=== PATIENT | female | born 1975 | race Caucasian/White ===

== ENCOUNTER 2016-11-07 17:06 | Inpatient (IN) | payer MEDICARE, OTHER ==
[~2016-11-07] VITALS: Ht 172.7 cm; Wt 78.0 kg
[~2016-11-07 17:06] MED LIST: ACET325T21 PO; ASPI-482 PO; CARV12.52 PO; CRESTOR10 MG PO; ECON15CR TP; FLUT16SP2 NS; GLIM4TAB2 PO; HYDR-2678 PO; HYOS0.12 PO; INSU100I17 SQ; INSU100V8 SQ; LOSA1TAB16 PO; MULT-246 PO; OMEG500C3 PO; PANT40TA3 PO; SILV400C TP; SUCR1TAB29 PO
[2016-11-07] MEDS ORDERED: IV NORMAL SALINE 1000ML BAG 1,000 ML IV SCH (17:51)
[2016-11-07] MEDS ORDERED: ONDANSETRON PF 4 MG/2 ML VIAL. IV ONE (18:00)
[2016-11-07 18:08] LABS: BILIRUBIN,URINE NEGATIVE (NEG); GLUCOSE,URINE NEGATIVE (NEG); NITRITE,URINE NEGATIVE (NEG); PH,URINE 6.5; PROTEIN,URINE NEGATIVE (NEG-TRACE); UROBILINOGEN,URINE 0.2 mg/dL (0.2 mg/dL)
[2016-11-07 18:14] LABS: BARBITURATES NEG (NEG); BENZODIAZEPINES NEG (NEG); CANNABINOIDS POS (NEG); COCAINE NEG (NEG); ETHANOL, URINE NEG (NEG); METHADONE NEG (NEG); OPIATES NEG (NEG); PHENCYCLIDINE NEG (NEG)
[2016-11-07 18:17] LABS: BASO # 0.1 x10^3/uL (0.0-0.2); BASO % 1 % (0-3); EOS % 4 % (0-3); HEMATOCRIT 26.4 % (36.0-47.0); HEMOGLOBIN 8.1 g/dL (12.0-15.5); LYMPH % 18 % (24-48); MEAN CORPUSCULAR HEMOGLOBIN 25 pg (25-35); MEAN CORPUSCULAR HGB CONC 31 g/dL (31-37); MEAN CORPUSCULAR VOLUME 80 fL (79-100); MONO % 9 % (0-9); NEUT % 68 % (31-73); PLATELET COUNT 253 x10^3/uL (140-400); RED BLOOD COUNT 3.28 x10^6/uL (3.50-5.40); RED CELL DISTRIBUTION WIDTH 16.8 % (11.5-14.5); WHITE BLOOD COUNT 5.6 x10^3/uL (4.0-11.0)
[2016-11-07] MEDS: FENTANYL PF 100 MCG/2 ML VIAL. IV PRN ×5 (18:17→23:23)
[2016-11-07 18:18] LABS: BACTERIA,URINE FEW /HPF (0-FEW); RBC,URINE 0 /HPF (0-2); SQUAMOUS EPITHELIAL CELL,UR FEW /LPF
[2016-11-07 18:25] LABS: PROTHROMBIN TIME PATIENT 12.3 SEC (11.7-14.0)
[2016-11-07] MEDS ORDERED: IOHEXOL 300 MG/ML 75 ML VIAL IV ONE (18:30)
[2016-11-07 18:35] LABS: CALCIUM 8.4 mg/dL (8.5-10.1); CREATININE 0.7 mg/dL (0.6-1.0); GFR 92.2; POTASSIUM 4.1 mmol/L (3.5-5.1)
[2016-11-07 18:41] LABS: ALBUMIN 3.6 g/dL (3.4-5.0); ALBUMIN/GLOBULIN RATIO 1.2 (1.0-1.7); TOTAL BILIRUBIN 0.1 mg/dL (0.2-1.0); TOTAL PROTEIN 6.5 g/dL (6.4-8.2)
--- NOTE | 2016-11-07 19:23 | RAD ---
PROCEDURE CT abdomen pelvis with contrast. HISTORY Left lower quadrant abdominal pain, vomiting, diarrhea, bloody stool. Appendectomy. Gastric bypass. TECHNIQUE Helical CT imaging of the abdomen and pelvis is performed after 75 cc Omnipaque 300 IV contrast. Oral contrast not given. PQRS: One or more the following individualized dose reduction techniques were utilized for the study: 1. Automated exposure control. 2. Adjustment of the mA and/or kV according to patient size. 3. Use of iterative reconstruction technique. COMPARISON CT abdomen pelvis with contrast, August 17, 2014. FINDINGS Mild bilateral dependent atelectasis. Cardiac size normal. Postsurgical change gastroesophageal junction. Cholecystectomy. Calcified granulomas in the spleen. Liver, pancreas, adrenal glands, kidneys, and abdominal aortic caliber normal. Small bowel anastomosis re-demonstrated. No dilated small bowel is seen. Moderate stool throughout the colon. Appendix surgically absent. No colon wall thickening. No abdominal adenopathy or free fluid. Urinary bladder is normal. Uterus unremarkable. Mild pelvic free fluid. There is trace left adnexal free fluid. No acute bone abnormality. IMPRESSION 1. Mild pelvic and left adnexal free fluid. Finding may be physiologic. 2. No acute abdominal or pelvic abnormality. Electronically signed by: Sammy Bravo MD (Nov 07, 2016 19:21:23)
--- NOTE | 2016-11-07 19:32 | ED.ADGEN ---
Past Medical History Past Medical History: Depression, GERD, Other Additional Past Medical Histor: ulcer, diverticulosis, chronic abd pain Past Surgical History: Appendectomy, Cholecystectomy, Gastric Bypass Additional Past Surgical Histo: hiatal hernia, ovari cyst, low body lift, 3 abd laps, 2 peg tubes, reversal Alcohol Use: None Drug Use: Marijuana Adult General Chief Complaint Chief Complaint: MULTIPLE COMPLAINTS HPI HPI Patient is a 41 year old woman, history of gastric bypass surgery status post several revisions, history of chronic abdominal pain, GERD, diverticulosis, who presents to the emergency department with complaint of left lower quadrant cramping abdominal pain for the past 3 days, associated with nausea, some vomiting, and diarrhea, which now has become bloody. Patient denies any fevers or chills, any urinary complaints, any injuries. She states that she has been taking [id number] medications at home without relief. Does not currently have a GI physician. No recent surgeries or procedures. No recent travel. No chest pain, no shortness breath, no lightheadedness or dizziness. Review of Systems Review of Systems Constitutional: Denies fever or chills. [] Eyes: Denies change in visual acuity. [] HENT: Denies nasal congestion or sore throat. [] Respiratory: Denies cough or shortness of breath. [] Cardiovascular: Denies chest pain or edema. [] GI: Cramping left lower quadrant abdominal pain associated nausea, vomiting, bloody stools and diarrhea. No no tarry stools, patient with dark red blood from rectum. : Denies dysuria. [] Musculoskeletal: Denies back pain or joint pain. [] Integument: Denies rash. [] Neurologic: Denies headache, focal weakness or sensory changes. [] Endocrine: Denies polyuria or polydipsia. [] Lymphatic: Denies swollen glands. [] Psychiatric: Denies depression or anxiety. [] Current Medications Current Medications Current Medications Medications (Trade) Dose Ordered Sig/Carol Start Time Stop Time Status Last Admin Dose Admin Fentanyl Citrate 50 mcg 50 mcg PRN Q15MIN PRN 11/07/16 18:00 11/08/16 17:59 11/07/16 20:27 50 MCG Iohexol (Omnipaque 300 Mg/ml) 75 ml 1X ONCE 11/07/16 18:30 11/07/16 18:31 DC 11/07/16 18:59 75 ML Ondansetron HCl (Zofran) 4 mg 1X ONCE 11/07/16 18:00 11/07/16 18:01 DC 11/07/16 18:15 4 MG Sodium Chloride (Iv Sodium Chloride 0.9% 1000ml Bag) 1,000 ml @ 1,000 mls/hr Q1H 11/07/16 17:51 11/07/16 18:50 DC 11/07/16 18:14 1,000 MLS/HR Allergies Allergies Allergies Coded Allergies Type Severity Reaction Last Updated Verified diphenhydramine Allergy Severe hallucinations/ams 06/07/14 Yes promethazine Allergy Severe confusion/ams 06/07/14 Yes sumatriptan Allergy Severe ANAPHYLAXIS 06/07/14 Yes morphine Allergy Intermediate HIVES 06/07/14 Yes haloperidol Allergy Unknown 08/26/14 No NSAIDS (Non-Steroidal Anti-Inflamma Adverse Reaction Severe bleeding. 06/04/14 Yes metoclopramide Adverse Reaction Mild Unknown 07/29/14 Yes prochlorperazine Adverse Reaction Mild Unknown 07/29/14 Yes Physical Exam Physical Exam Constitutional: Well developed, well nourished, no acute distress, non-toxic appearance. [] HENT: Normocephalic, atraumatic, bilateral external ears normal, oropharynx moist, no oral exudates, nose normal. [] Eyes: PERRLA, EOMI, conjunctiva normal, no discharge. [] Neck: Normal range of motion, no tenderness, supple, no stridor. [] Cardiovascular:Heart rate regular rhythm, no murmur, S1, S2, rubs or gallops. [] Lungs & Thorax: Bilateral breath sounds clear to auscultation, no wheezing, rhonchi, rales. No chest wall crepitus or tenderness. [] Abdomen: Patient with tenderness to palpation of the left lower quadrant, positive voluntary guarding, no rebound, rigidity. Skin: Warm, dry, no erythema, no rash. [] Back: No tenderness, no CVA tenderness. [] Extremities: No tenderness, no cyanosis, no clubbing, ROM intact, no edema. [] Neurologic: Alert and oriented X 3, normal motor function, normal sensory function, no focal deficits noted. [] Psychologic: Affect normal, judgement normal, mood normal. [] Current Patient Data Vital Signs Vital Signs Date Time Temp Pulse Resp B/P Pulse Ox O2 Delivery O2 Flow Rate FiO2 11/07/16 19:55 64 11 104/62 97 Room Air 11/07/16 17:08 98.8 98.8 Lab Values Laboratory Tests Test 11/07/16 17:15 11/07/16 17:45 11/07/16 18:46 Urine Collection Type Unknown Urine Color Yellow Urine Clarity Clear Urine pH 6.5 Urine Specific [place] 1.010 Urine Protein Negativemg/dL (NEG-TRACE) Urine Glucose (UA) Negativemg/dL (NEG) Urine Ketones (Stick) Negativemg/dL (NEG) Urine Blood Negative (NEG) Urine Nitrite Negative (NEG) Urine Bilirubin Negative (NEG) Urine Urobilinogen Dipstick 0.2mg/dL (0.2 mg/dL) Urine Leukocyte Esterase Negative (NEG) Urine RBC 0/HPF (0-2) Urine WBC 1-4/HPF (0-4) Urine Squamous Epithelial Cells Few/LPF Urine Bacteria Few/HPF (0-FEW) Urine Opiates Screen Neg (NEG) Urine Methadone Screen Neg (NEG) Urine Barbiturates Neg (NEG) Urine Phencyclidine Screen Neg (NEG) Urine Amphetamine/Methamphetamine Neg (NEG) Urine Benzodiazepines Screen Neg (NEG) Urine Cocaine Screen Neg (NEG) Urine Cannabinoids Screen Pos (NEG) Urine Ethyl Alcohol Neg (NEG) White Blood Count 5.6x10^3/uL (4.0-11.0) Red Blood Count 3.28x10^6/uL (3.50-5.40) L Hemoglobin 8.1g/dL (12.0-15.5) L Hematocrit 26.4% (36.0-47.0) L Mean Corpuscular Volume 80fL (79-100) Mean Corpuscular Hemoglobin 25pg (25-35) Mean Corpuscular Hemoglobin Concent 31g/dL (31-37) Red Cell Distribution Width 16.8% (11.5-14.5) H Platelet Count 253x10^3/uL (140-400) Neutrophils (%) (Auto) 68% (31-73) Lymphocytes (%) (Auto) 18% (24-48) L Monocytes (%) (Auto) 9% (0-9) Eosinophils (%) (Auto) 4% (0-3) H Basophils (%) (Auto) 1% (0-3) Neutrophils # (Auto) 3.8x10^3uL (1.8-7.7) Lymphocytes # (Auto) 1.0x10^3/uL (1.0-4.8) Monocytes # (Auto) 0.5x10^3/uL (0.0-1.1) Eosinophils # (Auto) 0.2x10^3/uL (0.0-0.7) Basophils # (Auto) 0.1x10^3/uL (0.0-0.2) Prothrombin Time 12.3SEC (11.7-14.0) Prothrombin Time INR 1.0 (0.8-1.1) PTT 29SEC (24-38) Sodium Level 143mmol/L (136-145) Potassium Level 4.1mmol/L (3.5-5.1) Chloride Level 108mmol/L (98-107) H Carbon Dioxide Level 25mmol/L (21-32) Anion Gap 10 (6-14) Blood Urea Nitrogen 15mg/dL (7-20) Creatinine 0.7mg/dL (0.6-1.0) Estimated GFR (Cockcroft-Gault) 92.2 BUN/Creatinine Ratio 21 (6-20) H Glucose Level 100mg/dL (70-99) H Calcium Level 8.4mg/dL (8.5-10.1) L Total Bilirubin 0.1mg/dL (0.2-1.0) L Aspartate Amino Transferase (AST) 17U/L (15-37) Alanine Aminotransferase (ALT) 30U/L (14-59) Alkaline Phosphatase 103U/L (46-116) Total Protein 6.5g/dL (6.4-8.2) Albumin 3.6g/dL (3.4-5.0) Albumin/Globulin Ratio 1.2 (1.0-1.7) Lipase 57U/L (73-393) L Stool Occult Blood Positive (NEG) Laboratory Tests 11/07/16 17:45 Laboratory Tests 11/07/16 17:45 EKG EKG EC: Sinus rhythm, heart rate 76 beats minute, upright axis, QTC of 411, QRS of 60, [place] 148, no ST elevations or depressions, no evidence of acute ST abnormalities. As interpreted by me. [] Radiology/Procedures Radiology/Procedures [] [facility] [address] [place], [place] [id number] IMAGING REPORT Signed PATIENT: SEFERINO TAPIA ACCOUNT: [id number] : 1975 LOCATION: ER AGE: 41 SEX: F EXAM STATUS: REG ER ORD. PHYSICIAN: EILEEN VELASQUEZ DO REASON: abd pain/vomiting/diarrhea/bloody stool PROCEDURE: CT ABD PELV W/ IV CONTRST ONLY PROCEDURE CT abdomen pelvis with contrast. HISTORY Left lower quadrant abdominal pain, vomiting, diarrhea, bloody stool. Appendectomy. Gastric bypass. TECHNIQUE Helical CT imaging of the abdomen and pelvis is performed after 75 cc Omnipaque 300 IV contrast. Oral contrast not given. PQRS: One or more the following individualized dose reduction techniques were utilized for the study: 1. Automated exposure control. 2. Adjustment of the mA and/or kV according to patient size. 3. Use of iterative reconstruction technique. COMPARISON CT abdomen pelvis with contrast, August 17, 2014. FINDINGS Mild bilateral dependent atelectasis. Cardiac size normal. Postsurgical change gastroesophageal junction. Cholecystectomy. Calcified granulomas in the spleen. Liver, pancreas, adrenal glands, kidneys, and abdominal aortic caliber normal. Small bowel anastomosis re-demonstrated. No dilated small bowel is seen. Moderate stool throughout the colon. Appendix surgically absent. No colon wall thickening. No abdominal adenopathy or free fluid. Urinary bladder is normal. Uterus unremarkable. Mild pelvic free fluid. There is trace left adnexal free fluid. No acute bone abnormality. IMPRESSION 1. Mild pelvic and left adnexal free fluid. Finding may be physiologic. 2. No acute abdominal or pelvic abnormality. Electronically signed by: Sammy Bravo MD (Nov 07, 2016 19:21:23) DICTATED and SIGNED BY: SAMMY BRAVO MD DATE: 11/07/161920 Course & Med Decision Making Course & Med Decision Making Pertinent Labs and Imaging studies reviewed. (See chart for details) H and symptoms improved after receiving fentanyl, IV fluids and antiemetics in the ED. Is have some pain, but nausea is resolved. Noted to have gross blood on rectal examination. CT of abdomen and pelvis did not reveal any evidence of obstruction or inflammation, however small amount of abdominal fluid noted, which is consistent with physiologic based on radiology interpretation. Patient states she has a history of ovarian cysts, Patient with a hemoglobin of 8.1. Patient has history of anemia, but has not previously had a hemoglobin this low she denies any lightheadedness, any dizziness, and remained totally stable in the emergency department. After discussion of findings at bedside, patient is agreeable for admission to the hospital for evaluation by GI and continued monitoring. Along with symptomatic management. Findings as above discussed with of internal medicine, patient accepted to his service as a full admission to the medical telemetry floor, for monitoring, consultation with GI. Bridge orders entered per discussion. Dragon Disclaimer Dragon Disclaimer This electronic medical record was generated, in whole or in part, using a voice recognition dictation system. Departure Impression: Primary Impression: Abdominal pain Additional Impression: GI (gastrointestinal bleed) Disposition: ADMITTED INPATIENT Admitting Physician: Candelario Suárez Condition: IMPROVED Problem Qualifiers EILEEN VELASQUEZ DO Nov 07, 2016 19:32
[2016-11-07 20:01] LABS: NEG OBC FOB NEG; POS OBC FOB POS
[2016-11-07] MEDS ORDERED: FENTANYL PF 100 MCG/2 ML VIAL. IV PRN (20:45)
[2016-11-07] MEDS ORDERED: ACETAMINOPHEN 325 MG TABLET. PO PRN (20:45)
[2016-11-07 22:00] VITALS: BP 118/46
[2016-11-07 23:15] VITALS: BP 117/54
[2016-11-07] MEDS: IV NORMAL SALINE 1000ML BAG 1,000 ML IV SCH (23:17)
[2016-11-07] MEDS ORDERED: OLAN10TA3 PO (23:45)
[2016-11-07] MEDS ORDERED: OMEP40CA5 PO (23:45)
[2016-11-07] MEDS ORDERED: DIVA500T2 PO (23:45)
[2016-11-07] MEDS ORDERED: ZOLP10TA PO (23:45)
[2016-11-07] MEDS ORDERED: ONDA4TAB7 PO (23:45)
[2016-11-07] MEDS ORDERED: SERT50TA PO (23:45)
[2016-11-08] MEDS: FENTANYL PF 100 MCG/2 ML VIAL. IV PRN ×11 (00:43→23:39)
[2016-11-08] MEDS: ONDANSETRON PF 4 MG/2 ML VIAL. IV PRN ×2 (00:44→12:28)
[2016-11-08 03:15] VITALS: BP 94/56
[2016-11-08 04:11] LABS: BASO # 0.1 x10^3/uL (0.0-0.2); BASO % 1 % (0-3); EOS % 4 % (0-3); HEMOGLOBIN 7.3 g/dL (12.0-15.5); LYMPH # 1.4 x10^3/uL (1.0-4.8); LYMPH % 27 % (24-48); MEAN CORPUSCULAR HEMOGLOBIN 25 pg (25-35); MEAN CORPUSCULAR HGB CONC 30 g/dL (31-37); MEAN CORPUSCULAR VOLUME 81 fL (79-100); MONO % 7 % (0-9); NEUT % 60 % (31-73); PLATELET COUNT 204 x10^3/uL (140-400); RED BLOOD COUNT 2.97 x10^6/uL (3.50-5.40); RED CELL DISTRIBUTION WIDTH 17.1 % (11.5-14.5)
[2016-11-08 04:27] LABS: CALCIUM 8.1 mg/dL (8.5-10.1); CREATININE 0.6 mg/dL (0.6-1.0); GFR 110.2; POTASSIUM 3.5 mmol/L (3.5-5.1)
--- NOTE | 2016-11-08 06:50 | EKG ---
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
[2016-11-08 07:00] VITALS: BP 104/68
[2016-11-08] MEDS: IV NORMAL SALINE 1000ML BAG 1,000 ML IV SCH ×2 (07:56→13:35)
[2016-11-08] MEDS ORDERED: IV RINGERS,LACTATED 1000ML 1,000 ML IV SCH (10:45)
[2016-11-08] MEDS ORDERED: PROPOFOL 20 ML IV ONE ×2 (11:22→11:37)
[2016-11-08] MEDS ORDERED: FENTANYL PF 100 MCG/2 ML VIAL. ONE (11:22)
[2016-11-08] MEDS ORDERED: LIDOCAINE 2% PF Vial for OR 5 ML VIAL. ONE (11:22)
--- NOTE | 2016-11-08 11:35 | PDOC2 ---
CONSULT Date of Consult Date of Consult DATE: 11/08/16 TIME: 11:33 Reason for Consult Reason for Consult: Acute blood loss anemia/S/p gastric bypass/LLQ abd pain Current Problem List Problem List Problems Medical Problems: (1) Abdominal pain Status: Acute (2) GI (gastrointestinal bleed) Status: Acute (3) Lower GI bleeding Status: Acute Current Medications Current Medications Current Medications Fentanyl Citrate 50 mcg 50 mcg PRN Q15MIN PRN IV PAIN GREATER THAN 3/10 Last administered on 11/07/16 21:11; Start 11/07/16 at 18:00; Stop 11/07/16 at 22:51 ; Status DC Sodium Chloride (Iv Sodium Chloride 0.9% 1000ml Bag) 1,000 ml @ 1,000 mls/hr Q1H IV Last administered on 11/07/16 18:14; Start 11/07/16 at 17:51; Stop at 18:50; Status DC Ondansetron HCl (Zofran) 4 mg 1X ONCE IV Last administered on 11/07/16 18:15 ; Start 11/07/16 at 18:00; Stop 11/07/16 at 18:01; Status DC Iohexol (Omnipaque 300 Mg/ml) 75 ml 1X ONCE IV Last administered on 11/07/16 18:59; Start 11/07/16 at 18:30; Stop 11/07/16 at 18:31; Status DC Ondansetron HCl (Zofran) 4 mg PRN Q8HRS PRN IV NAUSEA/VOMITING Last administered on 11/08/16 00:44; Start 11/07/16 at 20:45; Stop 11/08/16 at 20:44 Fentanyl Citrate 50 mcg 50 mcg PRN Q1HR PRN IV PAIN; Start 11/07/16 at 20:45; Stop 11/07/16 at 22:51; Status DC Sodium Chloride (Iv Sodium Chloride 0.9% 1000ml Bag) 1,000 ml @ 125 mls/hr Q8H IV Last administered on 11/08/16 07:56; Start 11/07/16 at 20:34; Stop at 20:33 Acetaminophen (Tylenol) 650 mg PRN Q4HRS PRN PO FEVER; Start 11/07/16 at 20:45 ; Stop 11/08/16 at 20:44 Fentanyl Citrate 75 mcg 75 mcg PRN Q1HR PRN IV SEVERE PAIN Last administered on 11/08/16 09:06; Start 11/07/16 at 23:00 Lactated Ringer's (Iv Lactated Ringers) 1,000 ml @ 0 mls/hr Q0M IV Last administered on 11/08/16 10:40; Start 11/08/16 at 10:45 Fentanyl Citrate 100 mcg 100 mcg STK-MED ONCE .ROUTE ; Start 11/08/16 at 11:22; Stop 11/08/16 at 11:23; Status DC Propofol (Diprivan) 20 ml @ As Directed STK-MED ONCE IV ; Start 11/08/16 at 11: 22; Stop 11/08/16 at 11:23; Status DC Lidocaine HCl (Lidocaine Pf 2% Vial) 5 ml STK-MED ONCE .ROUTE ; Start 11/08/16 at 11:22; Stop 11/08/16 at 11:23; Status DC Active Scripts Active Lortab 5-325 mg Tablet (Hydrocodone/Acetaminophen) 1 Each Tablet 1 Tab PO PRN Q6HRS PRN Anaspaz (Hyoscyamine Sulfate) 0.125 Mg Tab.rapdis 0.125 Mg PO PRN Q4HRS PRN Protonix (Pantoprazole Sodium) 40 Mg Tablet 40 Mg PO BIDAC Carafate (Sucralfate) 1 Gm Tablet 1 Gm PO QID Reported Ambien (Zolpidem Tartrate) 10 Mg Tablet 1 Tab PO QHS Depakote (Divalproex Sodium) 500 Mg Tablet. 1 Tab PO BID Zyprexa (Olanzapine) 10 Mg Tablet 1 Tab PO QHS Zoloft (Sertraline Hcl) 50 Mg Tablet 1 Tab PO HS Zofran (Ondansetron Hcl) 4 Mg Tablet 1 Tab PO PRN Q6HRS PRN Omeprazole 40 Mg Capsule.dr 1 Cap PO BID Allergies Allergies: Coded Allergies: diphenhydramine (Verified Allergy, Severe, hallucinations/ams, 06/07/14) promethazine (Verified Allergy, Severe, confusion/ams, 06/07/14) sumatriptan (Verified Allergy, Severe, ANAPHYLAXIS, 06/07/14) haloperidol (Unverified Allergy, Intermediate, 11/07/16) morphine (Verified Allergy, Intermediate, HIVES, 06/07/14) NSAIDS (Non-Steroidal Anti-Inflamma (Verified Adverse Reaction, Severe, bleeding., 06/04/14) pt has ulcer hx, hx bleeding problems metoclopramide (Verified Adverse Reaction, Mild, 11/07/16) prochlorperazine (Verified Adverse Reaction, Mild, 11/07/16) Vitals VITALS Vital Signs Date Time Temp Pulse Resp B/P Pulse Ox O2 Delivery O2 Flow Rate FiO2 11/08/16 10:32 97.1 62 18 97 97.1 11/08/16 10:32 Room Air 11/08/16 07:00 104/68 Labs Labs Laboratory Tests Test 11/07/16 17:15 11/07/16 17:45 11/07/16 18:46 11/08/16 03:30 Urine Collection Type Unknown Urine Color Yellow Urine Clarity Clear Urine pH 6.5 Urine Specific [place] 1.010 Urine Protein Negativemg/dL (NEG-TRACE) Urine Glucose (UA) Negativemg/dL (NEG) Urine Ketones (Stick) Negativemg/dL (NEG) Urine Blood Negative (NEG) Urine Nitrite Negative (NEG) Urine Bilirubin Negative (NEG) Urine Urobilinogen Dipstick 0.2mg/dL (0.2 mg/dL) Urine Leukocyte Esterase Negative (NEG) Urine RBC 0/HPF (0-2) Urine WBC 1-4/HPF (0-4) Urine Squamous Epithelial Cells Few/LPF Urine Bacteria Few/HPF (0-FEW) Urine Opiates Screen Neg (NEG) Urine Methadone Screen Neg (NEG) Urine Barbiturates Neg (NEG) Urine Phencyclidine Screen Neg (NEG) Urine Amphetamine/Methamphetamine Neg (NEG) Urine Benzodiazepines Screen Neg (NEG) Urine Cocaine Screen Neg (NEG) Urine Cannabinoids Screen Pos (NEG) Urine Ethyl Alcohol Neg (NEG) White Blood Count 5.6x10^3/uL (4.0-11.0) 5.0x10^3/uL (4.0-11.0) Red Blood Count 3.28x10^6/uL (3.50-5.40) 2.97x10^6/uL (3.50-5.40) Hemoglobin 8.1g/dL (12.0-15.5) 7.3g/dL (12.0-15.5) Hematocrit 26.4% (36.0-47.0) 24.0% (36.0-47.0) Mean Corpuscular Volume 80fL (79-100) 81fL (79-100) Mean Corpuscular Hemoglobin 25pg (25-35) 25pg (25-35) Mean Corpuscular Hemoglobin Concent 31g/dL (31-37) 30g/dL (31-37) Red Cell Distribution Width 16.8% (11.5-14.5) 17.1% (11.5-14.5) Platelet Count 253x10^3/uL (140-400) 204x10^3/uL (140-400) Neutrophils (%) (Auto) 68% (31-73) 60% (31-73) Lymphocytes (%) (Auto) 18% (24-48) 27% (24-48) Monocytes (%) (Auto) 9% (0-9) 7% (0-9) Eosinophils (%) (Auto) 4% (0-3) 4% (0-3) Basophils (%) (Auto) 1% (0-3) 1% (0-3) Neutrophils # (Auto) 3.8x10^3uL (1.8-7.7) 3.0x10^3uL (1.8-7.7) Lymphocytes # (Auto) 1.0x10^3/uL (1.0-4.8) 1.4x10^3/uL (1.0-4.8) Monocytes # (Auto) 0.5x10^3/uL (0.0-1.1) 0.4x10^3/uL (0.0-1.1) Eosinophils # (Auto) 0.2x10^3/uL (0.0-0.7) 0.2x10^3/uL (0.0-0.7) Basophils # (Auto) 0.1x10^3/uL (0.0-0.2) 0.1x10^3/uL (0.0-0.2) Prothrombin Time 12.3SEC (11.7-14.0) Prothromb Time International Ratio 1.0 (0.8-1.1) Activated Partial Thromboplast Time 29SEC (24-38) Sodium Level 143mmol/L (136-145) 145mmol/L (136-145) Potassium Level 4.1mmol/L (3.5-5.1) 3.5mmol/L (3.5-5.1) Chloride Level 108mmol/L (98-107) 110mmol/L (98-107) Carbon Dioxide Level 25mmol/L (21-32) 29mmol/L (21-32) Anion Gap 10 (6-14) 6 (6-14) Blood Urea Nitrogen 15mg/dL (7-20) 13mg/dL (7-20) Creatinine 0.7mg/dL (0.6-1.0) 0.6mg/dL (0.6-1.0) Estimated GFR (Cockcroft-Gault) 92.2 110.2 BUN/Creatinine Ratio 21 (6-20) Glucose Level 100mg/dL (70-99) 91mg/dL (70-99) Calcium Level 8.4mg/dL (8.5-10.1) 8.1mg/dL (8.5-10.1) Total Bilirubin 0.1mg/dL (0.2-1.0) Aspartate Amino Transf (AST/SGOT) 17U/L (15-37) Alanine Aminotransferase (ALT/SGPT) 30U/L (14-59) Alkaline Phosphatase 103U/L (46-116) Total Protein 6.5g/dL (6.4-8.2) Albumin 3.6g/dL (3.4-5.0) Albumin/Globulin Ratio 1.2 (1.0-1.7) Lipase 57U/L (73-393) Stool Occult Blood Positive (NEG) Laboratory Tests Test 11/07/16 17:15 11/07/16 17:45 11/07/16 18:46 11/08/16 03:30 Urine Collection Type Unknown Urine Color Yellow Urine Clarity Clear Urine pH 6.5 Urine Specific [place] 1.010 Urine Protein Negativemg/dL (NEG-TRACE) Urine Glucose (UA) Negativemg/dL (NEG) Urine Ketones (Stick) Negativemg/dL (NEG) Urine Blood Negative (NEG) Urine Nitrite Negative (NEG) Urine Bilirubin Negative (NEG) Urine Urobilinogen Dipstick 0.2mg/dL (0.2 mg/dL) Urine Leukocyte Esterase Negative (NEG) Urine RBC 0/HPF (0-2) Urine WBC 1-4/HPF (0-4) Urine Squamous Epithelial Cells Few/LPF Urine Bacteria Few/HPF (0-FEW) Urine Opiates Screen Neg (NEG) Urine Methadone Screen Neg (NEG) Urine Barbiturates Neg (NEG) Urine Phencyclidine Screen Neg (NEG) Urine Amphetamine/Methamphetamine Neg (NEG) Urine Benzodiazepines Screen Neg (NEG) Urine Cocaine Screen Neg (NEG) Urine Cannabinoids Screen Pos (NEG) Urine Ethyl Alcohol Neg (NEG) White Blood Count 5.6x10^3/uL (4.0-11.0) 5.0x10^3/uL (4.0-11.0) Red Blood Count 3.28x10^6/uL (3.50-5.40) 2.97x10^6/uL (3.50-5.40) Hemoglobin 8.1g/dL (12.0-15.5) 7.3g/dL (12.0-15.5) Hematocrit 26.4% (36.0-47.0) 24.0% (36.0-47.0) Mean Corpuscular Volume 80fL (79-100) 81fL (79-100) Mean Corpuscular Hemoglobin 25pg (25-35) 25pg (25-35) Mean Corpuscular Hemoglobin Concent 31g/dL (31-37) 30g/dL (31-37) Red Cell Distribution Width 16.8% (11.5-14.5) 17.1% (11.5-14.5) Platelet Count 253x10^3/uL (140-400) 204x10^3/uL (140-400) Neutrophils (%) (Auto) 68% (31-73) 60% (31-73) Lymphocytes (%) (Auto) 18% (24-48) 27% (24-48) Monocytes (%) (Auto) 9% (0-9) 7% (0-9) Eosinophils (%) (Auto) 4% (0-3) 4% (0-3) Basophils (%) (Auto) 1% (0-3) 1% (0-3) Neutrophils # (Auto) 3.8x10^3uL (1.8-7.7) 3.0x10^3uL (1.8-7.7) Lymphocytes # (Auto) 1.0x10^3/uL (1.0-4.8) 1.4x10^3/uL (1.0-4.8) Monocytes # (Auto) 0.5x10^3/uL (0.0-1.1) 0.4x10^3/uL (0.0-1.1) Eosinophils # (Auto) 0.2x10^3/uL (0.0-0.7) 0.2x10^3/uL (0.0-0.7) Basophils # (Auto) 0.1x10^3/uL (0.0-0.2) 0.1x10^3/uL (0.0-0.2) Prothrombin Time 12.3SEC (11.7-14.0) Prothromb Time International Ratio 1.0 (0.8-1.1) Activated Partial Thromboplast Time 29SEC (24-38) Sodium Level 143mmol/L (136-145) 145mmol/L (136-145) Potassium Level 4.1mmol/L (3.5-5.1) 3.5mmol/L (3.5-5.1) Chloride Level 108mmol/L (98-107) 110mmol/L (98-107) Carbon Dioxide Level 25mmol/L (21-32) 29mmol/L (21-32) Anion Gap 10 (6-14) 6 (6-14) Blood Urea Nitrogen 15mg/dL (7-20) 13mg/dL (7-20) Creatinine 0.7mg/dL (0.6-1.0) 0.6mg/dL (0.6-1.0) Estimated GFR (Cockcroft-Gault) 92.2 110.2 BUN/Creatinine Ratio 21 (6-20) Glucose Level 100mg/dL (70-99) 91mg/dL (70-99) Calcium Level 8.4mg/dL (8.5-10.1) 8.1mg/dL (8.5-10.1) Total Bilirubin 0.1mg/dL (0.2-1.0) Aspartate Amino Transf (AST/SGOT) 17U/L (15-37) Alanine Aminotransferase (ALT/SGPT) 30U/L (14-59) Alkaline Phosphatase 103U/L (46-116) Total Protein 6.5g/dL (6.4-8.2) Albumin 3.6g/dL (3.4-5.0) Albumin/Globulin Ratio 1.2 (1.0-1.7) Lipase 57U/L (73-393) Stool Occult Blood Positive (NEG) Assessment/Plan Assessment/Plan Acute blood loss anemia- S/p gastric bypass, with history of anastomotic ulcers , differential also includes malignancy, AVMS, IBD, colon/gastric polyps, ischemia, and/or Claros's. Plan serial cbcs transfusional support egd to further assess if unrevealing, then bleeding scan/heme parameters and/or colonoscopy may be needed pending clinical course Full note dictated WILL KELLER MD Nov 08, 2016 11:35
--- NOTE | 2016-11-08 11:47 | PDOC4 ---
Operative Note Operative Note EGD Meds propofol per anesthesia Pre-op dx acute blood loss anemia/melena Post-op dx s/p gastric bypass reversal non-erosive gastritis Plan bleedings scan transfuse 1 unit PRBC WILL KELLER MD Nov 08, 2016 11:46
--- NOTE | 2016-11-08 14:23 | PDOC1 ---
History and Physical Current Problem List Problem List Problems Medical Problems: (1) Abdominal pain Status: Acute (2) GI (gastrointestinal bleed) Status: Acute (3) Lower GI bleeding Status: Acute Current Medications Current Medications Current Medications Medications (Trade) Dose Ordered Sig/Carol Start Time Stop Time Status Last Admin Dose Admin Acetaminophen (Tylenol) 650 mg PRN Q4HRS PRN 11/07/16 20:45 11/08/16 20:44 Fentanyl Citrate (Fentanyl 2ml Vial) 100 mcg STK-MED ONCE 11/08/16 11:22 11/08/16 11:23 DC Fentanyl Citrate 50 mcg 50 mcg PRN Q1HR PRN 11/07/16 20:45 11/07/16 22:51 DC Fentanyl Citrate 75 mcg 75 mcg PRN Q1HR PRN 11/07/16 23:00 11/08/16 13:36 75 MCG Iohexol (Omnipaque 300 Mg/ml) 75 ml 1X ONCE 11/07/16 18:30 11/07/16 18:31 DC 11/07/16 18:59 75 ML Lactated Ringer's (Iv Lactated Ringers) 1,000 ml @ 0 mls/hr Q0M 11/08/16 10:45 11/08/16 10:40 100 MLS/HR Lidocaine HCl 5 ml 5 ml STK-MED ONCE 11/08/16 11:22 11/08/16 11:23 DC Ondansetron HCl (Zofran) 4 mg PRN Q8HRS PRN 11/07/16 20:45 11/08/16 20:44 11/08/16 12:28 4 MG Propofol (Diprivan) 20 ml @ As Directed STK-MED ONCE 11/08/16 11:37 11/08/16 11:38 DC Sodium Chloride (Iv Sodium Chloride 0.9% 1000ml Bag) 1,000 ml @ 125 mls/hr Q8H 11/07/16 20:34 11/08/16 20:33 11/08/16 13:35 125 MLS/HR Allergies Allergies Allergies Coded Allergies Type Severity Reaction Last Updated Verified diphenhydramine Allergy Severe hallucinations/ams 11/08/16 Yes promethazine Allergy Severe confusion/ams 11/08/16 Yes sumatriptan Allergy Severe ANAPHYLAXIS 11/08/16 Yes haloperidol Allergy Intermediate 11/08/16 No morphine Allergy Intermediate HIVES 06/07/14 Yes NSAIDS (Non-Steroidal Anti-Inflamma Adverse Reaction Severe bleeding. 06/04/14 Yes metoclopramide Adverse Reaction Mild 11/07/16 Yes prochlorperazine Adverse Reaction Mild 11/07/16 Yes ROS Review of System CONSTITUTIONAL: No fever or chills EYES: No recent changes SKIN: No rash or itching CARDIOVASCULAR: No chest pain, syncope, palpitations, or edema RESPIRATORY: No SOB or cough GASTROINTESTINAL: abdominal pain, Black color stool NEUROLOGICAL: No headaches or weakness ENDOCRINE: No cold or heat intolerance GENITOURINARY: No urgency or frequency of urination MUSCULOSKELETAL: No back pain or joint pain LYMPHATICS: No enlarged lymph nodes PSYCHIATRIC: No anxiety or depression Physical Exam Physical Exam GEN.: No apparent distress. Alert and oriented. HEENT: Head is normocephalic, atraumatic NECK: Supple.no JVD LUNGS: Clear to auscultation. normal airflow HEART: RRR, S1, S2 present. Peripheral pulses intact ABDOMEN: Soft, RLQ tender. Positive bowel sounds. EXTREMITIES: Without any cyanosis. NEUROLOGIC: Normal speech, normal tone PSYCHIATRIC: Normal affect, normal mood. SKIN: No ulcerations Vitals Vitals Vital Signs Date Time Temp Pulse Resp B/P Pulse Ox O2 Delivery O2 Flow Rate FiO2 11/08/16 13:36 Room Air 11/08/16 12:04 98.0 68 20 116/73 96 98.0 Labs Labs Laboratory Tests Test 11/07/16 17:15 11/07/16 17:45 11/07/16 18:46 11/08/16 03:30 Urine Collection Type Unknown Urine Color Yellow Urine Clarity Clear Urine pH 6.5 Urine Specific [place] 1.010 Urine Protein Negativemg/dL (NEG-TRACE) Urine Glucose (UA) Negativemg/dL (NEG) Urine Ketones (Stick) Negativemg/dL (NEG) Urine Blood Negative (NEG) Urine Nitrite Negative (NEG) Urine Bilirubin Negative (NEG) Urine Urobilinogen Dipstick 0.2mg/dL (0.2 mg/dL) Urine Leukocyte Esterase Negative (NEG) Urine RBC 0/HPF (0-2) Urine WBC 1-4/HPF (0-4) Urine Squamous Epithelial Cells Few/LPF Urine Bacteria Few/HPF (0-FEW) Urine Opiates Screen Neg (NEG) Urine Methadone Screen Neg (NEG) Urine Barbiturates Neg (NEG) Urine Phencyclidine Screen Neg (NEG) Urine Amphetamine/Methamphetamine Neg (NEG) Urine Benzodiazepines Screen Neg (NEG) Urine Cocaine Screen Neg (NEG) Urine Cannabinoids Screen Pos (NEG) Urine Ethyl Alcohol Neg (NEG) White Blood Count 5.6x10^3/uL (4.0-11.0) 5.0x10^3/uL (4.0-11.0) Red Blood Count 3.28x10^6/uL (3.50-5.40) 2.97x10^6/uL (3.50-5.40) Hemoglobin 8.1g/dL (12.0-15.5) 7.3g/dL (12.0-15.5) Hematocrit 26.4% (36.0-47.0) 24.0% (36.0-47.0) Mean Corpuscular Volume 80fL (79-100) 81fL (79-100) Mean Corpuscular Hemoglobin 25pg (25-35) 25pg (25-35) Mean Corpuscular Hemoglobin Concent 31g/dL (31-37) 30g/dL (31-37) Red Cell Distribution Width 16.8% (11.5-14.5) 17.1% (11.5-14.5) Platelet Count 253x10^3/uL (140-400) 204x10^3/uL (140-400) Neutrophils (%) (Auto) 68% (31-73) 60% (31-73) Lymphocytes (%) (Auto) 18% (24-48) 27% (24-48) Monocytes (%) (Auto) 9% (0-9) 7% (0-9) Eosinophils (%) (Auto) 4% (0-3) 4% (0-3) Basophils (%) (Auto) 1% (0-3) 1% (0-3) Neutrophils # (Auto) 3.8x10^3uL (1.8-7.7) 3.0x10^3uL (1.8-7.7) Lymphocytes # (Auto) 1.0x10^3/uL (1.0-4.8) 1.4x10^3/uL (1.0-4.8) Monocytes # (Auto) 0.5x10^3/uL (0.0-1.1) 0.4x10^3/uL (0.0-1.1) Eosinophils # (Auto) 0.2x10^3/uL (0.0-0.7) 0.2x10^3/uL (0.0-0.7) Basophils # (Auto) 0.1x10^3/uL (0.0-0.2) 0.1x10^3/uL (0.0-0.2) Prothrombin Time 12.3SEC (11.7-14.0) Prothromb Time International Ratio 1.0 (0.8-1.1) Activated Partial Thromboplast Time 29SEC (24-38) Sodium Level 143mmol/L (136-145) 145mmol/L (136-145) Potassium Level 4.1mmol/L (3.5-5.1) 3.5mmol/L (3.5-5.1) Chloride Level 108mmol/L (98-107) 110mmol/L (98-107) Carbon Dioxide Level 25mmol/L (21-32) 29mmol/L (21-32) Anion Gap 10 (6-14) 6 (6-14) Blood Urea Nitrogen 15mg/dL (7-20) 13mg/dL (7-20) Creatinine 0.7mg/dL (0.6-1.0) 0.6mg/dL (0.6-1.0) Estimated GFR (Cockcroft-Gault) 92.2 110.2 BUN/Creatinine Ratio 21 (6-20) Glucose Level 100mg/dL (70-99) 91mg/dL (70-99) Calcium Level 8.4mg/dL (8.5-10.1) 8.1mg/dL (8.5-10.1) Total Bilirubin 0.1mg/dL (0.2-1.0) Aspartate Amino Transf (AST/SGOT) 17U/L (15-37) Alanine Aminotransferase (ALT/SGPT) 30U/L (14-59) Alkaline Phosphatase 103U/L (46-116) Total Protein 6.5g/dL (6.4-8.2) Albumin 3.6g/dL (3.4-5.0) Albumin/Globulin Ratio 1.2 (1.0-1.7) Lipase 57U/L (73-393) Stool Occult Blood Positive (NEG) Laboratory Tests Test 11/07/16 17:15 11/07/16 17:45 11/07/16 18:46 11/08/16 03:30 Urine Collection Type Unknown Urine Color Yellow Urine Clarity Clear Urine pH 6.5 Urine Specific [place] 1.010 Urine Protein Negativemg/dL (NEG-TRACE) Urine Glucose (UA) Negativemg/dL (NEG) Urine Ketones (Stick) Negativemg/dL (NEG) Urine Blood Negative (NEG) Urine Nitrite Negative (NEG) Urine Bilirubin Negative (NEG) Urine Urobilinogen Dipstick 0.2mg/dL (0.2 mg/dL) Urine Leukocyte Esterase Negative (NEG) Urine RBC 0/HPF (0-2) Urine WBC 1-4/HPF (0-4) Urine Squamous Epithelial Cells Few/LPF Urine Bacteria Few/HPF (0-FEW) Urine Opiates Screen Neg (NEG) Urine Methadone Screen Neg (NEG) Urine Barbiturates Neg (NEG) Urine Phencyclidine Screen Neg (NEG) Urine Amphetamine/Methamphetamine Neg (NEG) Urine Benzodiazepines Screen Neg (NEG) Urine Cocaine Screen Neg (NEG) Urine Cannabinoids Screen Pos (NEG) Urine Ethyl Alcohol Neg (NEG) White Blood Count 5.6x10^3/uL (4.0-11.0) 5.0x10^3/uL (4.0-11.0) Red Blood Count 3.28x10^6/uL (3.50-5.40) 2.97x10^6/uL (3.50-5.40) Hemoglobin 8.1g/dL (12.0-15.5) 7.3g/dL (12.0-15.5) Hematocrit 26.4% (36.0-47.0) 24.0% (36.0-47.0) Mean Corpuscular Volume 80fL (79-100) 81fL (79-100) Mean Corpuscular Hemoglobin 25pg (25-35) 25pg (25-35) Mean Corpuscular Hemoglobin Concent 31g/dL (31-37) 30g/dL (31-37) Red Cell Distribution Width 16.8% (11.5-14.5) 17.1% (11.5-14.5) Platelet Count 253x10^3/uL (140-400) 204x10^3/uL (140-400) Neutrophils (%) (Auto) 68% (31-73) 60% (31-73) Lymphocytes (%) (Auto) 18% (24-48) 27% (24-48) Monocytes (%) (Auto) 9% (0-9) 7% (0-9) Eosinophils (%) (Auto) 4% (0-3) 4% (0-3) Basophils (%) (Auto) 1% (0-3) 1% (0-3) Neutrophils # (Auto) 3.8x10^3uL (1.8-7.7) 3.0x10^3uL (1.8-7.7) Lymphocytes # (Auto) 1.0x10^3/uL (1.0-4.8) 1.4x10^3/uL (1.0-4.8) Monocytes # (Auto) 0.5x10^3/uL (0.0-1.1) 0.4x10^3/uL (0.0-1.1) Eosinophils # (Auto) 0.2x10^3/uL (0.0-0.7) 0.2x10^3/uL (0.0-0.7) Basophils # (Auto) 0.1x10^3/uL (0.0-0.2) 0.1x10^3/uL (0.0-0.2) Prothrombin Time 12.3SEC (11.7-14.0) Prothromb Time International Ratio 1.0 (0.8-1.1) Activated Partial Thromboplast Time 29SEC (24-38) Sodium Level 143mmol/L (136-145) 145mmol/L (136-145) Potassium Level 4.1mmol/L (3.5-5.1) 3.5mmol/L (3.5-5.1) Chloride Level 108mmol/L (98-107) 110mmol/L (98-107) Carbon Dioxide Level 25mmol/L (21-32) 29mmol/L (21-32) Anion Gap 10 (6-14) 6 (6-14) Blood Urea Nitrogen 15mg/dL (7-20) 13mg/dL (7-20) Creatinine 0.7mg/dL (0.6-1.0) 0.6mg/dL (0.6-1.0) Estimated GFR (Cockcroft-Gault) 92.2 110.2 BUN/Creatinine Ratio 21 (6-20) Glucose Level 100mg/dL (70-99) 91mg/dL (70-99) Calcium Level 8.4mg/dL (8.5-10.1) 8.1mg/dL (8.5-10.1) Total Bilirubin 0.1mg/dL (0.2-1.0) Aspartate Amino Transf (AST/SGOT) 17U/L (15-37) Alanine Aminotransferase (ALT/SGPT) 30U/L (14-59) Alkaline Phosphatase 103U/L (46-116) Total Protein 6.5g/dL (6.4-8.2) Albumin 3.6g/dL (3.4-5.0) Albumin/Globulin Ratio 1.2 (1.0-1.7) Lipase 57U/L (73-393) Stool Occult Blood Positive (NEG) VTE Prophylaxis Ordered VTE Prophylaxis Devices: Contraindicated VTE Pharmacological Prophylaxi: Contraindicated CURT COOL MD Nov 08, 2016 14:23
[2016-11-08] MEDS ORDERED: ONDANSETRON PF 4 MG/2 ML VIAL. IV PRN (14:30)
[2016-11-08] MEDS ORDERED: hydrALAZINE 20 MG/ML VIAL. IVP PRN (14:30)
[2016-11-08] MEDS ORDERED: ACETAMINOPHEN 325 MG TABLET. PO PRN (14:30)
[2016-11-08] MEDS ORDERED: ALBUTEROL SULFATE 2.5 MG/3 ML NEBU. NEB PRN (14:30)
[2016-11-08] MEDS ORDERED: FENTANYL PF 100 MCG/2 ML VIAL. IV PRN (14:45)
[2016-11-08] MEDS: DIVALPROEX DELAYED RELEASE 500 MG TABLET.DR. PO SCH ×2 (15:00→21:49)
[2016-11-08] MEDS: HYDROCODONE/APAP 5/325MG TABLET. PO PRN (15:13)
[2016-11-08] MEDS: SUCRALFATE 1 GM TABLET. PO SCH ×2 (16:30→21:50)
[2016-11-08] MEDS ORDERED: PANTOPRAZOLE 40 MG TABLET.DR. PO SCH (16:30)
--- NOTE | 2016-11-08 16:52 | RAD ---
Radionuclide GI bleeding scan, 11/08/2016: History: Recent GI bleed The study was performed utilizing 33 mCi of technetium 99m and a labeled red blood cell technique. Imaging obtained out to one hour shows no abnormal accumulation of activity in the GI tract to suggest active GI tract bleeding. IMPRESSION: Negative radionuclide GI bleeding scan.
[2016-11-08 17:29] LABS: HEMATOCRIT 25.3 % (36.0-47.0); RED BLOOD COUNT 3.2 x10^6/uL (3.50-5.40); RED CELL DISTRIBUTION WIDTH 16.9 % (11.5-14.5); WHITE BLOOD COUNT 4.7 x10^3/uL (4.0-11.0)
--- NOTE | 2016-11-08 18:37 | HP ---
ADMIT DATE: 11/08/2016 CHIEF COMPLAINT: Abdominal pain and tarry black stool. HISTORY OF PRESENT ILLNESS: A 41-year-old female patient with several comorbid conditions, mostly gastrointestinal related such as GERD, previous gastric bypass surgeries with ulcers, diverticulosis and chronic abdominal pain presented to the ER with complaints of left lower quadrant abdominal pain for a few days associated nausea, vomiting and some bloody stools. Given her prior history of GI complaints, initial workup in the ER showed the patient's hemoglobin is 8.1 with MCV is 80 and fecal occult blood test was positive. The patient was admitted to the hospital for Gastroenterology consultation and further workup for suspected upper GI bleeding. At the time of examination, the patient already had EGD, which appears to be reportedly normal and no acute new diagnosis found. The patient still complains of left lower quadrant abdominal pain with some headaches. PAST MEDICAL HISTORY: Depression, GERD, gastric ulcer, cholecystectomy, appendectomy, gastric bypass surgery, hiatal hernia surgery, ovarian cyst, 3 laparoscopic surgeries and 2 PEG tubes. PERSONAL HISTORY: No smoking, no alcohol, occasionally takes marijuana. FAMILY HISTORY: Unknown to the patient. REVIEW OF SYSTEMS: Please see my electronic H and P. PHYSICAL EXAMINATION: Please see my electronic H and P. LABORATORY FINDINGS: Fecal occult test positive. CBC: Hemoglobin is 8.1, MCV is 80 and MCHC is 31, platelets 253. Chemistry: Sodium 143, potassium is 4.1, chloride is 108, anion gap 10, BUN is 15, creatinine 0.7, glucose 100, calcium is 8.4. Lipase is 81. Toxicology positive for cannabinoids. ____ negative. Coagulation panel: PT/INR within normal limits. IMAGING STUDIES: CT abdomen and pelvis with contrast showed mild pelvic and left adnexal free fluid. ASSESSMENT AND PLAN: 1. Abdominal pain and suspected upper gastrointestinal bleeding. 2. Prior history of gastric bypass surgeries with anastomotic ulcers. 3. Anemia, based on hemoglobin ____ suspected acute blood loss anemia. PLAN: 1. She has been admitted to the hospital for further workup. She has EGD this morning. I will continue Protonix IV for now and consult Gastroenterology. 2. IV hydration at 125 mL per hour, n.p.o. 3. Pain control with fentanyl 25 mcg q. 2 hours. 4. Home medications reviewed and reconciled. 5. Monitor hemoglobin q. 6 hours. 6. Two units of PRBC has been ordered. If hemoglobin drops less than 7, we will transfuse blood. 7. Gastroenterology is considering nuclear medicine scan to rule out any bleeding. 8. No DVT prophylaxis. 9. Prognosis is guarded. 10. Plan explained to the patient. CURT COOL MD DR: COLLETTE/rina JOB#: [id number] / [id number]
[2016-11-08 19:15] VITALS: BP 136/62
[2016-11-08] MEDS: ZOLPIDEM 5 MG TABLET. PO PRN ×2 (21:49→22:28)
[2016-11-08] MEDS: SERTRALINE 50 MG TABLET. PO SCH (21:50)
[2016-11-08] MEDS: OLANZAPINE 5 MG TABLET. PO SCH (21:50)
[2016-11-08] MEDS: PANTOPRAZOLE IV PUSH 40 MG VIAL. IVP SCH (21:50)
[2016-11-08 23:15] VITALS: BP 107/58
[2016-11-09] VITALS (7 sets, daily range): BP systolic 87–122; BP diastolic 48–80
[2016-11-09] MEDS: FENTANYL PF 100 MCG/2 ML VIAL. IV PRN ×5 (04:05→22:13)
[2016-11-09] MEDS: ONDANSETRON ODT 4 MG TAB.RAPDIS. PO PRN ×2 (04:05→13:10)
[2016-11-09 05:28] LABS: BASO # 0.1 x10^3/uL (0.0-0.2); BASO % 2 % (0-3); EOS % 5 % (0-3); HEMATOCRIT 26.7 % (36.0-47.0); HEMOGLOBIN 8.2 g/dL (12.0-15.5); LYMPH # 1.3 x10^3/uL (1.0-4.8); LYMPH % 32 % (24-48); MEAN CORPUSCULAR HEMOGLOBIN 25 pg (25-35); MEAN CORPUSCULAR HGB CONC 31 g/dL (31-37); MEAN CORPUSCULAR VOLUME 82 fL (79-100); MONO % 9 % (0-9); NEUT % 53 % (31-73); PLATELET COUNT 202 x10^3/uL (140-400); RED BLOOD COUNT 3.27 x10^6/uL (3.50-5.40); RED CELL DISTRIBUTION WIDTH 17.3 % (11.5-14.5); WHITE BLOOD COUNT 3.9 x10^3/uL (4.0-11.0)
[2016-11-09 05:45] LABS: CALCIUM 8.5 mg/dL (8.5-10.1); CREATININE 0.6 mg/dL (0.6-1.0); GFR 110.2; POTASSIUM 4.2 mmol/L (3.5-5.1)
[2016-11-09] MEDS: SUCRALFATE 1 GM TABLET. PO SCH ×4 (07:30→21:00)
[2016-11-09] MEDS: PANTOPRAZOLE IV PUSH 40 MG VIAL. IVP SCH ×2 (08:24→22:15)
[2016-11-09] MEDS: DIVALPROEX DELAYED RELEASE 500 MG TABLET.DR. PO SCH ×2 (08:25→22:13)
--- NOTE | 2016-11-09 10:25 | ACF ---
Admit Criteria Forms Admit Criteria Forms Admit Criteria Forms ABDOMINAL PAIN Clinical Indications for Admission to Inpatient Care (Place 'X' for any and all applicable criteria): Admission is indicated for ANY ONE of the following(1)(2)(3)(4)(5): [ ]I. Inpatient admission required rather than observation care (Also use Abdominal Pain: Observation Care, as appropriate) because of ANY ONE of the following: [ ]a) Severe pain requiring acute inpatient management [ ]b) Identification of etiology/finding that requires inpatient care (eg, aortic dissection, free air) [ ]c) Absent bowel sounds with complete ileus(6) [ ]d) Suspected toxic megacolon [ ]e) Severe electrolyte abnormalities requiring inpatient care [ ]f) High fever or infection requiring inpatient admission as indicated by ANY ONE of following(7)(8): [ ] i) Appropriate outpatient or observational care antimicrobial treatment unavailable, not effective, or not feasible [ ] ii) Documented bacteremia [ ] iii) Temperature > 104.9 degrees F (oral) [ ] iv) T >103.1 F (oral) or < 96.8 F(rectal) that does not respond to all emergency treatment measures [ ]g) Signs of intestinal obstruction [B] [ ]h) Hemodynamic instability [ ]i) IV fluid to replace significant ongoing losses (greater than 3 L/m2 per day) (12)(13) [ ]j) Percutaneous or open drainage (eg, abscess, biliary tract ) procedures [ ]k) Parenteral nutrition regimen that must be implemented on inpatient basis [ ]l) Other condition,treatment or monitoring requiring inpatient admission. [ ]II. Peritoneal signs present [X]III. Surgery needed that cannot be performed on an ambulatory basis. [ ]IV. Evaluation requires patient to not eat or drink for extended period ( eg, more than 24 hours). [ ]V. Contraindications and/or Inappropriate clinical situations for Observational Care in patients with abdominal pain, when ANY ONE of the following is required: [ ]a) Thorough evaluation is required to prevent catastrophic events due to delays in diagnosing (e.g.Mesenteric ischemia) 1,3 [ ]b) Patient with severe pathology or with chronic symptoms unlikely to improve in the ED stay (3) [ ]. General contraindications and/or Inappropriate clinical situations for Observational Care in patients with abdominal pain, when ANY ONE of the following is required: [ ]a) Prediction of prolongation of LOS based on ANY ONE of the following may be considered as a contraindication for observational care 2, 3, 4, 5, 6, 7, 8, 9, 10, 11 [ ]i) Age > 65 yrs. [ ]ii) Patient arriving by ambulance [ ]iii) Patient with high acuity [ ]iv) Patient requiring vital sign monitoring [ ]v) Patient on IV medication [ ]b) Systolic blood pressures 180mmHg 3,12 [ ]c) Patient with altered mental status including delirium and other alteration of consciousness, (3) [ ]d) Patient whose discharge disposition will be to a [facility] home or rehabilitation home should not be managed in Emergency Department Observation Unit. CMS rule requires 3 days hospital stay before such placement.3,13 [ ]e) Patient with failure to thrive due to broad array of etiologies 3,16,17 [ ]f) Inability to ambulate 3,14 Extended stay beyond goal length of stay may be needed for(2)(3): [ ]a) Persistent abdominal pain with suspected intra-abdominal process [ ]b) Diagnosed condition requiring continued stay (e.g., pancreatitis, complicated diverticulitis) [ ]c) Surgery (e.g., colectomy) The original [employer] content created by [employer] has been revised. The portions of the content which have been revised are identified through the use of italic text or in bold, and [facility] has neither reviewed nor approved the modified material.All other unmodified content is copyright [employer]. Please see references footnoted in the original [employer] [facility] edition 2016 GEOFF NICHOLS Nov 09, 2016 10:24
--- NOTE | 2016-11-09 11:48 | PDOC2 ---
CONSULT Date of Consult Date of Consult DATE: 11/08/16 TIME: 11:47 Current Problem List Problem List Problems Medical Problems: (1) Abdominal pain Status: Acute (2) GI (gastrointestinal bleed) Status: Acute (3) Lower GI bleeding Status: Acute Current Medications Current Medications Current Medications Fentanyl Citrate 50 mcg 50 mcg PRN Q15MIN PRN IV PAIN GREATER THAN 3/10 Last administered on 11/07/16 21:11; Start 11/07/16 at 18:00; Stop 11/07/16 at 22:51 ; Status DC Sodium Chloride (Iv Sodium Chloride 0.9% 1000ml Bag) 1,000 ml @ 1,000 mls/hr Q1H IV Last administered on 11/07/16 18:14; Start 11/07/16 at 17:51; Stop at 18:50; Status DC Ondansetron HCl (Zofran) 4 mg 1X ONCE IV Last administered on 11/07/16 18:15 ; Start 11/07/16 at 18:00; Stop 11/07/16 at 18:01; Status DC Iohexol (Omnipaque 300 Mg/ml) 75 ml 1X ONCE IV Last administered on 11/07/16 18:59; Start 11/07/16 at 18:30; Stop 11/07/16 at 18:31; Status DC Ondansetron HCl (Zofran) 4 mg PRN Q8HRS PRN IV NAUSEA/VOMITING Last administered on 11/08/16 12:28; Start 11/07/16 at 20:45; Stop 11/08/16 at 20:44 ; Status DC Fentanyl Citrate 50 mcg 50 mcg PRN Q1HR PRN IV PAIN; Start 11/07/16 at 20:45; Stop 11/07/16 at 22:51; Status DC Sodium Chloride (Iv Sodium Chloride 0.9% 1000ml Bag) 1,000 ml @ 125 mls/hr Q8H IV Last administered on 11/08/16 13:35; Start 11/07/16 at 20:34; Stop at 20:33; Status DC Acetaminophen (Tylenol) 650 mg PRN Q4HRS PRN PO FEVER; Start 11/07/16 at 20:45 ; Stop 11/08/16 at 20:44; Status DC Fentanyl Citrate 75 mcg 75 mcg PRN Q1HR PRN IV SEVERE PAIN Last administered on 11/08/16 13:36; Start 11/07/16 at 23:00; Stop 11/08/16 at 14:44; Status DC Lactated Ringer's (Iv Lactated Ringers) 1,000 ml @ 0 mls/hr Q0M IV Last administered on 11/08/16 10:40; Start 11/08/16 at 10:45 Fentanyl Citrate 100 mcg 100 mcg STK-MED ONCE .ROUTE ; Start 11/08/16 at 11:22; Stop 11/08/16 at 11:23; Status DC Propofol (Diprivan) 20 ml @ As Directed STK-MED ONCE IV ; Start 11/08/16 at 11: 22; Stop 11/08/16 at 11:23; Status DC Lidocaine HCl 5 ml 5 ml STK-MED ONCE .ROUTE ; Start 11/08/16 at 11:22; Stop at 11:23; Status DC Propofol (Diprivan) 20 ml @ As Directed STK-MED ONCE IV ; Start 11/08/16 at 11: 37; Stop 11/08/16 at 11:38; Status DC Acetaminophen (Tylenol) 325 mg PRN Q6HRS PRN PO MILD PAIN / TEMP; Start at 14:30 Hydralazine HCl (Apresoline) 10 mg PRN Q4HRS PRN IVP ELEVATED BP, SEE COMMENTS ; Start 11/08/16 at 14:30 Ondansetron HCl (Zofran) 4 mg PRN Q8HRS PRN IV NAUSEA/VOMITING; Start 11/08/16 at 14:30; Stop 11/08/16 at 15:32; Status DC Albuterol Sulfate (Ventolin Neb Soln) 2.5 mg PRN Q4HRS PRN NEB SHORTNESS OF BREATH; Start 11/08/16 at 14:30 Divalproex Sodium (Depakote) 500 mg BID PO Last administered on 11/09/16 08:25 ; Start 11/08/16 at 15:00 Acetaminophen/ Hydrocodone Bitart (Lortab 5/325) 1 tab PRN Q6HRS PRN PO PAIN Last administered on 11/08/16 15:13; Start 11/08/16 at 14:30 Pantoprazole Sodium (Protonix) 40 mg BIDAC PO ; Start 11/08/16 at 16:30; Status UNV Sertraline HCl (Zoloft) 50 mg HS PO Last administered on 11/08/16 21:50; Start 11/08/16 at 21:00 Sucralfate (Carafate) 1 gm QIDACHS PO Last administered on 11/08/16 21:50; Start 11/08/16 at 16:30 Olanzapine (Zyprexa) 10 mg QHS PO Last administered on 11/08/16 21:50; Start 11/08/16 at 21:00 Ondansetron HCl (Zofran Odt) 4 mg PRN Q6HRS PRN PO NAUSEA Last administered on 11/09/16 04:05; Start 11/08/16 at 14:45 Zolpidem Tartrate (Ambien) 5 mg PRN QHS PRN PO INSOMNIA Last administered on 22:28; Start 11/08/16 at 15:00 Pantoprazole Sodium (Protonix Vial) 40 mg BID IVP Last administered on 08:24; Start 11/08/16 at 21:00 Fentanyl Citrate (Fentanyl 2ml Vial) 25 mcg PRN Q4HRS PRN IV PAIN; Start at 14:45; Stop 11/08/16 at 15:03; Status DC Fentanyl Citrate (Fentanyl 2ml Vial) 25 mcg PRN Q4HRS PRN IV PAIN Last administered on 11/09/16 08:28; Start 11/08/16 at 15:03 Active Scripts Active Lortab 5-325 mg Tablet (Hydrocodone/Acetaminophen) 1 Each Tablet 1 Tab PO PRN Q6HRS PRN Anaspaz (Hyoscyamine Sulfate) 0.125 Mg Tab.rapdis 0.125 Mg PO PRN Q4HRS PRN Protonix (Pantoprazole Sodium) 40 Mg Tablet 40 Mg PO BIDAC Carafate (Sucralfate) 1 Gm Tablet 1 Gm PO QID Reported Ambien (Zolpidem Tartrate) 10 Mg Tablet 1 Tab PO QHS Depakote (Divalproex Sodium) 500 Mg Tablet.dr 1 Tab PO BID Zyprexa (Olanzapine) 10 Mg Tablet 1 Tab PO QHS Zoloft (Sertraline Hcl) 50 Mg Tablet 1 Tab PO HS Zofran (Ondansetron Hcl) 4 Mg Tablet 1 Tab PO PRN Q6HRS PRN Omeprazole 40 Mg Capsule. 1 Cap PO BID Allergies Allergies: Coded Allergies: diphenhydramine (Verified Allergy, Severe, hallucinations/ams, 11/08/16) promethazine (Verified Allergy, Severe, confusion/ams, 11/08/16) sumatriptan (Verified Allergy, Severe, ANAPHYLAXIS, 11/08/16) haloperidol (Unverified Allergy, Intermediate, 11/08/16) morphine (Verified Allergy, Intermediate, HIVES, 06/07/14) NSAIDS (Non-Steroidal Anti-Inflamma (Verified Adverse Reaction, Severe, bleeding., 06/04/14) pt has ulcer hx, hx bleeding problems metoclopramide (Verified Adverse Reaction, Mild, 11/07/16) prochlorperazine (Verified Adverse Reaction, Mild, 11/07/16) Vitals VITALS Vital Signs Date Time Temp Pulse Resp B/P Pulse Ox O2 Delivery O2 Flow Rate FiO2 11/09/16 10:54 97.6 60 16 91/48 97 Room Air 97.6 Labs Labs Laboratory Tests Test 11/07/16 17:15 11/07/16 17:45 11/07/16 18:46 11/08/16 03:30 Urine Collection Type Unknown Urine Color Yellow Urine Clarity Clear Urine pH 6.5 Urine Specific [place] 1.010 Urine Protein Negativemg/dL (NEG-TRACE) Urine Glucose (UA) Negativemg/dL (NEG) Urine Ketones (Stick) Negativemg/dL (NEG) Urine Blood Negative (NEG) Urine Nitrite Negative (NEG) Urine Bilirubin Negative (NEG) Urine Urobilinogen Dipstick 0.2mg/dL (0.2 mg/dL) Urine Leukocyte Esterase Negative (NEG) Urine RBC 0/HPF (0-2) Urine WBC 1-4/HPF (0-4) Urine Squamous Epithelial Cells Few/LPF Urine Bacteria Few/HPF (0-FEW) Urine Opiates Screen Neg (NEG) Urine Methadone Screen Neg (NEG) Urine Barbiturates Neg (NEG) Urine Phencyclidine Screen Neg (NEG) Urine Amphetamine/Methamphetamine Neg (NEG) Urine Benzodiazepines Screen Neg (NEG) Urine Cocaine Screen Neg (NEG) Urine Cannabinoids Screen Pos (NEG) Urine Ethyl Alcohol Neg (NEG) White Blood Count 5.6x10^3/uL (4.0-11.0) 5.0x10^3/uL (4.0-11.0) Red Blood Count 3.28x10^6/uL (3.50-5.40) 2.97x10^6/uL (3.50-5.40) Hemoglobin 8.1g/dL (12.0-15.5) 7.3g/dL (12.0-15.5) Hematocrit 26.4% (36.0-47.0) 24.0% (36.0-47.0) Mean Corpuscular Volume 80fL (79-100) 81fL (79-100) Mean Corpuscular Hemoglobin 25pg (25-35) 25pg (25-35) Mean Corpuscular Hemoglobin Concent 31g/dL (31-37) 30g/dL (31-37) Red Cell Distribution Width 16.8% (11.5-14.5) 17.1% (11.5-14.5) Platelet Count 253x10^3/uL (140-400) 204x10^3/uL (140-400) Neutrophils (%) (Auto) 68% (31-73) 60% (31-73) Lymphocytes (%) (Auto) 18% (24-48) 27% (24-48) Monocytes (%) (Auto) 9% (0-9) 7% (0-9) Eosinophils (%) (Auto) 4% (0-3) 4% (0-3) Basophils (%) (Auto) 1% (0-3) 1% (0-3) Neutrophils # (Auto) 3.8x10^3uL (1.8-7.7) 3.0x10^3uL (1.8-7.7) Lymphocytes # (Auto) 1.0x10^3/uL (1.0-4.8) 1.4x10^3/uL (1.0-4.8) Monocytes # (Auto) 0.5x10^3/uL (0.0-1.1) 0.4x10^3/uL (0.0-1.1) Eosinophils # (Auto) 0.2x10^3/uL (0.0-0.7) 0.2x10^3/uL (0.0-0.7) Basophils # (Auto) 0.1x10^3/uL (0.0-0.2) 0.1x10^3/uL (0.0-0.2) Prothrombin Time 12.3SEC (11.7-14.0) Prothromb Time International Ratio 1.0 (0.8-1.1) Activated Partial Thromboplast Time 29SEC (24-38) Sodium Level 143mmol/L (136-145) 145mmol/L (136-145) Potassium Level 4.1mmol/L (3.5-5.1) 3.5mmol/L (3.5-5.1) Chloride Level 108mmol/L (98-107) 110mmol/L (98-107) Carbon Dioxide Level 25mmol/L (21-32) 29mmol/L (21-32) Anion Gap 10 (6-14) 6 (6-14) Blood Urea Nitrogen 15mg/dL (7-20) 13mg/dL (7-20) Creatinine 0.7mg/dL (0.6-1.0) 0.6mg/dL (0.6-1.0) Estimated GFR (Cockcroft-Gault) 92.2 110.2 BUN/Creatinine Ratio 21 (6-20) Glucose Level 100mg/dL (70-99) 91mg/dL (70-99) Calcium Level 8.4mg/dL (8.5-10.1) 8.1mg/dL (8.5-10.1) Total Bilirubin 0.1mg/dL (0.2-1.0) Aspartate Amino Transf (AST/SGOT) 17U/L (15-37) Alanine Aminotransferase (ALT/SGPT) 30U/L (14-59) Alkaline Phosphatase 103U/L (46-116) Total Protein 6.5g/dL (6.4-8.2) Albumin 3.6g/dL (3.4-5.0) Albumin/Globulin Ratio 1.2 (1.0-1.7) Lipase 57U/L (73-393) Stool Occult Blood Positive (NEG) Test 11/08/16 17:10 11/09/16 03:55 White Blood Count 4.7x10^3/uL (4.0-11.0) 3.9x10^3/uL (4.0-11.0) Red Blood Count 3.20x10^6/uL (3.50-5.40) 3.27x10^6/uL (3.50-5.40) Hemoglobin 8.0g/dL (12.0-15.5) 8.2g/dL (12.0-15.5) Hematocrit 25.3% (36.0-47.0) 26.7% (36.0-47.0) Mean Corpuscular Volume 79fL (79-100) 82fL (79-100) Mean Corpuscular Hemoglobin 25pg (25-35) 25pg (25-35) Mean Corpuscular Hemoglobin Concent 32g/dL (31-37) 31g/dL (31-37) Red Cell Distribution Width 16.9% (11.5-14.5) 17.3% (11.5-14.5) Platelet Count 218x10^3/uL (140-400) 202x10^3/uL (140-400) Neutrophils (%) (Auto) 53% (31-73) Lymphocytes (%) (Auto) 32% (24-48) Monocytes (%) (Auto) 9% (0-9) Eosinophils (%) (Auto) 5% (0-3) Basophils (%) (Auto) 2% (0-3) Neutrophils # (Auto) 2.1x10^3uL (1.8-7.7) Lymphocytes # (Auto) 1.3x10^3/uL (1.0-4.8) Monocytes # (Auto) 0.4x10^3/uL (0.0-1.1) Eosinophils # (Auto) 0.2x10^3/uL (0.0-0.7) Basophils # (Auto) 0.1x10^3/uL (0.0-0.2) Sodium Level 145mmol/L (136-145) Potassium Level 4.2mmol/L (3.5-5.1) Chloride Level 109mmol/L (98-107) Carbon Dioxide Level 28mmol/L (21-32) Anion Gap 8 (6-14) Blood Urea Nitrogen 8mg/dL (7-20) Creatinine 0.6mg/dL (0.6-1.0) Estimated GFR (Cockcroft-Gault) 110.2 Glucose Level 80mg/dL (70-99) Calcium Level 8.5mg/dL (8.5-10.1) Laboratory Tests Test 11/08/16 17:10 11/09/16 03:55 White Blood Count 4.7x10^3/uL (4.0-11.0) 3.9x10^3/uL (4.0-11.0) Red Blood Count 3.20x10^6/uL (3.50-5.40) 3.27x10^6/uL (3.50-5.40) Hemoglobin 8.0g/dL (12.0-15.5) 8.2g/dL (12.0-15.5) Hematocrit 25.3% (36.0-47.0) 26.7% (36.0-47.0) Mean Corpuscular Volume 79fL (79-100) 82fL (79-100) Mean Corpuscular Hemoglobin 25pg (25-35) 25pg (25-35) Mean Corpuscular Hemoglobin Concent 32g/dL (31-37) 31g/dL (31-37) Red Cell Distribution Width 16.9% (11.5-14.5) 17.3% (11.5-14.5) Platelet Count 218x10^3/uL (140-400) 202x10^3/uL (140-400) Neutrophils (%) (Auto) 53% (31-73) Lymphocytes (%) (Auto) 32% (24-48) Monocytes (%) (Auto) 9% (0-9) Eosinophils (%) (Auto) 5% (0-3) Basophils (%) (Auto) 2% (0-3) Neutrophils # (Auto) 2.1x10^3uL (1.8-7.7) Lymphocytes # (Auto) 1.3x10^3/uL (1.0-4.8) Monocytes # (Auto) 0.4x10^3/uL (0.0-1.1) Eosinophils # (Auto) 0.2x10^3/uL (0.0-0.7) Basophils # (Auto) 0.1x10^3/uL (0.0-0.2) Sodium Level 145mmol/L (136-145) Potassium Level 4.2mmol/L (3.5-5.1) Chloride Level 109mmol/L (98-107) Carbon Dioxide Level 28mmol/L (21-32) Anion Gap 8 (6-14) Blood Urea Nitrogen 8mg/dL (7-20) Creatinine 0.6mg/dL (0.6-1.0) Estimated GFR (Cockcroft-Gault) 110.2 Glucose Level 80mg/dL (70-99) Calcium Level 8.5mg/dL (8.5-10.1) Assessment/Plan Assessment/Plan FND Wk # [id number] no acute surgical recs Thanks for consult WILLIE MEDINA MD Nov 09, 2016 11:48
[2016-11-09] MEDS: HYDROCODONE/APAP 5/325MG TABLET. PO PRN ×2 (11:54→19:15)
--- NOTE | 2016-11-09 12:21 | PDOC ---
PROGRESS NOTES Chief Complaint Chief Complaint cc: gi bleeding A/P 1. Abdominal pain and suspected upper gastrointestinal bleeding, S/P EGD, non- erosive gastritis: Monitor hemoglobin, negative nuclear medicine scan for bleeding. clear liquid diet, follow GI recommendations. 2. Prior history of gastric bypass surgeries with anastomotic ulcers. 3. Anxiety /Depression, Stable 4. Intractable nausea: on Zofran prn Vitals Vitals Vital Signs Date Time Temp Pulse Resp B/P Pulse Ox O2 Delivery O2 Flow Rate FiO2 11/09/16 11:54 16 99 Room Air 11/09/16 11:49 98.5 68 100/62 98.5 Physical Exam General: Alert, Oriented X3 Heart: Normal S1, Normal S2 Lungs: Clear Abdomen: Normal bowel sounds Labs LABS Laboratory Tests Test 11/08/16 17:10 11/09/16 03:55 White Blood Count 4.7x10^3/uL (4.0-11.0) 3.9x10^3/uL (4.0-11.0) Red Blood Count 3.20x10^6/uL (3.50-5.40) 3.27x10^6/uL (3.50-5.40) Hemoglobin 8.0g/dL (12.0-15.5) 8.2g/dL (12.0-15.5) Hematocrit 25.3% (36.0-47.0) 26.7% (36.0-47.0) Mean Corpuscular Volume 79fL (79-100) 82fL (79-100) Mean Corpuscular Hemoglobin 25pg (25-35) 25pg (25-35) Mean Corpuscular Hemoglobin Concent 32g/dL (31-37) 31g/dL (31-37) Red Cell Distribution Width 16.9% (11.5-14.5) 17.3% (11.5-14.5) Platelet Count 218x10^3/uL (140-400) 202x10^3/uL (140-400) Neutrophils (%) (Auto) 53% (31-73) Lymphocytes (%) (Auto) 32% (24-48) Monocytes (%) (Auto) 9% (0-9) Eosinophils (%) (Auto) 5% (0-3) Basophils (%) (Auto) 2% (0-3) Neutrophils # (Auto) 2.1x10^3uL (1.8-7.7) Lymphocytes # (Auto) 1.3x10^3/uL (1.0-4.8) Monocytes # (Auto) 0.4x10^3/uL (0.0-1.1) Eosinophils # (Auto) 0.2x10^3/uL (0.0-0.7) Basophils # (Auto) 0.1x10^3/uL (0.0-0.2) Sodium Level 145mmol/L (136-145) Potassium Level 4.2mmol/L (3.5-5.1) Chloride Level 109mmol/L (98-107) Carbon Dioxide Level 28mmol/L (21-32) Anion Gap 8 (6-14) Blood Urea Nitrogen 8mg/dL (7-20) Creatinine 0.6mg/dL (0.6-1.0) Estimated GFR (Cockcroft-Gault) 110.2 Glucose Level 80mg/dL (70-99) Calcium Level 8.5mg/dL (8.5-10.1) Assessment and Plan Assessmemt and Plan Problems Medical Problems: (1) Abdominal pain Status: Acute (2) GI (gastrointestinal bleed) Status: Acute (3) Lower GI bleeding Status: Acute Problems: Comment Review of Relevant I have reviewed the following items fredo (where applicable) has been applied. Labs Laboratory Tests Test 11/07/16 17:15 11/07/16 17:45 11/07/16 18:46 11/08/16 03:30 Urine Collection Type Unknown Urine Color Yellow Urine Clarity Clear Urine pH 6.5 Urine Specific [place] 1.010 Urine Protein Negativemg/dL (NEG-TRACE) Urine Glucose (UA) Negativemg/dL (NEG) Urine Ketones (Stick) Negativemg/dL (NEG) Urine Blood Negative (NEG) Urine Nitrite Negative (NEG) Urine Bilirubin Negative (NEG) Urine Urobilinogen Dipstick 0.2mg/dL (0.2 mg/dL) Urine Leukocyte Esterase Negative (NEG) Urine RBC 0/HPF (0-2) Urine WBC 1-4/HPF (0-4) Urine Squamous Epithelial Cells Few/LPF Urine Bacteria Few/HPF (0-FEW) Urine Opiates Screen Neg (NEG) Urine Methadone Screen Neg (NEG) Urine Barbiturates Neg (NEG) Urine Phencyclidine Screen Neg (NEG) Urine Amphetamine/Methamphetamine Neg (NEG) Urine Benzodiazepines Screen Neg (NEG) Urine Cocaine Screen Neg (NEG) Urine Cannabinoids Screen Pos (NEG) Urine Ethyl Alcohol Neg (NEG) White Blood Count 5.6x10^3/uL (4.0-11.0) 5.0x10^3/uL (4.0-11.0) Red Blood Count 3.28x10^6/uL (3.50-5.40) 2.97x10^6/uL (3.50-5.40) Hemoglobin 8.1g/dL (12.0-15.5) 7.3g/dL (12.0-15.5) Hematocrit 26.4% (36.0-47.0) 24.0% (36.0-47.0) Mean Corpuscular Volume 80fL (79-100) 81fL (79-100) Mean Corpuscular Hemoglobin 25pg (25-35) 25pg (25-35) Mean Corpuscular Hemoglobin Concent 31g/dL (31-37) 30g/dL (31-37) Red Cell Distribution Width 16.8% (11.5-14.5) 17.1% (11.5-14.5) Platelet Count 253x10^3/uL (140-400) 204x10^3/uL (140-400) Neutrophils (%) (Auto) 68% (31-73) 60% (31-73) Lymphocytes (%) (Auto) 18% (24-48) 27% (24-48) Monocytes (%) (Auto) 9% (0-9) 7% (0-9) Eosinophils (%) (Auto) 4% (0-3) 4% (0-3) Basophils (%) (Auto) 1% (0-3) 1% (0-3) Neutrophils # (Auto) 3.8x10^3uL (1.8-7.7) 3.0x10^3uL (1.8-7.7) Lymphocytes # (Auto) 1.0x10^3/uL (1.0-4.8) 1.4x10^3/uL (1.0-4.8) Monocytes # (Auto) 0.5x10^3/uL (0.0-1.1) 0.4x10^3/uL (0.0-1.1) Eosinophils # (Auto) 0.2x10^3/uL (0.0-0.7) 0.2x10^3/uL (0.0-0.7) Basophils # (Auto) 0.1x10^3/uL (0.0-0.2) 0.1x10^3/uL (0.0-0.2) Prothrombin Time 12.3SEC (11.7-14.0) Prothromb Time International Ratio 1.0 (0.8-1.1) Activated Partial Thromboplast Time 29SEC (24-38) Sodium Level 143mmol/L (136-145) 145mmol/L (136-145) Potassium Level 4.1mmol/L (3.5-5.1) 3.5mmol/L (3.5-5.1) Chloride Level 108mmol/L (98-107) 110mmol/L (98-107) Carbon Dioxide Level 25mmol/L (21-32) 29mmol/L (21-32) Anion Gap 10 (6-14) 6 (6-14) Blood Urea Nitrogen 15mg/dL (7-20) 13mg/dL (7-20) Creatinine 0.7mg/dL (0.6-1.0) 0.6mg/dL (0.6-1.0) Estimated GFR (Cockcroft-Gault) 92.2 110.2 BUN/Creatinine Ratio 21 (6-20) Glucose Level 100mg/dL (70-99) 91mg/dL (70-99) Calcium Level 8.4mg/dL (8.5-10.1) 8.1mg/dL (8.5-10.1) Total Bilirubin 0.1mg/dL (0.2-1.0) Aspartate Amino Transf (AST/SGOT) 17U/L (15-37) Alanine Aminotransferase (ALT/SGPT) 30U/L (14-59) Alkaline Phosphatase 103U/L (46-116) Total Protein 6.5g/dL (6.4-8.2) Albumin 3.6g/dL (3.4-5.0) Albumin/Globulin Ratio 1.2 (1.0-1.7) Lipase 57U/L (73-393) Stool Occult Blood Positive (NEG) Test 11/08/16 17:10 11/09/16 03:55 White Blood Count 4.7x10^3/uL (4.0-11.0) 3.9x10^3/uL (4.0-11.0) Red Blood Count 3.20x10^6/uL (3.50-5.40) 3.27x10^6/uL (3.50-5.40) Hemoglobin 8.0g/dL (12.0-15.5) 8.2g/dL (12.0-15.5) Hematocrit 25.3% (36.0-47.0) 26.7% (36.0-47.0) Mean Corpuscular Volume 79fL (79-100) 82fL (79-100) Mean Corpuscular Hemoglobin 25pg (25-35) 25pg (25-35) Mean Corpuscular Hemoglobin Concent 32g/dL (31-37) 31g/dL (31-37) Red Cell Distribution Width 16.9% (11.5-14.5) 17.3% (11.5-14.5) Platelet Count 218x10^3/uL (140-400) 202x10^3/uL (140-400) Neutrophils (%) (Auto) 53% (31-73) Lymphocytes (%) (Auto) 32% (24-48) Monocytes (%) (Auto) 9% (0-9) Eosinophils (%) (Auto) 5% (0-3) Basophils (%) (Auto) 2% (0-3) Neutrophils # (Auto) 2.1x10^3uL (1.8-7.7) Lymphocytes # (Auto) 1.3x10^3/uL (1.0-4.8) Monocytes # (Auto) 0.4x10^3/uL (0.0-1.1) Eosinophils # (Auto) 0.2x10^3/uL (0.0-0.7) Basophils # (Auto) 0.1x10^3/uL (0.0-0.2) Sodium Level 145mmol/L (136-145) Potassium Level 4.2mmol/L (3.5-5.1) Chloride Level 109mmol/L (98-107) Carbon Dioxide Level 28mmol/L (21-32) Anion Gap 8 (6-14) Blood Urea Nitrogen 8mg/dL (7-20) Creatinine 0.6mg/dL (0.6-1.0) Estimated GFR (Cockcroft-Gault) 110.2 Glucose Level 80mg/dL (70-99) Calcium Level 8.5mg/dL (8.5-10.1) Laboratory Tests Test 11/08/16 17:10 11/09/16 03:55 White Blood Count 4.7x10^3/uL (4.0-11.0) 3.9x10^3/uL (4.0-11.0) Red Blood Count 3.20x10^6/uL (3.50-5.40) 3.27x10^6/uL (3.50-5.40) Hemoglobin 8.0g/dL (12.0-15.5) 8.2g/dL (12.0-15.5) Hematocrit 25.3% (36.0-47.0) 26.7% (36.0-47.0) Mean Corpuscular Volume 79fL (79-100) 82fL (79-100) Mean Corpuscular Hemoglobin 25pg (25-35) 25pg (25-35) Mean Corpuscular Hemoglobin Concent 32g/dL (31-37) 31g/dL (31-37) Red Cell Distribution Width 16.9% (11.5-14.5) 17.3% (11.5-14.5) Platelet Count 218x10^3/uL (140-400) 202x10^3/uL (140-400) Neutrophils (%) (Auto) 53% (31-73) Lymphocytes (%) (Auto) 32% (24-48) Monocytes (%) (Auto) 9% (0-9) Eosinophils (%) (Auto) 5% (0-3) Basophils (%) (Auto) 2% (0-3) Neutrophils # (Auto) 2.1x10^3uL (1.8-7.7) Lymphocytes # (Auto) 1.3x10^3/uL (1.0-4.8) Monocytes # (Auto) 0.4x10^3/uL (0.0-1.1) Eosinophils # (Auto) 0.2x10^3/uL (0.0-0.7) Basophils # (Auto) 0.1x10^3/uL (0.0-0.2) Sodium Level 145mmol/L (136-145) Potassium Level 4.2mmol/L (3.5-5.1) Chloride Level 109mmol/L (98-107) Carbon Dioxide Level 28mmol/L (21-32) Anion Gap 8 (6-14) Blood Urea Nitrogen 8mg/dL (7-20) Creatinine 0.6mg/dL (0.6-1.0) Estimated GFR (Cockcroft-Gault) 110.2 Glucose Level 80mg/dL (70-99) Calcium Level 8.5mg/dL (8.5-10.1) Medications Current Medications Fentanyl Citrate 50 mcg 50 mcg PRN Q15MIN PRN IV PAIN GREATER THAN 3/10 Last administered on 11/07/16 21:11; Start 11/07/16 at 18:00; Stop 11/07/16 at 22:51 ; Status DC Sodium Chloride (Iv Sodium Chloride 0.9% 1000ml Bag) 1,000 ml @ 1,000 mls/hr Q1H IV Last administered on 11/07/16 18:14; Start 11/07/16 at 17:51; Stop at 18:50; Status DC Ondansetron HCl (Zofran) 4 mg 1X ONCE IV Last administered on 11/07/16 18:15 ; Start 11/07/16 at 18:00; Stop 11/07/16 at 18:01; Status DC Iohexol (Omnipaque 300 Mg/ml) 75 ml 1X ONCE IV Last administered on 11/07/16 18:59; Start 11/07/16 at 18:30; Stop 11/07/16 at 18:31; Status DC Ondansetron HCl (Zofran) 4 mg PRN Q8HRS PRN IV NAUSEA/VOMITING Last administered on 11/08/16 12:28; Start 11/07/16 at 20:45; Stop 11/08/16 at 20:44 ; Status DC Fentanyl Citrate 50 mcg 50 mcg PRN Q1HR PRN IV PAIN; Start 11/07/16 at 20:45; Stop 11/07/16 at 22:51; Status DC Sodium Chloride (Iv Sodium Chloride 0.9% 1000ml Bag) 1,000 ml @ 125 mls/hr Q8H IV Last administered on 11/08/16 13:35; Start 11/07/16 at 20:34; Stop at 20:33; Status DC Acetaminophen (Tylenol) 650 mg PRN Q4HRS PRN PO FEVER; Start 11/07/16 at 20:45 ; Stop 11/08/16 at 20:44; Status DC Fentanyl Citrate 75 mcg 75 mcg PRN Q1HR PRN IV SEVERE PAIN Last administered on 11/08/16 13:36; Start 11/07/16 at 23:00; Stop 11/08/16 at 14:44; Status DC Lactated Ringer's (Iv Lactated Ringers) 1,000 ml @ 0 mls/hr Q0M IV Last administered on 11/08/16 10:40; Start 11/08/16 at 10:45 Fentanyl Citrate 100 mcg 100 mcg STK-MED ONCE .ROUTE ; Start 11/08/16 at 11:22; Stop 11/08/16 at 11:23; Status DC Propofol (Diprivan) 20 ml @ As Directed STK-MED ONCE IV ; Start 11/08/16 at 11: 22; Stop 11/08/16 at 11:23; Status DC Lidocaine HCl 5 ml 5 ml STK-MED ONCE .ROUTE ; Start 11/08/16 at 11:22; Stop at 11:23; Status DC Propofol (Diprivan) 20 ml @ As Directed STK-MED ONCE IV ; Start 11/08/16 at 11: 37; Stop 11/08/16 at 11:38; Status DC Acetaminophen (Tylenol) 325 mg PRN Q6HRS PRN PO MILD PAIN / TEMP; Start at 14:30 Hydralazine HCl (Apresoline) 10 mg PRN Q4HRS PRN IVP ELEVATED BP, SEE COMMENTS ; Start 11/08/16 at 14:30 Ondansetron HCl (Zofran) 4 mg PRN Q8HRS PRN IV NAUSEA/VOMITING; Start 11/08/16 at 14:30; Stop 11/08/16 at 15:32; Status DC Albuterol Sulfate (Ventolin Neb Soln) 2.5 mg PRN Q4HRS PRN NEB SHORTNESS OF BREATH; Start 11/08/16 at 14:30 Divalproex Sodium (Depakote) 500 mg BID PO Last administered on 11/09/16 08:25 ; Start 11/08/16 at 15:00 Acetaminophen/ Hydrocodone Bitart (Lortab 5/325) 1 tab PRN Q6HRS PRN PO PAIN Last administered on 11/09/16 11:54; Start 11/08/16 at 14:30 Pantoprazole Sodium (Protonix) 40 mg BIDAC PO ; Start 11/08/16 at 16:30; Status UNV Sertraline HCl (Zoloft) 50 mg HS PO Last administered on 11/08/16 21:50; Start 11/08/16 at 21:00 Sucralfate (Carafate) 1 gm QIDACHS PO Last administered on 11/09/16 11:53; Start 11/08/16 at 16:30 Olanzapine (Zyprexa) 10 mg QHS PO Last administered on 11/08/16 21:50; Start 11/08/16 at 21:00 Ondansetron HCl (Zofran Odt) 4 mg PRN Q6HRS PRN PO NAUSEA Last administered on 11/09/16 04:05; Start 11/08/16 at 14:45 Zolpidem Tartrate (Ambien) 5 mg PRN QHS PRN PO INSOMNIA Last administered on 22:28; Start 11/08/16 at 15:00 Pantoprazole Sodium (Protonix Vial) 40 mg BID IVP Last administered on 08:24; Start 11/08/16 at 21:00 Fentanyl Citrate (Fentanyl 2ml Vial) 25 mcg PRN Q4HRS PRN IV PAIN; Start at 14:45; Stop 11/08/16 at 15:03; Status DC Fentanyl Citrate (Fentanyl 2ml Vial) 25 mcg PRN Q4HRS PRN IV PAIN Last administered on 11/09/16 08:28; Start 11/08/16 at 15:03 Active Scripts Active Lortab 5-325 mg Tablet (Hydrocodone/Acetaminophen) 1 Each Tablet 1 Tab PO PRN Q6HRS PRN Anaspaz (Hyoscyamine Sulfate) 0.125 Mg Tab.rapdis 0.125 Mg PO PRN Q4HRS PRN Protonix (Pantoprazole Sodium) 40 Mg Tablet 40 Mg PO BIDAC Carafate (Sucralfate) 1 Gm Tablet 1 Gm PO QID Reported Ambien (Zolpidem Tartrate) 10 Mg Tablet 1 Tab PO QHS Depakote (Divalproex Sodium) 500 Mg Tablet. 1 Tab PO BID Zyprexa (Olanzapine) 10 Mg Tablet 1 Tab PO QHS Zoloft (Sertraline Hcl) 50 Mg Tablet 1 Tab PO HS Zofran (Ondansetron Hcl) 4 Mg Tablet 1 Tab PO PRN Q6HRS PRN Omeprazole 40 Mg Capsule. 1 Cap PO BID Vitals/I & O Vital Sign - Last 24 Hours 11/08/16 11/08/16 11/08/16 11/08/16 12:30 13:36 14:27 15:07 O2 Delivery Room Air Room Air Room Air Room Air 11/08/16 11/08/16 11/08/16 11/08/16 15:13 17:00 19:15 19:29 Temp 98.1 98.1 Pulse 61 Resp 16 16 B/P 136/62 Pulse Ox 98 O2 Delivery Room Air Room Air Room Air Room Air 11/08/16 11/08/16 11/08/16 11/09/16 19:59 20:00 23:15 03:44 Temp 97.5 97.5 Pulse 69 Resp 15 16 B/P 107/58 Pulse Ox 97 O2 Delivery Room Air Room Air Room Air 11/09/16 11/09/16 11/09/16 11/09/16 07:00 08:00 08:28 10:03 Temp 97.9 97.9 Pulse 59 Resp 16 B/P 122/79 Pulse Ox 100 100 O2 Delivery Room Air Room Air Room Air Room Air 11/09/16 11/09/16 11/09/16 10:54 11:49 11:54 Temp 97.6 98.5 97.6 98.5 Pulse 60 68 Resp 16 16 16 B/P 91/48 100/62 Pulse Ox 97 99 99 O2 Delivery Room Air Room Air Room Air Intake and Output 11/08/16 11/08/16 11/09/16 14:59 22:59 06:59 Intake Total 480 ml Output Total 200 ml 600 ml Balance 280 ml -600 ml CURT COOL MD Nov 09, 2016 12:21
--- NOTE | 2016-11-09 13:16 | PDOC ---
G I PROGRESS NOTE Subjective Some LLQ discomfort persists. Her description of bleeding c/w hemorrhoids. Physical Exam Lungs clear. RRR Abdomen soft, not distended. Some vague LLQ tenderness. Review of Relevant I have reviewed the following items fredo (where applicable) has been applied. Labs Laboratory Tests Test 11/07/16 17:15 11/07/16 17:45 11/07/16 18:46 11/08/16 03:30 Urine Collection Type Unknown Urine Color Yellow Urine Clarity Clear Urine pH 6.5 Urine Specific [place] 1.010 Urine Protein Negativemg/dL (NEG-TRACE) Urine Glucose (UA) Negativemg/dL (NEG) Urine Ketones (Stick) Negativemg/dL (NEG) Urine Blood Negative (NEG) Urine Nitrite Negative (NEG) Urine Bilirubin Negative (NEG) Urine Urobilinogen Dipstick 0.2mg/dL (0.2 mg/dL) Urine Leukocyte Esterase Negative (NEG) Urine RBC 0/HPF (0-2) Urine WBC 1-4/HPF (0-4) Urine Squamous Epithelial Cells Few/LPF Urine Bacteria Few/HPF (0-FEW) Urine Opiates Screen Neg (NEG) Urine Methadone Screen Neg (NEG) Urine Barbiturates Neg (NEG) Urine Phencyclidine Screen Neg (NEG) Urine Amphetamine/Methamphetamine Neg (NEG) Urine Benzodiazepines Screen Neg (NEG) Urine Cocaine Screen Neg (NEG) Urine Cannabinoids Screen Pos (NEG) Urine Ethyl Alcohol Neg (NEG) White Blood Count 5.6x10^3/uL (4.0-11.0) 5.0x10^3/uL (4.0-11.0) Red Blood Count 3.28x10^6/uL (3.50-5.40) 2.97x10^6/uL (3.50-5.40) Hemoglobin 8.1g/dL (12.0-15.5) 7.3g/dL (12.0-15.5) Hematocrit 26.4% (36.0-47.0) 24.0% (36.0-47.0) Mean Corpuscular Volume 80fL (79-100) 81fL (79-100) Mean Corpuscular Hemoglobin 25pg (25-35) 25pg (25-35) Mean Corpuscular Hemoglobin Concent 31g/dL (31-37) 30g/dL (31-37) Red Cell Distribution Width 16.8% (11.5-14.5) 17.1% (11.5-14.5) Platelet Count 253x10^3/uL (140-400) 204x10^3/uL (140-400) Neutrophils (%) (Auto) 68% (31-73) 60% (31-73) Lymphocytes (%) (Auto) 18% (24-48) 27% (24-48) Monocytes (%) (Auto) 9% (0-9) 7% (0-9) Eosinophils (%) (Auto) 4% (0-3) 4% (0-3) Basophils (%) (Auto) 1% (0-3) 1% (0-3) Neutrophils # (Auto) 3.8x10^3uL (1.8-7.7) 3.0x10^3uL (1.8-7.7) Lymphocytes # (Auto) 1.0x10^3/uL (1.0-4.8) 1.4x10^3/uL (1.0-4.8) Monocytes # (Auto) 0.5x10^3/uL (0.0-1.1) 0.4x10^3/uL (0.0-1.1) Eosinophils # (Auto) 0.2x10^3/uL (0.0-0.7) 0.2x10^3/uL (0.0-0.7) Basophils # (Auto) 0.1x10^3/uL (0.0-0.2) 0.1x10^3/uL (0.0-0.2) Prothrombin Time 12.3SEC (11.7-14.0) Prothromb Time International Ratio 1.0 (0.8-1.1) Activated Partial Thromboplast Time 29SEC (24-38) Sodium Level 143mmol/L (136-145) 145mmol/L (136-145) Potassium Level 4.1mmol/L (3.5-5.1) 3.5mmol/L (3.5-5.1) Chloride Level 108mmol/L (98-107) 110mmol/L (98-107) Carbon Dioxide Level 25mmol/L (21-32) 29mmol/L (21-32) Anion Gap 10 (6-14) 6 (6-14) Blood Urea Nitrogen 15mg/dL (7-20) 13mg/dL (7-20) Creatinine 0.7mg/dL (0.6-1.0) 0.6mg/dL (0.6-1.0) Estimated GFR (Cockcroft-Gault) 92.2 110.2 BUN/Creatinine Ratio 21 (6-20) Glucose Level 100mg/dL (70-99) 91mg/dL (70-99) Calcium Level 8.4mg/dL (8.5-10.1) 8.1mg/dL (8.5-10.1) Total Bilirubin 0.1mg/dL (0.2-1.0) Aspartate Amino Transf (AST/SGOT) 17U/L (15-37) Alanine Aminotransferase (ALT/SGPT) 30U/L (14-59) Alkaline Phosphatase 103U/L (46-116) Total Protein 6.5g/dL (6.4-8.2) Albumin 3.6g/dL (3.4-5.0) Albumin/Globulin Ratio 1.2 (1.0-1.7) Lipase 57U/L (73-393) Stool Occult Blood Positive (NEG) Test 11/08/16 17:10 11/09/16 03:55 White Blood Count 4.7x10^3/uL (4.0-11.0) 3.9x10^3/uL (4.0-11.0) Red Blood Count 3.20x10^6/uL (3.50-5.40) 3.27x10^6/uL (3.50-5.40) Hemoglobin 8.0g/dL (12.0-15.5) 8.2g/dL (12.0-15.5) Hematocrit 25.3% (36.0-47.0) 26.7% (36.0-47.0) Mean Corpuscular Volume 79fL (79-100) 82fL (79-100) Mean Corpuscular Hemoglobin 25pg (25-35) 25pg (25-35) Mean Corpuscular Hemoglobin Concent 32g/dL (31-37) 31g/dL (31-37) Red Cell Distribution Width 16.9% (11.5-14.5) 17.3% (11.5-14.5) Platelet Count 218x10^3/uL (140-400) 202x10^3/uL (140-400) Neutrophils (%) (Auto) 53% (31-73) Lymphocytes (%) (Auto) 32% (24-48) Monocytes (%) (Auto) 9% (0-9) Eosinophils (%) (Auto) 5% (0-3) Basophils (%) (Auto) 2% (0-3) Neutrophils # (Auto) 2.1x10^3uL (1.8-7.7) Lymphocytes # (Auto) 1.3x10^3/uL (1.0-4.8) Monocytes # (Auto) 0.4x10^3/uL (0.0-1.1) Eosinophils # (Auto) 0.2x10^3/uL (0.0-0.7) Basophils # (Auto) 0.1x10^3/uL (0.0-0.2) Sodium Level 145mmol/L (136-145) Potassium Level 4.2mmol/L (3.5-5.1) Chloride Level 109mmol/L (98-107) Carbon Dioxide Level 28mmol/L (21-32) Anion Gap 8 (6-14) Blood Urea Nitrogen 8mg/dL (7-20) Creatinine 0.6mg/dL (0.6-1.0) Estimated GFR (Cockcroft-Gault) 110.2 Glucose Level 80mg/dL (70-99) Calcium Level 8.5mg/dL (8.5-10.1) Laboratory Tests Test 11/08/16 17:10 11/09/16 03:55 White Blood Count 4.7x10^3/uL (4.0-11.0) 3.9x10^3/uL (4.0-11.0) Red Blood Count 3.20x10^6/uL (3.50-5.40) 3.27x10^6/uL (3.50-5.40) Hemoglobin 8.0g/dL (12.0-15.5) 8.2g/dL (12.0-15.5) Hematocrit 25.3% (36.0-47.0) 26.7% (36.0-47.0) Mean Corpuscular Volume 79fL (79-100) 82fL (79-100) Mean Corpuscular Hemoglobin 25pg (25-35) 25pg (25-35) Mean Corpuscular Hemoglobin Concent 32g/dL (31-37) 31g/dL (31-37) Red Cell Distribution Width 16.9% (11.5-14.5) 17.3% (11.5-14.5) Platelet Count 218x10^3/uL (140-400) 202x10^3/uL (140-400) Neutrophils (%) (Auto) 53% (31-73) Lymphocytes (%) (Auto) 32% (24-48) Monocytes (%) (Auto) 9% (0-9) Eosinophils (%) (Auto) 5% (0-3) Basophils (%) (Auto) 2% (0-3) Neutrophils # (Auto) 2.1x10^3uL (1.8-7.7) Lymphocytes # (Auto) 1.3x10^3/uL (1.0-4.8) Monocytes # (Auto) 0.4x10^3/uL (0.0-1.1) Eosinophils # (Auto) 0.2x10^3/uL (0.0-0.7) Basophils # (Auto) 0.1x10^3/uL (0.0-0.2) Sodium Level 145mmol/L (136-145) Potassium Level 4.2mmol/L (3.5-5.1) Chloride Level 109mmol/L (98-107) Carbon Dioxide Level 28mmol/L (21-32) Anion Gap 8 (6-14) Blood Urea Nitrogen 8mg/dL (7-20) Creatinine 0.6mg/dL (0.6-1.0) Estimated GFR (Cockcroft-Gault) 110.2 Glucose Level 80mg/dL (70-99) Calcium Level 8.5mg/dL (8.5-10.1) MCV near lower limits of normal and elevated RDW. Iron deficient? If so, would indicate more chronic process. Medications Current Medications Fentanyl Citrate 50 mcg 50 mcg PRN Q15MIN PRN IV PAIN GREATER THAN 3/10 Last administered on 11/07/16 21:11; Start 11/07/16 at 18:00; Stop 11/07/16 at 22:51 ; Status DC Sodium Chloride (Iv Sodium Chloride 0.9% 1000ml Bag) 1,000 ml @ 1,000 mls/hr Q1H IV Last administered on 11/07/16 18:14; Start 11/07/16 at 17:51; Stop at 18:50; Status DC Ondansetron HCl (Zofran) 4 mg 1X ONCE IV Last administered on 11/07/16 18:15 ; Start 11/07/16 at 18:00; Stop 11/07/16 at 18:01; Status DC Iohexol (Omnipaque 300 Mg/ml) 75 ml 1X ONCE IV Last administered on 11/07/16 18:59; Start 11/07/16 at 18:30; Stop 11/07/16 at 18:31; Status DC Ondansetron HCl (Zofran) 4 mg PRN Q8HRS PRN IV NAUSEA/VOMITING Last administered on 11/08/16 12:28; Start 11/07/16 at 20:45; Stop 11/08/16 at 20:44 ; Status DC Fentanyl Citrate 50 mcg 50 mcg PRN Q1HR PRN IV PAIN; Start 11/07/16 at 20:45; Stop 11/07/16 at 22:51; Status DC Sodium Chloride (Iv Sodium Chloride 0.9% 1000ml Bag) 1,000 ml @ 125 mls/hr Q8H IV Last administered on 11/08/16 13:35; Start 11/07/16 at 20:34; Stop at 20:33; Status DC Acetaminophen (Tylenol) 650 mg PRN Q4HRS PRN PO FEVER; Start 11/07/16 at 20:45 ; Stop 11/08/16 at 20:44; Status DC Fentanyl Citrate 75 mcg 75 mcg PRN Q1HR PRN IV SEVERE PAIN Last administered on 11/08/16 13:36; Start 11/07/16 at 23:00; Stop 11/08/16 at 14:44; Status DC Lactated Ringer's (Iv Lactated Ringers) 1,000 ml @ 0 mls/hr Q0M IV Last administered on 11/08/16 10:40; Start 11/08/16 at 10:45 Fentanyl Citrate 100 mcg 100 mcg STK-MED ONCE .ROUTE ; Start 11/08/16 at 11:22; Stop 11/08/16 at 11:23; Status DC Propofol (Diprivan) 20 ml @ As Directed STK-MED ONCE IV ; Start 11/08/16 at 11: 22; Stop 11/08/16 at 11:23; Status DC Lidocaine HCl 5 ml 5 ml STK-MED ONCE .ROUTE ; Start 11/08/16 at 11:22; Stop at 11:23; Status DC Propofol (Diprivan) 20 ml @ As Directed STK-MED ONCE IV ; Start 11/08/16 at 11: 37; Stop 11/08/16 at 11:38; Status DC Acetaminophen (Tylenol) 325 mg PRN Q6HRS PRN PO MILD PAIN / TEMP; Start at 14:30 Hydralazine HCl (Apresoline) 10 mg PRN Q4HRS PRN IVP ELEVATED BP, SEE COMMENTS ; Start 11/08/16 at 14:30 Ondansetron HCl (Zofran) 4 mg PRN Q8HRS PRN IV NAUSEA/VOMITING; Start 11/08/16 at 14:30; Stop 11/08/16 at 15:32; Status DC Albuterol Sulfate (Ventolin Neb Soln) 2.5 mg PRN Q4HRS PRN NEB SHORTNESS OF BREATH; Start 11/08/16 at 14:30 Divalproex Sodium (Depakote) 500 mg BID PO Last administered on 11/09/16 08:25 ; Start 11/08/16 at 15:00 Acetaminophen/ Hydrocodone Bitart (Lortab 5/325) 1 tab PRN Q6HRS PRN PO PAIN Last administered on 11/09/16 11:54; Start 11/08/16 at 14:30 Pantoprazole Sodium (Protonix) 40 mg BIDAC PO ; Start 11/08/16 at 16:30; Status UNV Sertraline HCl (Zoloft) 50 mg HS PO Last administered on 11/08/16 21:50; Start 11/08/16 at 21:00 Sucralfate (Carafate) 1 gm QIDACHS PO Last administered on 11/09/16 11:53; Start 11/08/16 at 16:30 Olanzapine (Zyprexa) 10 mg QHS PO Last administered on 11/08/16 21:50; Start 11/08/16 at 21:00 Ondansetron HCl (Zofran Odt) 4 mg PRN Q6HRS PRN PO NAUSEA Last administered on 11/09/16 13:10; Start 11/08/16 at 14:45 Zolpidem Tartrate (Ambien) 5 mg PRN QHS PRN PO INSOMNIA Last administered on 22:28; Start 11/08/16 at 15:00 Pantoprazole Sodium (Protonix Vial) 40 mg BID IVP Last administered on 08:24; Start 11/08/16 at 21:00 Fentanyl Citrate (Fentanyl 2ml Vial) 25 mcg PRN Q4HRS PRN IV PAIN; Start at 14:45; Stop 11/08/16 at 15:03; Status DC Fentanyl Citrate (Fentanyl 2ml Vial) 25 mcg PRN Q4HRS PRN IV PAIN Last administered on 11/09/16 08:28; Start 11/08/16 at 15:03 Active Scripts Active Lortab 5-325 mg Tablet (Hydrocodone/Acetaminophen) 1 Each Tablet 1 Tab PO PRN Q6HRS PRN Anaspaz (Hyoscyamine Sulfate) 0.125 Mg Tab.rapdis 0.125 Mg PO PRN Q4HRS PRN Protonix (Pantoprazole Sodium) 40 Mg Tablet 40 Mg PO BIDAC Carafate (Sucralfate) 1 Gm Tablet 1 Gm PO QID Reported Ambien (Zolpidem Tartrate) 10 Mg Tablet 1 Tab PO QHS Depakote (Divalproex Sodium) 500 Mg Tablet. 1 Tab PO BID Zyprexa (Olanzapine) 10 Mg Tablet 1 Tab PO QHS Zoloft (Sertraline Hcl) 50 Mg Tablet 1 Tab PO HS Zofran (Ondansetron Hcl) 4 Mg Tablet 1 Tab PO PRN Q6HRS PRN Omeprazole 40 Mg Capsule. 1 Cap PO BID Vitals/I & O Vital Sign - Last 24 Hours 11/08/16 11/08/16 11/08/1611/08/17 13:36 14:27 15:07 15:13 O2 Delivery Room Air Room Air Room Air Room Air 11/08/16 11/08/16 11/08/16 11/08/16 17:00 19:15 19:29 19:59 Temp 98.1 98.1 Pulse 61 Resp 16 16 15 B/P 136/62 Pulse Ox 98 O2 Delivery Room Air Room Air Room Air 11/08/16 11/08/16 11/09/16 11/09/16 20:00 23:15 03:44 07:00 Temp 97.5 97.9 97.5 97.9 Pulse 69 59 Resp 16 16 B/P 107/58 122/79 Pulse Ox 97 100 O2 Delivery Room Air Room Air Room Air Room Air 11/09/16 11/09/16 11/09/16 11/09/16 08:00 08:28 10:03 10:54 Temp 97.6 97.6 Pulse 60 Resp 16 B/P 91/48 Pulse Ox 100 97 O2 Delivery Room Air Room Air Room Air Room Air 11/09/16 11/09/16 11:49 11:54 Temp 98.5 98.5 Pulse 68 Resp 16 16 B/P 100/62 Pulse Ox 99 99 O2 Delivery Room Air Room Air Intake and Output 11/08/16 11/08/16 11/09/16 15:00 23:00 07:00 Intake Total 480 ml Output Total 200 ml 600 ml Balance 280 ml -600 ml Problem List Problems Medical Problems: (1) Abdominal pain Status: Acute (2) GI (gastrointestinal bleed) Status: Acute (3) Lower GI bleeding Status: Acute Assessment Does not seem having meaningful acute bleeding. EVER? Plan of Care: Continue current Tx, Mgmt Plan of Care Note Check iron studies. FEDE CARPENTER MD Nov 09, 2016 13:16
[2016-11-09 13:41] LABS: % SAT IRON 5 % (15-34); IRON,SERUM 23 ug/dL (50-170)
--- NOTE | 2016-11-09 18:57 | CONS ---
DATE OF CONSULTATION: 11/08/2016 REASON FOR CONSULTATION: History of gastric bypass, left lower quadrant abdominal pain and acute blood loss anemia. HISTORY OF PRESENT ILLNESS: A 41-year-old female with past medical history significant for gastric bypass, cholecystectomy, appendectomy, history of depression, gastroesophageal reflux disease and anastomotic ulcer is admitted to [facility] with worsening pain left lower quadrant associated with a hemoglobin of 8.1 with some dark stools. CT scan did reveal intact small bowel anastomosis. Monitor stool throughout the colon, status post appendectomy without colon wall thickening, additional pathology. She does have mild ____ left adnexal free fluid, which may be an explanation for her pain. PAST MEDICAL HISTORY: History of diverticulosis, cholecystectomy, gastric bypass, appendectomy, chronic anemia, depression, reflux. ALLERGIES: NSAID, WELL BENADRYL, HALOPERIDOL, REGLAN, MORPHINE, , PROCHLORPERAZINE, PROMETHAZINE. SOCIAL HISTORY: Does not drink or smoke at this time. PAST SURGICAL HISTORY: She has had 2 PEG tubes with laparoscopy, there is history of hiatal hernia or gastric bypass reversal. REVIEW OF SYSTEMS: As per records. PHYSICAL EXAMINATION: GENERAL: Reveals a well-nourished, well-developed female. VITAL SIGNS: Temperature is 97, pulse 60, respirations 18. HEENT: Normocephalic and atraumatic head. Pupils and extraocular movements not tested. Sclerae are anicteric. NECK: Supple. LUNGS: Clear. CARDIOVASCULAR: Reveals an S1, S2 without S3, S4 or appreciable murmur. ABDOMEN: Reveals a soft abdomen, normoactive bowel sounds of left lower quadrants deep palpation without appreciable hepatosplenomegaly. Multiple surgical incisions. EXTREMITIES: Reveals no cyanosis, clubbing, edema. LABORATORY STUDIES: Sodium 145, potassium 3.5, chloride 110, bicarbonate is 29, BUN 13, creatinine 0.6, glucose 91, calcium 8.1, total bilirubin 0.1, AST of 17, ALT 30, alkaline phosphatase 130, total protein 6.5, albumin 3.6, lipase 57. INR is 1.0. Hemoglobin is 8.0 on admission, now 7.3, white count is 5.0, platelet count is 204,000. IMPRESSION: Chronic anemia with acute blood loss, status post gastric bypass, left upper quadrant abdominal pain, etiology is to be determined. Next, the fluid may be contributing to the pain and the anemia may be secondary to recurrent anastomotic ulcers; therefore, the patient proceed for upper endoscopy, if this was negative and iron parameters, otherwise ____ iron-deficiency anemia and perhaps small bowel series, bleeding scan and/or colonoscopy would be pursued. The patient's either inpatient or outpatient depending upon her clinical course. I would like to thank Dr. Sprague for allowing us to consult and the patient's care. WILL KELLER MD DR: ROD/rina JOB#: [id number] / [id number]
[2016-11-09] MEDS: OLANZAPINE 5 MG TABLET. PO SCH (22:14)
[2016-11-09] MEDS: SERTRALINE 50 MG TABLET. PO SCH (22:14)
[2016-11-09] MEDS: ZOLPIDEM 5 MG TABLET. PO PRN ×2 (22:14→22:41)
--- NOTE | 2016-11-10 01:16 | CONS ---
DATE OF CONSULTATION: 11/08/[address] Sprague. SUBJECTIVE: The patient is a 41-year-old lady who has had previous bariatric surgery and subsequent reversal. She has chronic anemia. She has had intermittent episodes of bleeding per rectum and abdominal pain. She presented this time with abdominal pain and black tarry stools. She was admitted after her hemoglobin was found to be 8.1. We are asked to see her for followup. PAST MEDICAL HISTORY AND SURGERY: Gastric bypass with subsequent reversal, hiatal hernia repair, ovarian cysts with 3 laparoscopic surgeries, history of previous PEG tubes x 2, cholecystectomy, appendectomy. Medically, history of GERD, depression. ALLERGIES: She is allergic to NSAID, DIPHENHYDRAMINE, HALDOL, REGLAN, MORPHINE, PROCHLORPERAZINE, PROMETHAZINE AND SUMATRIPTAN. ROUTINE MEDICATIONS: Listed on reconciliation sheet. FAMILY HISTORY: No significant known. SOCIAL HISTORY: She is a nonsmoker, does not use alcohol, occasionally smoke some marijuana. REVIEW OF SYSTEMS: GENERAL: Denies chills or fevers. HEENT: No recent sore throat or earaches, although she has some irritation from her chronic . CARDIAC: No recent chest pain or palpitations. RESPIRATORY: No productive cough or wheezing. GASTROINTESTINAL: See history of present illness. GENITOURINARY: No increased frequency or dysuria. GYNECOLOGICAL: Ovarian cyst history. PSYCHIATRIC: History of depression. MUSCULOSKELETAL: No joint or knee pain. OBJECTIVE: PHYSICAL EXAMINATION: GENERAL: Reveals a well-developed, well-nourished female who is awake, alert and oriented, in no acute distress. VITAL SIGNS: She is afebrile, heart rate is 60, blood pressure 91/48. HEENT: Normocephalic. EOMs intact. NECK: Supple. LUNGS: Clear. HEART: Regular rate and rhythm. BREAST: Deferred. ABDOMEN: The belly is soft and nondistended. There are multiple well-healed surgical scars present. PELVIC AND RECTAL: Deferred. EXTREMITIES: Showed no gross skeletal abnormalities. There were some recent transverse superficial lacerations at the left forearm. NEUROLOGIC: She is grossly intact. ADMISSION LABORATORY DATA: Showed hemoglobin of 8.1. Chemistries were essentially unremarkable. CT of the abdomen and pelvis done on presentation showed mild left adnexal fluid, which may be physiologic with no other abnormalities. A red cell bleeding scan was negative. IMPRESSION: 1. Possible acute on chronic blood loss anemia. 2. History of depression. 3. History of previous gastric bypass with subsequent reversal. PLAN: No acute surgical plans at present. We will follow along with you. Thank you for asking us to see this lady and participate in her care. WILLIE MEDINA MD DR: MAJOR/rina JOB#: [id number] / [id number]
[2016-11-10] MEDS: FENTANYL PF 100 MCG/2 ML VIAL. IV PRN ×2 (03:16→08:12)
[2016-11-10 03:44] VITALS: BP 96/54
[2016-11-10 05:07] LABS: BASO % 1 % (0-3); EOS % 3 % (0-3); HEMATOCRIT 27.3 % (36.0-47.0); HEMOGLOBIN 8.4 g/dL (12.0-15.5); LYMPH # 1.3 x10^3/uL (1.0-4.8); LYMPH % 37 % (24-48); MEAN CORPUSCULAR HEMOGLOBIN 25 pg (25-35); MEAN CORPUSCULAR HGB CONC 31 g/dL (31-37); MEAN CORPUSCULAR VOLUME 81 fL (79-100); MONO % 8 % (0-9); NEUT % 51 % (31-73); PLATELET COUNT 268 x10^3/uL (140-400); RED BLOOD COUNT 3.39 x10^6/uL (3.50-5.40); RED CELL DISTRIBUTION WIDTH 17.6 % (11.5-14.5); WHITE BLOOD COUNT 3.5 x10^3/uL (4.0-11.0)
[2016-11-10 05:53] LABS: CALCIUM 8.5 mg/dL (8.5-10.1); CREATININE 0.8 mg/dL (0.6-1.0); POTASSIUM 4.3 mmol/L (3.5-5.1)
[2016-11-10] MEDS: ONDANSETRON ODT 4 MG TAB.RAPDIS. PO PRN (06:41)
[2016-11-10 07:00] VITALS: BP 102/69
[2016-11-10] MEDS: SUCRALFATE 1 GM TABLET. PO SCH (07:30)
[2016-11-10] MEDS: DIVALPROEX DELAYED RELEASE 500 MG TABLET.DR. PO SCH (08:11)
[2016-11-10] MEDS: PANTOPRAZOLE IV PUSH 40 MG VIAL. IVP SCH (08:11)
[2016-11-10 11:00] VITALS: BP 98/56
--- NOTE | 2016-11-10 12:34 | PDOC ---
PROGRESS NOTES Chief Complaint Chief Complaint cc: gi bleeding A/P 1. Abdominal pain and suspected upper gastrointestinal bleeding, S/P EGD, non- erosive gastritis: Monitor hemoglobin, stable, negative nuclear medicine scan for bleeding. clear liquid diet, anticipated DC based on GI recommendations, advance diet as tolerated. 2. Prior history of gastric bypass surgeries with anastomotic ulcers. 3. Anxiety /Depression, Stable 4. Intractable nausea: resolved. Vitals Vitals Vital Signs Date Time Temp Pulse Resp B/P Pulse Ox O2 Delivery O2 Flow Rate FiO2 11/10/16 11:00 97.8 54 16 98/56 100 Room Air 97.8 Physical Exam General: Alert, Oriented X3, Cooperative Heart: Normal S1, Normal S2 Lungs: Clear Abdomen: Normal bowel sounds Labs LABS Laboratory Tests Test 11/10/16 04:55 White Blood Count 3.5x10^3/uL (4.0-11.0) Red Blood Count 3.39x10^6/uL (3.50-5.40) Hemoglobin 8.4g/dL (12.0-15.5) Hematocrit 27.3% (36.0-47.0) Mean Corpuscular Volume 81fL (79-100) Mean Corpuscular Hemoglobin 25pg (25-35) Mean Corpuscular Hemoglobin Concent 31g/dL (31-37) Red Cell Distribution Width 17.6% (11.5-14.5) Platelet Count 268x10^3/uL (140-400) Neutrophils (%) (Auto) 51% (31-73) Lymphocytes (%) (Auto) 37% (24-48) Monocytes (%) (Auto) 8% (0-9) Eosinophils (%) (Auto) 3% (0-3) Basophils (%) (Auto) 1% (0-3) Neutrophils # (Auto) 1.8x10^3uL (1.8-7.7) Lymphocytes # (Auto) 1.3x10^3/uL (1.0-4.8) Monocytes # (Auto) 0.3x10^3/uL (0.0-1.1) Eosinophils # (Auto) 0.1x10^3/uL (0.0-0.7) Basophils # (Auto) 0.0x10^3/uL (0.0-0.2) Sodium Level 145mmol/L (136-145) Potassium Level 4.3mmol/L (3.5-5.1) Chloride Level 108mmol/L (98-107) Carbon Dioxide Level 26mmol/L (21-32) Anion Gap 11 (6-14) Blood Urea Nitrogen 12mg/dL (7-20) Creatinine 0.8mg/dL (0.6-1.0) Estimated GFR (Cockcroft-Gault) 79.0 Glucose Level 100mg/dL (70-99) Calcium Level 8.5mg/dL (8.5-10.1) Assessment and Plan Assessmemt and Plan Problems Medical Problems: (1) Abdominal pain Status: Acute (2) GI (gastrointestinal bleed) Status: Acute (3) Lower GI bleeding Status: Acute Problems: Comment Review of Relevant I have reviewed the following items fredo (where applicable) has been applied. Labs Laboratory Tests Test 11/08/16 17:10 11/09/16 03:55 11/10/16 04:55 White Blood Count 4.7x10^3/uL (4.0-11.0) 3.9x10^3/uL (4.0-11.0) 3.5x10^3/uL (4.0-11.0) Red Blood Count 3.20x10^6/uL (3.50-5.40) 3.27x10^6/uL (3.50-5.40) 3.39x10^6/uL (3.50-5.40) Hemoglobin 8.0g/dL (12.0-15.5) 8.2g/dL (12.0-15.5) 8.4g/dL (12.0-15.5) Hematocrit 25.3% (36.0-47.0) 26.7% (36.0-47.0) 27.3% (36.0-47.0) Mean Corpuscular Volume 79fL (79-100) 82fL (79-100) 81fL (79-100) Mean Corpuscular Hemoglobin 25pg (25-35) 25pg (25-35) 25pg (25-35) Mean Corpuscular Hemoglobin Concent 32g/dL (31-37) 31g/dL (31-37) 31g/dL (31-37) Red Cell Distribution Width 16.9% (11.5-14.5) 17.3% (11.5-14.5) 17.6% (11.5-14.5) Platelet Count 218x10^3/uL (140-400) 202x10^3/uL (140-400) 268x10^3/uL (140-400) Iron Level 23ug/dL (50-170) Total Iron Binding Capacity 434ug/dL (250-450) Iron Saturation 5% (15-34) Neutrophils (%) (Auto) 53% (31-73) 51% (31-73) Lymphocytes (%) (Auto) 32% (24-48) 37% (24-48) Monocytes (%) (Auto) 9% (0-9) 8% (0-9) Eosinophils (%) (Auto) 5% (0-3) 3% (0-3) Basophils (%) (Auto) 2% (0-3) 1% (0-3) Neutrophils # (Auto) 2.1x10^3uL (1.8-7.7) 1.8x10^3uL (1.8-7.7) Lymphocytes # (Auto) 1.3x10^3/uL (1.0-4.8) 1.3x10^3/uL (1.0-4.8) Monocytes # (Auto) 0.4x10^3/uL (0.0-1.1) 0.3x10^3/uL (0.0-1.1) Eosinophils # (Auto) 0.2x10^3/uL (0.0-0.7) 0.1x10^3/uL (0.0-0.7) Basophils # (Auto) 0.1x10^3/uL (0.0-0.2) 0.0x10^3/uL (0.0-0.2) Sodium Level 145mmol/L (136-145) 145mmol/L (136-145) Potassium Level 4.2mmol/L (3.5-5.1) 4.3mmol/L (3.5-5.1) Chloride Level 109mmol/L (98-107) 108mmol/L (98-107) Carbon Dioxide Level 28mmol/L (21-32) 26mmol/L (21-32) Anion Gap 8 (6-14) 11 (6-14) Blood Urea Nitrogen 8mg/dL (7-20) 12mg/dL (7-20) Creatinine 0.6mg/dL (0.6-1.0) 0.8mg/dL (0.6-1.0) Estimated GFR (Cockcroft-Gault) 110.2 79.0 Glucose Level 80mg/dL (70-99) 100mg/dL (70-99) Calcium Level 8.5mg/dL (8.5-10.1) 8.5mg/dL (8.5-10.1) Laboratory Tests Test 11/10/16 04:55 White Blood Count 3.5x10^3/uL (4.0-11.0) Red Blood Count 3.39x10^6/uL (3.50-5.40) Hemoglobin 8.4g/dL (12.0-15.5) Hematocrit 27.3% (36.0-47.0) Mean Corpuscular Volume 81fL (79-100) Mean Corpuscular Hemoglobin 25pg (25-35) Mean Corpuscular Hemoglobin Concent 31g/dL (31-37) Red Cell Distribution Width 17.6% (11.5-14.5) Platelet Count 268x10^3/uL (140-400) Neutrophils (%) (Auto) 51% (31-73) Lymphocytes (%) (Auto) 37% (24-48) Monocytes (%) (Auto) 8% (0-9) Eosinophils (%) (Auto) 3% (0-3) Basophils (%) (Auto) 1% (0-3) Neutrophils # (Auto) 1.8x10^3uL (1.8-7.7) Lymphocytes # (Auto) 1.3x10^3/uL (1.0-4.8) Monocytes # (Auto) 0.3x10^3/uL (0.0-1.1) Eosinophils # (Auto) 0.1x10^3/uL (0.0-0.7) Basophils # (Auto) 0.0x10^3/uL (0.0-0.2) Sodium Level 145mmol/L (136-145) Potassium Level 4.3mmol/L (3.5-5.1) Chloride Level 108mmol/L (98-107) Carbon Dioxide Level 26mmol/L (21-32) Anion Gap 11 (6-14) Blood Urea Nitrogen 12mg/dL (7-20) Creatinine 0.8mg/dL (0.6-1.0) Estimated GFR (Cockcroft-Gault) 79.0 Glucose Level 100mg/dL (70-99) Calcium Level 8.5mg/dL (8.5-10.1) Medications Current Medications Fentanyl Citrate 50 mcg 50 mcg PRN Q15MIN PRN IV PAIN GREATER THAN 3/10 Last administered on 11/07/16 21:11; Start 11/07/16 at 18:00; Stop 11/07/16 at 22:51 ; Status DC Sodium Chloride (Iv Sodium Chloride 0.9% 1000ml Bag) 1,000 ml @ 1,000 mls/hr Q1H IV Last administered on 11/07/16 18:14; Start 11/07/16 at 17:51; Stop at 18:50; Status DC Ondansetron HCl (Zofran) 4 mg 1X ONCE IV Last administered on 11/07/16 18:15 ; Start 11/07/16 at 18:00; Stop 11/07/16 at 18:01; Status DC Iohexol (Omnipaque 300 Mg/ml) 75 ml 1X ONCE IV Last administered on 11/07/16 18:59; Start 11/07/16 at 18:30; Stop 11/07/16 at 18:31; Status DC Ondansetron HCl (Zofran) 4 mg PRN Q8HRS PRN IV NAUSEA/VOMITING Last administered on 11/08/16 12:28; Start 11/07/16 at 20:45; Stop 11/08/16 at 20:44 ; Status DC Fentanyl Citrate 50 mcg 50 mcg PRN Q1HR PRN IV PAIN; Start 11/07/16 at 20:45; Stop 11/07/16 at 22:51; Status DC Sodium Chloride (Iv Sodium Chloride 0.9% 1000ml Bag) 1,000 ml @ 125 mls/hr Q8H IV Last administered on 11/08/16 13:35; Start 11/07/16 at 20:34; Stop at 20:33; Status DC Acetaminophen (Tylenol) 650 mg PRN Q4HRS PRN PO FEVER; Start 11/07/16 at 20:45 ; Stop 11/08/16 at 20:44; Status DC Fentanyl Citrate 75 mcg 75 mcg PRN Q1HR PRN IV SEVERE PAIN Last administered on 11/08/16t 13:36; Start 11/07/16 at 23:00; Stop 11/08/16 at 14:44; Status DC Lactated Ringer's (Iv Lactated Ringers) 1,000 ml @ 0 mls/hr Q0M IV Last administered on 11/08/16t 10:40; Start 11/08/16 at 10:45; Stop 11/09/16 at 15:16 ; Status DC Fentanyl Citrate 100 mcg 100 mcg STK-MED ONCE .ROUTE ; Start 11/08/16 at 11:22; Stop 11/08/16 at 11:23; Status DC Propofol (Diprivan) 20 ml @ As Directed STK-MED ONCE IV ; Start 11/08/16 at 11: 22; Stop 11/08/16 at 11:23; Status DC Lidocaine HCl 5 ml 5 ml STK-MED ONCE .ROUTE ; Start 11/08/16 at 11:22; Stop at 11:23; Status DC Propofol (Diprivan) 20 ml @ As Directed STK-MED ONCE IV ; Start 11/08/16 at 11: 37; Stop 11/08/16 at 11:38; Status DC Acetaminophen (Tylenol) 325 mg PRN Q6HRS PRN PO MILD PAIN / TEMP; Start at 14:30 Hydralazine HCl (Apresoline) 10 mg PRN Q4HRS PRN IVP ELEVATED BP, SEE COMMENTS ; Start 11/08/16 at 14:30 Ondansetron HCl (Zofran) 4 mg PRN Q8HRS PRN IV NAUSEA/VOMITING; Start 11/08/16 at 14:30; Stop 11/08/16 at 15:32; Status DC Albuterol Sulfate (Ventolin Neb Soln) 2.5 mg PRN Q4HRS PRN NEB SHORTNESS OF BREATH; Start 11/08/16 at 14:30 Divalproex Sodium (Depakote) 500 mg BID PO Last administered on 11/10/16 08:11 ; Start 11/08/16 at 15:00 Acetaminophen/ Hydrocodone Bitart (Lortab 5/325) 1 tab PRN Q6HRS PRN PO PAIN Last administered on 11/09/16 19:15; Start 11/08/16 at 14:30 Pantoprazole Sodium (Protonix) 40 mg BIDAC PO ; Start 11/08/16 at 16:30; Status UNV Sertraline HCl (Zoloft) 50 mg HS PO Last administered on 11/09/16 22:14; Start 11/08/16 at 21:00 Sucralfate (Carafate) 1 gm QIDACHS PO Last administered on 11/09/16 11:53; Start 11/08/16 at 16:30 Olanzapine (Zyprexa) 10 mg QHS PO Last administered on 11/09/16 22:14; Start 11/08/16 at 21:00 Ondansetron HCl (Zofran Odt) 4 mg PRN Q6HRS PRN PO NAUSEA Last administered on 11/10/16 06:41; Start 11/08/16 at 14:45 Zolpidem Tartrate (Ambien) 5 mg PRN QHS PRN PO INSOMNIA Last administered on 22:41; Start 11/08/16 at 15:00 Pantoprazole Sodium (Protonix Vial) 40 mg BID IVP Last administered on 08:11; Start 11/08/16 at 21:00 Fentanyl Citrate (Fentanyl 2ml Vial) 25 mcg PRN Q4HRS PRN IV PAIN; Start at 14:45; Stop 11/08/16 at 15:03; Status DC Fentanyl Citrate (Fentanyl 2ml Vial) 25 mcg PRN Q4HRS PRN IV PAIN Last administered on 11/10/16 08:12; Start 11/08/16 at 15:03 Active Scripts Active Lortab 5-325 mg Tablet (Hydrocodone/Acetaminophen) 1 Each Tablet 1 Tab PO PRN Q6HRS PRN Anaspaz (Hyoscyamine Sulfate) 0.125 Mg Tab.rapdis 0.125 Mg PO PRN Q4HRS PRN Protonix (Pantoprazole Sodium) 40 Mg Tablet 40 Mg PO BIDAC Carafate (Sucralfate) 1 Gm Tablet 1 Gm PO QID Reported Ambien (Zolpidem Tartrate) 10 Mg Tablet 1 Tab PO QHS Depakote (Divalproex Sodium) 500 Mg Tablet. 1 Tab PO BID Zyprexa (Olanzapine) 10 Mg Tablet 1 Tab PO QHS Zoloft (Sertraline Hcl) 50 Mg Tablet 1 Tab PO HS Zofran (Ondansetron Hcl) 4 Mg Tablet 1 Tab PO PRN Q6HRS PRN Omeprazole 40 Mg Capsule. 1 Cap PO BID Vitals/I & O Vital Sign - Last 24 Hours 11/09/16 11/09/16 11/09/16 11/09/16 13:16 15:29 15:33 17:48 Temp 98.5 98.6 98.5 98.6 Pulse 69 109 Resp 15 15 18 B/P 117/63 117/63 111/62 87/60 Pulse Ox 99 99 97 97 O2 Delivery Room Air Room Air Room Air Room Air 11/09/16 11/09/16 11/09/16 11/09/16 19:15 19:53 20:00 20:15 Temp 98.1 98.1 Pulse 69 Resp 18 16 18 B/P 97/80 Pulse Ox 97 O2 Delivery Room Air Room Air Room Air Room Air 11/09/16 11/09/16 11/09/16 11/10/16 22:13 22:40 23:06 03:16 Temp 97.7 97.7 Pulse 65 Resp 16 18 16 15 B/P 95/51 Pulse Ox 97 O2 Delivery Room Air Room Air Room Air 11/10/16 11/10/16 11/10/16 11/10/16 03:44 07:00 08:00 08:12 Temp 97.5 97.7 97.5 97.7 Pulse 57 60 Resp 16 18 B/P 96/54 102/69 Pulse Ox 96 100 O2 Delivery Room Air Room Air Room Air Room Air 11/10/16 11/10/16 09:53 11:00 Temp 97.8 97.8 Pulse 54 Resp 16 B/P 98/56 Pulse Ox 100 100 O2 Delivery Room Air Room Air Intake and Output 11/09/16 11/09/16 11/10/16 14:59 22:59 06:59 Intake Total 200 ml 580 ml Balance 200 ml 580 ml CURT COOL MD Nov 10, 2016 12:33
[2016-11-10] MEDS: HYDROCODONE/APAP 5/325MG TABLET. PO PRN (13:03)
[2016-11-10] MEDS ORDERED: FERR-26 PO (13:08)
[2016-11-10] MEDS ORDERED: ACETAMINOPHEN 325 MG TABLET. PO PRN (13:22)
--- NOTE | 2016-11-10 14:17 | PDOC ---
Provider Note Provider Note SURG Pt seen walking the halls no c/o no surgical recs will sign off please call if needed Thank you WILLIE MEDINA MD Nov 10, 2016 14:17
[2016-11-10 14:57] VITALS: BP 106/60
== END 2016-11-10 17:00 | disposition home or self-care (01) | DRG 378 ==
LOC: ER 17:06 → 6 SOUTH 20:00
PROVIDERS: ADMIT Internal Medicine; ATTEND Internal Medicine
PROC: 30233N1 Transfusion of Nonautologous Red Blood Cells into Peripheral Vein, Percutaneous Approach (ICD-10-PCS; 2016-11-08)
PROC: 0DJ08ZZ Inspection of Upper Intestinal Tract, Via Natural or Artificial Opening Endoscopic (ICD-10-PCS; principal; 2016-11-08 12:00)
DX: K92.2 Gastrointestinal hemorrhage, unspecified (principal); D62 Acute posthemorrhagic anemia; F32.9 Major depressive disorder, single episode, unspecified; D50.9 Iron deficiency anemia, unspecified; F41.9 Anxiety disorder, unspecified; K21.9 Gastro-esophageal reflux disease without esophagitis; K29.70 Gastritis, unspecified, without bleeding; K57.90 Diverticulosis of intestine, part unspecified, without perforation or abscess without bleeding; F12.90 Cannabis use, unspecified, uncomplicated; G89.29 Other chronic pain; Z88.5 Allergy status to narcotic agent; Z87.11 Personal history of peptic ulcer disease; Z90.49 Acquired absence of other specified parts of digestive tract; Z98.84 Bariatric surgery status; Z88.8 Allergy status to other drugs, medicaments and biological substances
CPT/HCPCS: 36415; 74177; 78278; 80048; 80053; 81001; 82274; 83540; 83550; 83690; 85027; 85610; 85730; 86850; 86900; 86901; 86920; 93005; 96361; 96374; 96375; 96376; A9560; C9113; G0481; J2405; J2704; J3010; J7030; J7120; Q0162; Q9967; 99285-25

== ENCOUNTER 2016-11-13 14:34 | Inpatient (IN) | payer OTHER, MEDICARE ==
[~2016-11-13] VITALS: Ht 172.7 cm; Wt 70.8 kg
[~2016-11-13 14:34] MED LIST changes: +DIVA500T2 PO; +FERR-26 PO; +OLAN10TA3 PO; +OMEP40CA5 PO; +ONDA4TAB7 PO; +SERT50TA PO; +ZOLP10TA PO
[2016-11-13] MEDS ORDERED: IV NORMAL SALINE 1000ML BAG 1,000 ML IV ONE (15:15)
[2016-11-13 15:17] LABS: BASO % 1 % (0-3); EOS % 1 % (0-3); HEMATOCRIT 28.7 % (36.0-47.0); LYMPH % 15 % (24-48); MEAN CORPUSCULAR HEMOGLOBIN 25 pg (25-35); MEAN CORPUSCULAR HGB CONC 31 g/dL (31-37); MEAN CORPUSCULAR VOLUME 80 fL (79-100); MONO % 6 % (0-9); NEUT % 78 % (31-73); PLATELET COUNT 300 x10^3/uL (140-400); RED BLOOD COUNT 3.59 x10^6/uL (3.50-5.40); RED CELL DISTRIBUTION WIDTH 18.1 % (11.5-14.5); WHITE BLOOD COUNT 6.7 x10^3/uL (4.0-11.0)
[2016-11-13 15:17] LABS: BILIRUBIN,URINE NEGATIVE (NEG); GLUCOSE,URINE NEGATIVE (NEG); NITRITE,URINE NEGATIVE (NEG); PROTEIN,URINE NEGATIVE (NEG-TRACE); UROBILINOGEN,URINE 0.2 mg/dL (0.2 mg/dL)
[2016-11-13] MEDS: HYDROMORPHONE 2 MG/ML VIAL. IV PRN ×4 (15:32→23:31)
[2016-11-13] MEDS: ONDANSETRON PF 4 MG/2 ML VIAL. IV PRN ×2 (15:33→16:37)
[2016-11-13 15:36] LABS: CALCIUM 8.8 mg/dL (8.5-10.1); CREATININE 0.8 mg/dL (0.6-1.0); POTASSIUM 3.6 mmol/L (3.5-5.1)
[2016-11-13 15:43] LABS: ALBUMIN 4.2 g/dL (3.4-5.0); ALBUMIN/GLOBULIN RATIO 1.2 (1.0-1.7); TOTAL BILIRUBIN 0.2 mg/dL (0.2-1.0); TOTAL PROTEIN 7.8 g/dL (6.4-8.2)
[2016-11-13 15:43] LABS: BACTERIA,URINE 0 /HPF (0-FEW); RBC,URINE 0 /HPF (0-2); SQUAMOUS EPITHELIAL CELL,UR FEW /LPF; WBC,URINE OCC /HPF (0-4)
[2016-11-13 16:04] LABS: NEG OBC FOB NEG; POS OBC FOB POS
[2016-11-13] MEDS: IV NORMAL SALINE 1000ML BAG 1,000 ML IV SCH (16:05)
--- NOTE | 2016-11-13 16:05 | PHYS DOC ---
Past Medical History Past Medical History: Depression, GERD, Other Additional Past Medical Histor: ulcer, diverticulosis, chronic abd pain Past Surgical History: Appendectomy, Cholecystectomy, Gastric Bypass, Other Additional Past Surgical Histo: hernia, ovari cyst, low body lift, 3 abd laps, 2 peg tubes, reversal, PORT Alcohol Use: None Drug Use: Marijuana Adult General Chief Complaint Chief Complaint: ABDOMINAL PAIN HPI HPI 41-year-old female with a history of gastric bypass surgery who presents the emergency department today with abdominal pain that is nonlocalized. The pain is moderate radiates down to the left lower quadrant intermittent and without alleviating factors. She also has nausea and vomiting her vomitus is nonbilious and nonbloody. She does report blood in her stools. It is bright red. She has a history of GI bleeds in the past and has been taken off all NSAIDs due to history of gastric ulcers. Review of systems is negative for chest pain shortness of breath fevers chills. All other review of systems is negative unless otherwise noted in history of present illness. Review of Systems Review of Systems SEE ABOVE. Current Medications Current Medications Current Medications Medications (Trade) Dose Ordered Sig/Carol Start Time Stop Time Status Last Admin Dose Admin Hydromorphone HCl (Dilaudid) 0.5 mg PRN Q1HR PRN 11/13/16 15:30 11/13/16 15:32 0.5 MG Ondansetron HCl (Zofran) 4 mg PRN Q30MIN PRN 11/13/16 15:30 11/13/16 15:33 4 MG Sodium Chloride (Iv Sodium Chloride 0.9% 1000ml Bag) 1,000 ml @ 1,000 mls/hr 1X ONCE 11/13/16 15:15 11/13/16 16:14 11/13/16 15:15 1,000 MLS/HR Allergies Allergies Allergies Coded Allergies Type Severity Reaction Last Updated Verified diphenhydramine Allergy Severe hallucinations/ams 11/08/16 Yes promethazine Allergy Severe confusion/ams 11/08/16 Yes sumatriptan Allergy Severe ANAPHYLAXIS 11/08/16 Yes haloperidol Allergy Intermediate 11/08/16 No morphine Allergy Intermediate HIVES 06/07/14 Yes NSAIDS (Non-Steroidal Anti-Inflamma Adverse Reaction Severe bleeding. 06/04/14 Yes metoclopramide Adverse Reaction Mild 11/07/16 Yes prochlorperazine Adverse Reaction Mild 11/07/16 Yes Physical Exam Physical Exam Constitutional: Well developed, well nourished, patient appears to be in a mild amount of pain.nontoxic in apperance. HENT: Normocephalic, atraumatic, bilateral external ears normal, oropharynx moist, no oral exudates, nose normal. [] Eyes: PERRLA, EOMI, conjunctiva normal, no discharge. Neck: Normal range of motion, no tenderness, supple, no stridor. [] Cardiovascular:Heart rate regular rhythm, no murmur Lungs & Thorax: Bilateral breath sounds clear to auscultation Abdomen: Abdomen is soft and nontender. No rebound tenderness or guarding is present. Negative Field sign. Negative McBurney's point. Skin: Warm, dry, no erythema, no rash. Back: No tenderness, no CVA tenderness. [] Extremities: No tenderness, no cyanosis, no clubbing, ROM intact, no edema. [] Neurologic: Alert and oriented X 3, normal motor function, normal sensory function, no focal deficits noted. Psychologic: Affect normal, judgement normal, mood normal. Current Patient Data Vital Signs Vital Signs Date Time Temp Pulse Resp B/P Pulse Ox O2 Delivery O2 Flow Rate FiO2 11/13/16 15:32 18 11/13/16 15:26 92 123/64 99 Room Air 11/13/16 15:03 98.6 98.6 Lab Values Laboratory Tests Test 11/13/16 14:30 11/13/16 14:55 Urine Collection Type Unknown Urine Color Yellow Urine Clarity Clear Urine pH 7.0 Urine Specific [place] 1.015 Urine Protein Negativemg/dL (NEG-TRACE) Urine Glucose (UA) Negativemg/dL (NEG) Urine Ketones (Stick) Negativemg/dL (NEG) Urine Blood Negative (NEG) Urine Nitrite Negative (NEG) Urine Bilirubin Negative (NEG) Urine Urobilinogen Dipstick 0.2mg/dL (0.2 mg/dL) Urine Leukocyte Esterase Negative (NEG) Urine RBC 0/HPF (0-2) Urine WBC Occ/HPF (0-4) Urine Squamous Epithelial Cells Few/LPF Urine Bacteria 0/HPF (0-FEW) White Blood Count 6.7x10^3/uL (4.0-11.0) # Red Blood Count 3.59x10^6/uL (3.50-5.40) Hemoglobin 9.0g/dL (12.0-15.5) L Hematocrit 28.7% (36.0-47.0) L Mean Corpuscular Volume 80fL (79-100) Mean Corpuscular Hemoglobin 25pg (25-35) Mean Corpuscular Hemoglobin Concent 31g/dL (31-37) Red Cell Distribution Width 18.1% (11.5-14.5) H Platelet Count 300x10^3/uL (140-400) Neutrophils (%) (Auto) 78% (31-73) H Lymphocytes (%) (Auto) 15% (24-48) L Monocytes (%) (Auto) 6% (0-9) Eosinophils (%) (Auto) 1% (0-3) Basophils (%) (Auto) 1% (0-3) Neutrophils # (Auto) 5.2x10^3uL (1.8-7.7) Lymphocytes # (Auto) 1.0x10^3/uL (1.0-4.8) Monocytes # (Auto) 0.4x10^3/uL (0.0-1.1) Eosinophils # (Auto) 0.0x10^3/uL (0.0-0.7) Basophils # (Auto) 0.0x10^3/uL (0.0-0.2) Sodium Level 140mmol/L (136-145) Potassium Level 3.6mmol/L (3.5-5.1) Chloride Level 103mmol/L (98-107) Carbon Dioxide Level 24mmol/L (21-32) Anion Gap 13 (6-14) Blood Urea Nitrogen 20mg/dL (7-20) Creatinine 0.8mg/dL (0.6-1.0) Estimated GFR (Cockcroft-Gault) 79.0 BUN/Creatinine Ratio 25 (6-20) H Glucose Level 112mg/dL (70-99) H Calcium Level 8.8mg/dL (8.5-10.1) Total Bilirubin 0.2mg/dL (0.2-1.0) Aspartate Amino Transferase (AST) 12U/L (15-37) L Alanine Aminotransferase (ALT) 20U/L (14-59) Alkaline Phosphatase 89U/L (46-116) Total Protein 7.8g/dL (6.4-8.2) Albumin 4.2g/dL (3.4-5.0) Albumin/Globulin Ratio 1.2 (1.0-1.7) Lipase 80U/L (73-393) Laboratory Tests 11/13/16 14:55 Laboratory Tests 11/13/16 14:55 EKG EKG [] Radiology/Procedures Radiology/Procedures [] Course & Med Decision Making Course & Med Decision Making Pertinent Labs and Imaging studies reviewed. (See chart for details) [] 41-year-old female presenting the emergency department with abdominal pain and reported body stools. Initially the patient's vital signs showed her to be tachycardic. Pertinent physical exam findings showed a nontender abdomen. Rectal exam showed gross bright red blood mixed with stool without hemorrhoids or fissures. She was given IV fluids nausea and pain medications in the emergency department however on reevaluation was not feeling better. Blood work was obtained which was remarkable for a chronic anemia. Otherwise urinalysis negative and chemistry panel unremarkable. The patient was then admitted to our hospital for further evaluation workup and care. GI consult placed. Dragon Disclaimer Dragon Disclaimer This electronic medical record was generated, in whole or in part, using a voice recognition dictation system. Departure Departure Impression: Primary Impression: Abdominal pain Additional Impressions: GI (gastrointestinal bleed) Nausea and vomiting Disposition: ADMITTED INPATIENT Admitting Physician: Rebeka Erwin Condition: IMPROVED Referrals: FEDE WILKERSON DO (PCP) Problem Qualifiers ASHISH VALDEZ MD Nov 13, 2016 16:05
[2016-11-13] MEDS ORDERED: ONDANSETRON PF 4 MG/2 ML VIAL. IV PRN ×2 (16:15→16:30)
--- NOTE | 2016-11-13 16:29 | PDOC1 ---
History and Physical Date of Admission Date of Admission 11/13/16 Identification/Chief Complaint Chief Complaint LLQ abd pain Problems: Source Source: Chart review, Patient History of Present Illness History of Present Illness HPI HPI 41-year-old female with a history of gastric bypass surgery who presents the emergency department today with LLQ abd pain for [address] ERP dr. Armenta nor pt told me she was JUST dced 3 days ago. Pt said she has severe multiple gastric sx since her bypass sx for complications , usually has epigastric pain. She started to have LLQ pain 1 week ago ,with N/V , some bloody stool, for which she came here on 11/07 , did EGD which showed non erosive gastritis, CT was ok, neg bleeding scan. Pt got 2u PRBC transfusion. No NSAIDS taken. She said she is allergic to morphine, but ok to take dilaudid and fentanyl. Hb 9 , better than dced. Past Medical History Past Medical History Depression, GERD, Other Additional Past Medical Histor: ulcer, diverticulosis, chronic abd pain Past Surgical History Past Surgical History Appendectomy, Cholecystectomy, Gastric Bypass, Other Additional Past Surgical Histo: hernia, ovari cyst, low body lift, 3 abd laps, 2 peg tubes, reversal, PORT Family History Family History: No Significant Social History Smoke: <1 pack per day ALCOHOL: social Drugs: Marijuana Current Problem List Problem List Problems Medical Problems: (1) Abdominal pain Status: Acute (2) GI (gastrointestinal bleed) Status: Acute (3) Nausea and vomiting Status: Acute Current Medications Current Medications Current Medications Medications (Trade) Dose Ordered Sig/Carol Start Time Stop Time Status Last Admin Dose Admin Acetaminophen/ Hydrocodone Bitart (Lortab 5/325) 1 tab PRN Q6HRS PRN 11/13/16 16:30 UNV Divalproex Sodium (Depakote) 500 mg BID 11/13/16 21:00 UNV Ferrous Sulfate (Feosol) 325 mg DAILY 11/14/16 09:00 UNV Hydromorphone HCl (Dilaudid) 0.5 mg PRN Q1HR PRN 11/13/16 15:30 11/13/16 15:32 0.5 MG Hyoscyamine (Anaspaz) 0.125 mg PRN Q4HRS PRN 11/13/16 16:30 UNV Non-Formulary Medication 1 tab QHS 11/13/16 21:00 UNV Ondansetron HCl (Zofran) 4 mg PRN Q30MIN PRN 11/13/16 15:30 11/13/16 15:33 4 MG Ondansetron HCl 4 mg 4 mg PRN Q8HRS PRN 11/13/16 16:15 11/14/16 16:14 Pantoprazole Sodium (Protonix) 40 mg BIDAC 11/13/16 16:30 UNV Sertraline HCl (Zoloft) 50 mg HS 11/13/16 21:00 UNV Sodium Chloride (Iv Sodium Chloride 0.9% 1000ml Bag) 1,000 ml @ 125 mls/hr Q8H 11/13/16 16:05 11/14/16 16:04 Sucralfate (Carafate) 1 gm QID 11/13/16 17:00 UNV Allergies Allergies Allergies Coded Allergies Type Severity Reaction Last Updated Verified diphenhydramine Allergy Severe hallucinations/ams 11/08/16 Yes promethazine Allergy Severe confusion/ams 11/08/16 Yes sumatriptan Allergy Severe ANAPHYLAXIS 11/08/16 Yes haloperidol Allergy Intermediate 11/08/16 No morphine Allergy Intermediate HIVES 06/07/14 Yes NSAIDS (Non-Steroidal Anti-Inflamma Adverse Reaction Severe bleeding. 06/04/14 Yes metoclopramide Adverse Reaction Mild 11/07/16 Yes prochlorperazine Adverse Reaction Mild 11/07/16 Yes ROS Review of System CONSTITUTIONAL: No fever or chills EYES: No recent changes SKIN: No rash or itching CARDIOVASCULAR: No chest pain, syncope, palpitations, or edema RESPIRATORY: No SOB or cough GASTROINTESTINAL: No nausea, vomiting or abdominal pain NEUROLOGICAL: No headaches or weakness ENDOCRINE: No cold or heat intolerance GENITOURINARY: No urgency or frequency of urination MUSCULOSKELETAL: No back pain or joint pain LYMPHATICS: No enlarged lymph nodes PSYCHIATRIC: No anxiety or depression Physical Exam Physical Exam GEN.: No apparent distress. Alert and oriented. HEENT: Head is normocephalic, atraumatic NECK: Supple. right upper chest port for IV access. LUNGS: Clear to auscultation. HEART: RRR, S1, S2 present. Peripheral pulses intact ABDOMEN: Soft, Positive bowel sounds. mild LLQ tenderness. EXTREMITIES: Without any cyanosis. NEUROLOGIC: Normal speech, normal tone PSYCHIATRIC: Normal affect, normal mood. SKIN: No ulcerations Vitals Vitals Vital Signs Date Time Temp Pulse Resp B/P Pulse Ox O2 Delivery O2 Flow Rate FiO2 11/13/16 15:56 83 17 130/69 98 Room Air 11/13/16 15:03 98.6 98.6 Labs Labs Laboratory Tests Test 11/13/16 14:30 11/13/16 14:55 11/13/16 15:50 Urine Collection Type Unknown Urine Color Yellow Urine Clarity Clear Urine pH 7.0 Urine Specific [place] 1.015 Urine Protein Negativemg/dL (NEG-TRACE) Urine Glucose (UA) Negativemg/dL (NEG) Urine Ketones (Stick) Negativemg/dL (NEG) Urine Blood Negative (NEG) Urine Nitrite Negative (NEG) Urine Bilirubin Negative (NEG) Urine Urobilinogen Dipstick 0.2mg/dL (0.2 mg/dL) Urine Leukocyte Esterase Negative (NEG) Urine RBC 0/HPF (0-2) Urine WBC Occ/HPF (0-4) Urine Squamous Epithelial Cells Few/LPF Urine Bacteria 0/HPF (0-FEW) White Blood Count 6.7x10^3/uL (4.0-11.0) Red Blood Count 3.59x10^6/uL (3.50-5.40) Hemoglobin 9.0g/dL (12.0-15.5) Hematocrit 28.7% (36.0-47.0) Mean Corpuscular Volume 80fL (79-100) Mean Corpuscular Hemoglobin 25pg (25-35) Mean Corpuscular Hemoglobin Concent 31g/dL (31-37) Red Cell Distribution Width 18.1% (11.5-14.5) Platelet Count 300x10^3/uL (140-400) Neutrophils (%) (Auto) 78% (31-73) Lymphocytes (%) (Auto) 15% (24-48) Monocytes (%) (Auto) 6% (0-9) Eosinophils (%) (Auto) 1% (0-3) Basophils (%) (Auto) 1% (0-3) Neutrophils # (Auto) 5.2x10^3uL (1.8-7.7) Lymphocytes # (Auto) 1.0x10^3/uL (1.0-4.8) Monocytes # (Auto) 0.4x10^3/uL (0.0-1.1) Eosinophils # (Auto) 0.0x10^3/uL (0.0-0.7) Basophils # (Auto) 0.0x10^3/uL (0.0-0.2) Sodium Level 140mmol/L (136-145) Potassium Level 3.6mmol/L (3.5-5.1) Chloride Level 103mmol/L (98-107) Carbon Dioxide Level 24mmol/L (21-32) Anion Gap 13 (6-14) Blood Urea Nitrogen 20mg/dL (7-20) Creatinine 0.8mg/dL (0.6-1.0) Estimated GFR (Cockcroft-Gault) 79.0 BUN/Creatinine Ratio 25 (6-20) Glucose Level 112mg/dL (70-99) Calcium Level 8.8mg/dL (8.5-10.1) Total Bilirubin 0.2mg/dL (0.2-1.0) Aspartate Amino Transf (AST/SGOT) 12U/L (15-37) Alanine Aminotransferase (ALT/SGPT) 20U/L (14-59) Alkaline Phosphatase 89U/L (46-116) Total Protein 7.8g/dL (6.4-8.2) Albumin 4.2g/dL (3.4-5.0) Albumin/Globulin Ratio 1.2 (1.0-1.7) Lipase 80U/L (73-393) Stool Occult Blood Positive (NEG) Laboratory Tests Test 11/13/16 14:30 11/13/16 14:55 11/13/16 15:50 Urine Collection Type Unknown Urine Color Yellow Urine Clarity Clear Urine pH 7.0 Urine Specific [place] 1.015 Urine Protein Negativemg/dL (NEG-TRACE) Urine Glucose (UA) Negativemg/dL (NEG) Urine Ketones (Stick) Negativemg/dL (NEG) Urine Blood Negative (NEG) Urine Nitrite Negative (NEG) Urine Bilirubin Negative (NEG) Urine Urobilinogen Dipstick 0.2mg/dL (0.2 mg/dL) Urine Leukocyte Esterase Negative (NEG) Urine RBC 0/HPF (0-2) Urine WBC Occ/HPF (0-4) Urine Squamous Epithelial Cells Few/LPF Urine Bacteria 0/HPF (0-FEW) White Blood Count 6.7x10^3/uL (4.0-11.0) Red Blood Count 3.59x10^6/uL (3.50-5.40) Hemoglobin 9.0g/dL (12.0-15.5) Hematocrit 28.7% (36.0-47.0) Mean Corpuscular Volume 80fL (79-100) Mean Corpuscular Hemoglobin 25pg (25-35) Mean Corpuscular Hemoglobin Concent 31g/dL (31-37) Red Cell Distribution Width 18.1% (11.5-14.5) Platelet Count 300x10^3/uL (140-400) Neutrophils (%) (Auto) 78% (31-73) Lymphocytes (%) (Auto) 15% (24-48) Monocytes (%) (Auto) 6% (0-9) Eosinophils (%) (Auto) 1% (0-3) Basophils (%) (Auto) 1% (0-3) Neutrophils # (Auto) 5.2x10^3uL (1.8-7.7) Lymphocytes # (Auto) 1.0x10^3/uL (1.0-4.8) Monocytes # (Auto) 0.4x10^3/uL (0.0-1.1) Eosinophils # (Auto) 0.0x10^3/uL (0.0-0.7) Basophils # (Auto) 0.0x10^3/uL (0.0-0.2) Sodium Level 140mmol/L (136-145) Potassium Level 3.6mmol/L (3.5-5.1) Chloride Level 103mmol/L (98-107) Carbon Dioxide Level 24mmol/L (21-32) Anion Gap 13 (6-14) Blood Urea Nitrogen 20mg/dL (7-20) Creatinine 0.8mg/dL (0.6-1.0) Estimated GFR (Cockcroft-Gault) 79.0 BUN/Creatinine Ratio 25 (6-20) Glucose Level 112mg/dL (70-99) Calcium Level 8.8mg/dL (8.5-10.1) Total Bilirubin 0.2mg/dL (0.2-1.0) Aspartate Amino Transf (AST/SGOT) 12U/L (15-37) Alanine Aminotransferase (ALT/SGPT) 20U/L (14-59) Alkaline Phosphatase 89U/L (46-116) Total Protein 7.8g/dL (6.4-8.2) Albumin 4.2g/dL (3.4-5.0) Albumin/Globulin Ratio 1.2 (1.0-1.7) Lipase 80U/L (73-393) Stool Occult Blood Positive (NEG) VTE Prophylaxis Ordered VTE Prophylaxis Devices: Yes VTE Pharmacological Prophylaxi: No Assessment/Plan Assessment/Plan 1. Abdominal pain LLQ, WITH + FOBT, diverticulitis? 2. recent EGD showed non erosive gastritis 3. Prior history of gastric bypass surgeries with anastomotic ulcers. 4. Intractable nausea 5. chronic epigastric pain from sx history 6. GERD 7. drug abuse with marijuana 8. Anxiety /Depression, Stable plan: need to be cautious if pt is drug seeker, check US ABD gi consult NPO IVF pain control on PPI protonix bid, sucralfate MISTY HUNT MD Nov 13, 2016 16:29
[2016-11-13] MEDS ORDERED: ACETAMINOPHEN 325 MG TABLET. PO PRN (16:30)
[2016-11-13] MEDS ORDERED: HYOSCYAMINE 0.125 MG TAB.RAPDIS PO PRN (16:30)
--- NOTE | 2016-11-13 17:11 | RAD ---
PROCEDURE Abdomen sonogram complete. HISTORY Pain. TECHNIQUE Sonographic imaging of the abdomen was performed. COMPARISON CT dated 11/07/2016. FINDINGS The liver is normal in size. No focal hepatic lesion is seen. The gallbladder is surgically absent. The common bile duct is dilated to a caliber of 8.1 mm. The kidneys are unremarkable. The pancreas, aorta and inferior cava are partially obscured due to bowel gas. The spleen is normal in size. IMPRESSION 1. Common bile duct dilatation, possibly due to reservoir effect status post cholecystectomy. MRCP or ERCP can be performed if there is concern for distal obstructing process. 2. Partially obscured pancreas, aorta and inferior vena cava due to bowel gas. Electronically signed by: Aleta Hurd (Nov 13, 2016 17:10:21)
[2016-11-13] MEDS ORDERED: ONDANSETRON ODT 4 MG TAB.RAPDIS. PO PRN (17:15)
[2016-11-13] MEDS ORDERED: ZOLPIDEM 5 MG TABLET. PO PRN (17:15)
[2016-11-13 17:37] VITALS: BP 119/68
[2016-11-13] MEDS ORDERED: PEG 3350/NA SULF,BICARB,CL/KCL 4,000 ML SOLUTION. PO ONE (18:00)
[2016-11-13] MEDS: HYDROCODONE/APAP 5/325MG TABLET. PO PRN (18:09)
[2016-11-13] MEDS: PANTOPRAZOLE 40 MG TABLET.DR. PO SCH (18:09)
--- NOTE | 2016-11-13 18:20 | ACF ---
Admission Forms Criteria ABDOMINAL PAIN Clinical Indications for Admission to Inpatient Care (Place 'X' for any and all applicable criteria): Admission is indicated for ANY ONE of the following(1)(2)(3)(4)(5): [X]I. Inpatient admission required rather than observation care (Also use Abdominal Pain: Observation Care, as appropriate) because of ANY ONE of the following: [ ]a) Severe pain requiring acute inpatient management [X]b) Identification of etiology/finding that requires inpatient care (eg, aortic dissection, free air) [ ]c) Absent bowel sounds with complete ileus(6) [ ]d) Suspected toxic megacolon [ ]e) Severe electrolyte abnormalities requiring inpatient care [ ]f) High fever or infection requiring inpatient admission as indicated by ANY ONE of following(7)(8): [ ] i) Appropriate outpatient or observational care antimicrobial treatment unavailable, not effective, or not feasible [ ] ii) Documented bacteremia [ ] iii) Temperature > 104.9 degrees F (oral) [ ] iv) T >103.1 F (oral) or < 96.8 F(rectal) that does not respond to all emergency treatment measures [ ]g) Signs of intestinal obstruction [B] [ ]h) Hemodynamic instability [ ]i) IV fluid to replace significant ongoing losses (greater than 3 L/m2 per day) (12)(13) [ ]j) Percutaneous or open drainage (eg, abscess, biliary tract ) procedures [ ]k) Parenteral nutrition regimen that must be implemented on inpatient basis [ ]l) Other condition,treatment or monitoring requiring inpatient admission. [ ]II. Peritoneal signs present [ ]III. Surgery needed that cannot be performed on an ambulatory basis. [ ]IV. Evaluation requires patient to not eat or drink for extended period ( eg, more than 24 hours). [ ]V. Contraindications and/or Inappropriate clinical situations for Observational Care in patients with abdominal pain, when ANY ONE of the following is required: [ ]a) Thorough evaluation is required to prevent catastrophic events due to delays in diagnosing (e.g.Mesenteric ischemia) 1,3 [ ]b) Patient with severe pathology or with chronic symptoms unlikely to improve in the ED stay (3) [ ]. General contraindications and/or Inappropriate clinical situations for Observational Care in patients with abdominal pain, when ANY ONE of the following is required: [ ]a) Prediction of prolongation of LOS based on ANY ONE of the following may be considered as a contraindication for observational care 2, 3, 4, 5, 6, 7, 8, 9, 10, 11 [ ]i) Age > 65 yrs. [ ]ii) Patient arriving by ambulance [ ]iii) Patient with high acuity [ ]iv) Patient requiring vital sign monitoring [ ]v) Patient on IV medication [ ]b) Systolic blood pressures 180mmHg 3,12 [ ]c) Patient with altered mental status including delirium and other alteration of consciousness, (3) [ ]d) Patient whose discharge disposition will be to a retirement home or rehabilitation home should not be managed in Emergency Department Observation Unit. CMS rule requires 3 days hospital stay before such placement.3,13 [ ]e) Patient with failure to thrive due to broad array of etiologies 3,16,17 [ ]f) Inability to ambulate 3,14 Extended stay beyond goal length of stay may be needed for(2)(3): [ ]a) Persistent abdominal pain with suspected intra-abdominal process [ ]b) Diagnosed condition requiring continued stay (e.g., pancreatitis, complicated diverticulitis) [ ]c) Surgery (e.g., colectomy) The original [facility] content created by [employer] has been revised. The portions of the content which have been revised are identified through the use of italic text or in bold, and [facility] has neither reviewed nor approved the modified material.All other unmodified content is copyright [employer]. Please see references footnoted in the original [facility] edition 2016 Admission Criteria Met?: Yes REJI ZAMUDIO Nov 13, 2016 18:20
[2016-11-13] MEDS ORDERED: HYDROMORPHONE 2 MG/ML VIAL. IV PRN (18:45)
[2016-11-13 19:00] VITALS: BP 117/76
[2016-11-13] MEDS ORDERED: NON FORMULARY ITEM (Omeprazole 1 CAP) PO SCH (21:00)
[2016-11-13] MEDS: DIVALPROEX DELAYED RELEASE 500 MG TABLET.DR. PO SCH (21:00)
[2016-11-13] MEDS: SUCRALFATE 1 GM TABLET. PO SCH (21:00)
[2016-11-13] MEDS: OLANZAPINE 5 MG TABLET. PO SCH (21:16)
[2016-11-13] MEDS: SERTRALINE 50 MG TABLET. PO SCH (21:17)
[2016-11-13 22:38] VITALS: BP 128/91
[2016-11-14] MEDS: IV NORMAL SALINE 1000ML BAG 1,000 ML IV SCH ×2 (00:52→09:00)
[2016-11-14] MEDS: HYDROMORPHONE 2 MG/ML VIAL. IV PRN ×7 (02:31→21:59)
[2016-11-14 06:03] LABS: BASO % 1 % (0-3); EOS % 3 % (0-3); HEMATOCRIT 25.2 % (36.0-47.0); HEMOGLOBIN 7.9 g/dL (12.0-15.5); LYMPH # 1.4 x10^3/uL (1.0-4.8); LYMPH % 34 % (24-48); MEAN CORPUSCULAR HEMOGLOBIN 25 pg (25-35); MEAN CORPUSCULAR HGB CONC 31 g/dL (31-37); MEAN CORPUSCULAR VOLUME 81 fL (79-100); MONO % 10 % (0-9); NEUT % 53 % (31-73); PLATELET COUNT 217 x10^3/uL (140-400); RED BLOOD COUNT 3.13 x10^6/uL (3.50-5.40); RED CELL DISTRIBUTION WIDTH 18.2 % (11.5-14.5); WHITE BLOOD COUNT 4.1 x10^3/uL (4.0-11.0)
[2016-11-14 06:18] LABS: CREATININE 0.7 mg/dL (0.6-1.0); GFR 92.2; POTASSIUM 4.2 mmol/L (3.5-5.1)
[2016-11-14 07:50] VITALS: BP 133/72
[2016-11-14] MEDS: SUCRALFATE 1 GM TABLET. PO SCH ×4 (09:01→21:18)
[2016-11-14] MEDS: FERROUS SULFATE 325 MG TABLET. PO SCH (09:02)
[2016-11-14] MEDS: DIVALPROEX DELAYED RELEASE 500 MG TABLET.DR. PO SCH ×2 (09:02→21:19)
[2016-11-14] MEDS: PANTOPRAZOLE 40 MG TABLET.DR. PO SCH ×2 (09:02→17:01)
--- NOTE | 2016-11-14 09:36 | PDOC ---
Subjective: Subjective: Readmitted. LLQ pain, vomiting, dark red stool 6-[address] 11/07: unrevealing for acute issue EGD 11/08: s/p gastric bypass reversal, non-erosive gastritis GI bleed scan 11/08: neg Objective: Vital Signs: Vital Signs Date Time Temp Pulse Resp B/P Pulse Ox O2 Delivery O2 Flow Rate FiO2 11/14/16 07:50 97.6 87 18 133/72 99 Room Air 97.6 Labs: Laboratory Tests Test 11/13/16 13:47 11/13/16 14:30 11/13/16 14:55 11/13/16 15:50 Bedside Urine HCG, Qualitative Hcg negative Urine Collection Type Unknown Urine Color Yellow Urine Clarity Clear Urine pH 7.0 Urine Specific [place] 1.015 Urine Protein Negativemg/dL Urine Glucose (UA) Negativemg/dL Urine Ketones (Stick) Negativemg/dL Urine Blood Negative Urine Nitrite Negative Urine Bilirubin Negative Urine Urobilinogen Dipstick 0.2mg/dL Urine Leukocyte Esterase Negative Urine RBC 0/HPF Urine WBC Occ/HPF Urine Squamous Epithelial Cells Few/LPF Urine Bacteria 0/HPF White Blood Count 6.7x10^3/uL Red Blood Count 3.59x10^6/uL Hemoglobin 9.0g/dL Hematocrit 28.7% Mean Corpuscular Volume 80fL Mean Corpuscular Hemoglobin 25pg Mean Corpuscular Hemoglobin Concent 31g/dL Red Cell Distribution Width 18.1% Platelet Count 300x10^3/uL Neutrophils (%) (Auto) 78% Lymphocytes (%) (Auto) 15% Monocytes (%) (Auto) 6% Eosinophils (%) (Auto) 1% Basophils (%) (Auto) 1% Neutrophils # (Auto) 5.2x10^3uL Lymphocytes # (Auto) 1.0x10^3/uL Monocytes # (Auto) 0.4x10^3/uL Eosinophils # (Auto) 0.0x10^3/uL Basophils # (Auto) 0.0x10^3/uL Sodium Level 140mmol/L Potassium Level 3.6mmol/L Chloride Level 103mmol/L Carbon Dioxide Level 24mmol/L Anion Gap 13 Blood Urea Nitrogen 20mg/dL Creatinine 0.8mg/dL Estimated GFR (Cockcroft-Gault) 79.0 BUN/Creatinine Ratio 25 Glucose Level 112mg/dL Calcium Level 8.8mg/dL Total Bilirubin 0.2mg/dL Aspartate Amino Transf (AST/SGOT) 12U/L Alanine Aminotransferase (ALT/SGPT) 20U/L Alkaline Phosphatase 89U/L Total Protein 7.8g/dL Albumin 4.2g/dL Albumin/Globulin Ratio 1.2 Lipase 80U/L Stool Occult Blood Positive Test 11/14/16 05:50 White Blood Count 4.1x10^3/uL Red Blood Count 3.13x10^6/uL Hemoglobin 7.9g/dL Hematocrit 25.2% Mean Corpuscular Volume 81fL Mean Corpuscular Hemoglobin 25pg Mean Corpuscular Hemoglobin Concent 31g/dL Red Cell Distribution Width 18.2% Platelet Count 217x10^3/uL Neutrophils (%) (Auto) 53% Lymphocytes (%) (Auto) 34% Monocytes (%) (Auto) 10% Eosinophils (%) (Auto) 3% Basophils (%) (Auto) 1% Neutrophils # (Auto) 2.2x10^3uL Lymphocytes # (Auto) 1.4x10^3/uL Monocytes # (Auto) 0.4x10^3/uL Eosinophils # (Auto) 0.1x10^3/uL Basophils # (Auto) 0.0x10^3/uL Sodium Level 143mmol/L Potassium Level 4.2mmol/L Chloride Level 109mmol/L Carbon Dioxide Level 26mmol/L Anion Gap 8 Blood Urea Nitrogen 12mg/dL Creatinine 0.7mg/dL Estimated GFR (Cockcroft-Gault) 92.2 Glucose Level 88mg/dL Calcium Level 8.0mg/dL Imaging: Abd US: IMPRESSION 1. Common bile duct dilatation, possibly due to reservoir effect status post cholecystectomy. MRCP or ERCP can be performed if there is concern for distal obstructing process. 2. Partially obscured pancreas, aorta and inferior vena cava due to bowel gas. PE: GEN: NAD LUNGS: CTAB HEART: S1S2 ABD: NABS, S/ND, LLQ pain, some epigastric discomfort NEURO/PSYCH: A & O 3 A/P: Abd pain, n/v, hematochezia, EVER -previous workup as above -- Tap water enemas to continue prep for colonoscopy this afternoon. D/w RN, GI lab. ARIAN WAYNE Nov 14, 2016 09:36
[2016-11-14] MEDS ORDERED: LIDOCAINE 2% PF Vial for OR 5 ML VIAL. ONE (10:15)
[2016-11-14] MEDS ORDERED: PROPOFOL 40 ML IV ONE (10:15)
[2016-11-14 11:00] VITALS: BP 126/84
[2016-11-14] MEDS ORDERED: IV RINGERS,LACTATED 1000ML 1,000 ML IV ONE (12:00)
[2016-11-14 12:51] LABS: % SAT IRON 7 % (15-34); IRON,SERUM 31 ug/dL (50-170)
[2016-11-14] MEDS ORDERED: FENTANYL PF 100 MCG/2 ML VIAL. ONE (13:13)
--- NOTE | 2016-11-14 13:48 | PDOC4 ---
Operative Note Operative Note Colonoscopy Meds propofol per anesthesia Pre-op dx hematocehzia/blood loss anemia Post-op dx internal hemorrhoids Plan advance diet serial cbcs sb series and/or capsule as o/p if unable to maintain blood counts WILL KELLER MD Nov 14, 2016 13:48
[2016-11-14 15:00] VITALS: BP 123/45
--- NOTE | 2016-11-14 15:38 | PDOC ---
PROGRESS NOTES Chief Complaint Chief Complaint hematocehzia/blood loss anemia w. internal hemorrhoids 1. Abdominal pain LLQ, WITH + FOBT, diverticulitis? 2. recent EGD showed non erosive gastritis 3. Prior history of gastric bypass surgeries with anastomotic ulcers. 4. Intractable nausea 5. chronic epigastric pain from sx history 6. GERD 7. drug abuse with marijuana 8. Anxiety /Depression, Stable History of Present Illness History of Present Illness scope done today, if hgb drops may consider capsule full liquid diet, may advance if does well IVF pain control on PPI protonix bid, sucralfate Vitals Vitals Vital Signs Date Time Temp Pulse Resp B/P Pulse Ox O2 Delivery O2 Flow Rate FiO2 11/14/16 14:02 97.1 61 20 116/67 96 Room Air 97.1 Physical Exam General: Alert, No acute distress Heart: Regular rate, No murmurs Lungs: Clear Abdomen: Other Extremities: No clubbing Skin: No rashes Labs LABS Laboratory Tests Test 11/13/16 15:50 11/14/16 05:50 Stool Occult Blood Positive (NEG) White Blood Count 4.1x10^3/uL (4.0-11.0) Red Blood Count 3.13x10^6/uL (3.50-5.40) Hemoglobin 7.9g/dL (12.0-15.5) Hematocrit 25.2% (36.0-47.0) Mean Corpuscular Volume 81fL (79-100) Mean Corpuscular Hemoglobin 25pg (25-35) Mean Corpuscular Hemoglobin Concent 31g/dL (31-37) Red Cell Distribution Width 18.2% (11.5-14.5) Platelet Count 217x10^3/uL (140-400) Neutrophils (%) (Auto) 53% (31-73) Lymphocytes (%) (Auto) 34% (24-48) Monocytes (%) (Auto) 10% (0-9) Eosinophils (%) (Auto) 3% (0-3) Basophils (%) (Auto) 1% (0-3) Neutrophils # (Auto) 2.2x10^3uL (1.8-7.7) Lymphocytes # (Auto) 1.4x10^3/uL (1.0-4.8) Monocytes # (Auto) 0.4x10^3/uL (0.0-1.1) Eosinophils # (Auto) 0.1x10^3/uL (0.0-0.7) Basophils # (Auto) 0.0x10^3/uL (0.0-0.2) Sodium Level 143mmol/L (136-145) Potassium Level 4.2mmol/L (3.5-5.1) Chloride Level 109mmol/L (98-107) Carbon Dioxide Level 26mmol/L (21-32) Anion Gap 8 (6-14) Blood Urea Nitrogen 12mg/dL (7-20) Creatinine 0.7mg/dL (0.6-1.0) Estimated GFR (Cockcroft-Gault) 92.2 Glucose Level 88mg/dL (70-99) Calcium Level 8.0mg/dL (8.5-10.1) Iron Level 31ug/dL (50-170) Total Iron Binding Capacity 426ug/dL (250-450) Iron Saturation 7% (15-34) Review of Systems Review of Systems nausea LLQ pain Assessment and Plan Assessmemt and Plan Problems Medical Problems: (1) Abdominal pain Status: Acute (2) GI (gastrointestinal bleed) Status: Acute (3) Nausea and vomiting Status: Acute Problems: Comment Review of Relevant I have reviewed the following items fredo (where applicable) has been applied. Labs Laboratory Tests Test 11/13/16 13:47 11/13/16 14:30 11/13/16 14:55 11/13/16 15:50 Bedside Urine HCG, Qualitative Hcg negative (Negative) Urine Collection Type Unknown Urine Color Yellow Urine Clarity Clear Urine pH 7.0 Urine Specific [place] 1.015 Urine Protein Negativemg/dL (NEG-TRACE) Urine Glucose (UA) Negativemg/dL (NEG) Urine Ketones (Stick) Negativemg/dL (NEG) Urine Blood Negative (NEG) Urine Nitrite Negative (NEG) Urine Bilirubin Negative (NEG) Urine Urobilinogen Dipstick 0.2mg/dL (0.2 mg/dL) Urine Leukocyte Esterase Negative (NEG) Urine RBC 0/HPF (0-2) Urine WBC Occ/HPF (0-4) Urine Squamous Epithelial Cells Few/LPF Urine Bacteria 0/HPF (0-FEW) White Blood Count 6.7x10^3/uL (4.0-11.0) Red Blood Count 3.59x10^6/uL (3.50-5.40) Hemoglobin 9.0g/dL (12.0-15.5) Hematocrit 28.7% (36.0-47.0) Mean Corpuscular Volume 80fL (79-100) Mean Corpuscular Hemoglobin 25pg (25-35) Mean Corpuscular Hemoglobin Concent 31g/dL (31-37) Red Cell Distribution Width 18.1% (11.5-14.5) Platelet Count 300x10^3/uL (140-400) Neutrophils (%) (Auto) 78% (31-73) Lymphocytes (%) (Auto) 15% (24-48) Monocytes (%) (Auto) 6% (0-9) Eosinophils (%) (Auto) 1% (0-3) Basophils (%) (Auto) 1% (0-3) Neutrophils # (Auto) 5.2x10^3uL (1.8-7.7) Lymphocytes # (Auto) 1.0x10^3/uL (1.0-4.8) Monocytes # (Auto) 0.4x10^3/uL (0.0-1.1) Eosinophils # (Auto) 0.0x10^3/uL (0.0-0.7) Basophils # (Auto) 0.0x10^3/uL (0.0-0.2) Sodium Level 140mmol/L (136-145) Potassium Level 3.6mmol/L (3.5-5.1) Chloride Level 103mmol/L (98-107) Carbon Dioxide Level 24mmol/L (21-32) Anion Gap 13 (6-14) Blood Urea Nitrogen 20mg/dL (7-20) Creatinine 0.8mg/dL (0.6-1.0) Estimated GFR (Cockcroft-Gault) 79.0 BUN/Creatinine Ratio 25 (6-20) Glucose Level 112mg/dL (70-99) Calcium Level 8.8mg/dL (8.5-10.1) Total Bilirubin 0.2mg/dL (0.2-1.0) Aspartate Amino Transf (AST/SGOT) 12U/L (15-37) Alanine Aminotransferase (ALT/SGPT) 20U/L (14-59) Alkaline Phosphatase 89U/L (46-116) Total Protein 7.8g/dL (6.4-8.2) Albumin 4.2g/dL (3.4-5.0) Albumin/Globulin Ratio 1.2 (1.0-1.7) Lipase 80U/L (73-393) Stool Occult Blood Positive (NEG) Test 11/14/16 05:50 White Blood Count 4.1x10^3/uL (4.0-11.0) Red Blood Count 3.13x10^6/uL (3.50-5.40) Hemoglobin 7.9g/dL (12.0-15.5) Hematocrit 25.2% (36.0-47.0) Mean Corpuscular Volume 81fL (79-100) Mean Corpuscular Hemoglobin 25pg (25-35) Mean Corpuscular Hemoglobin Concent 31g/dL (31-37) Red Cell Distribution Width 18.2% (11.5-14.5) Platelet Count 217x10^3/uL (140-400) Neutrophils (%) (Auto) 53% (31-73) Lymphocytes (%) (Auto) 34% (24-48) Monocytes (%) (Auto) 10% (0-9) Eosinophils (%) (Auto) 3% (0-3) Basophils (%) (Auto) 1% (0-3) Neutrophils # (Auto) 2.2x10^3uL (1.8-7.7) Lymphocytes # (Auto) 1.4x10^3/uL (1.0-4.8) Monocytes # (Auto) 0.4x10^3/uL (0.0-1.1) Eosinophils # (Auto) 0.1x10^3/uL (0.0-0.7) Basophils # (Auto) 0.0x10^3/uL (0.0-0.2) Sodium Level 143mmol/L (136-145) Potassium Level 4.2mmol/L (3.5-5.1) Chloride Level 109mmol/L (98-107) Carbon Dioxide Level 26mmol/L (21-32) Anion Gap 8 (6-14) Blood Urea Nitrogen 12mg/dL (7-20) Creatinine 0.7mg/dL (0.6-1.0) Estimated GFR (Cockcroft-Gault) 92.2 Glucose Level 88mg/dL (70-99) Calcium Level 8.0mg/dL (8.5-10.1) Iron Level 31ug/dL (50-170) Total Iron Binding Capacity 426ug/dL (250-450) Iron Saturation 7% (15-34) Laboratory Tests Test 11/13/16 15:50 11/14/16 05:50 Stool Occult Blood Positive (NEG) White Blood Count 4.1x10^3/uL (4.0-11.0) Red Blood Count 3.13x10^6/uL (3.50-5.40) Hemoglobin 7.9g/dL (12.0-15.5) Hematocrit 25.2% (36.0-47.0) Mean Corpuscular Volume 81fL (79-100) Mean Corpuscular Hemoglobin 25pg (25-35) Mean Corpuscular Hemoglobin Concent 31g/dL (31-37) Red Cell Distribution Width 18.2% (11.5-14.5) Platelet Count 217x10^3/uL (140-400) Neutrophils (%) (Auto) 53% (31-73) Lymphocytes (%) (Auto) 34% (24-48) Monocytes (%) (Auto) 10% (0-9) Eosinophils (%) (Auto) 3% (0-3) Basophils (%) (Auto) 1% (0-3) Neutrophils # (Auto) 2.2x10^3uL (1.8-7.7) Lymphocytes # (Auto) 1.4x10^3/uL (1.0-4.8) Monocytes # (Auto) 0.4x10^3/uL (0.0-1.1) Eosinophils # (Auto) 0.1x10^3/uL (0.0-0.7) Basophils # (Auto) 0.0x10^3/uL (0.0-0.2) Sodium Level 143mmol/L (136-145) Potassium Level 4.2mmol/L (3.5-5.1) Chloride Level 109mmol/L (98-107) Carbon Dioxide Level 26mmol/L (21-32) Anion Gap 8 (6-14) Blood Urea Nitrogen 12mg/dL (7-20) Creatinine 0.7mg/dL (0.6-1.0) Estimated GFR (Cockcroft-Gault) 92.2 Glucose Level 88mg/dL (70-99) Calcium Level 8.0mg/dL (8.5-10.1) Iron Level 31ug/dL (50-170) Total Iron Binding Capacity 426ug/dL (250-450) Iron Saturation 7% (15-34) Medications Current Medications Sodium Chloride (Iv Sodium Chloride 0.9% 1000ml Bag) 1,000 ml @ 1,000 mls/hr 1X ONCE IV Last administered on 11/13/16 15:15; Start 11/13/16 at 15:15; Stop 11/13/16 at 16:14; Status DC Ondansetron HCl (Zofran) 4 mg PRN Q30MIN PRN IV NAUSEA/VOMITING Last administered on 11/13/16 16:37; Start 11/13/16 at 15:30; Stop 11/13/16 at 16:37 ; Status DC Hydromorphone HCl (Dilaudid) 0.5 mg PRN Q1HR PRN IV SEVERE PAIN Last administered on 11/13/16 16:36; Start 11/13/16 at 15:30 Ondansetron HCl 4 mg 4 mg PRN Q8HRS PRN IV NAUSEA/VOMITING; Start 11/13/16 at 16:15; Stop 11/14/16 at 16:14 Sodium Chloride (Iv Sodium Chloride 0.9% 1000ml Bag) 1,000 ml @ 125 mls/hr Q8H IV Last administered on 11/14/16 09:00; Start 11/13/16 at 16:05; Stop at 16:04 Divalproex Sodium (Depakote) 500 mg BID PO ; Start 11/13/16 at 21:00 Ferrous Sulfate (Feosol) 325 mg DAILY PO ; Start 11/14/16 at 09:00 Acetaminophen/ Hydrocodone Bitart (Lortab 5/325) 1 tab PRN Q6HRS PRN PO PAIN Last administered on 11/13/16 18:09; Start 11/13/16 at 16:30 Hyoscyamine (Anaspaz) 0.125 mg PRN Q4HRS PRN PO STOMACH CRAMPING; Start at 16:30 Pantoprazole Sodium (Protonix) 40 mg BIDAC PO Last administered on 11/13/16 18 :09; Start 11/13/16 at 16:30 Sertraline HCl (Zoloft) 50 mg HS PO Last administered on 11/13/16 21:17; Start 11/13/16 at 21:00 Sucralfate (Carafate) 1 gm QIDACHS PO ; Start 11/13/16 at 21:00 Olanzapine (Zyprexa) 10 mg QHS PO Last administered on 11/13/16 21:16; Start 11/13/16 at 21:00 Non-Formulary Medication 1 cap BID PO ; Start 11/13/16 at 21:00; Stop 11/13/16 at 21:00; Status DC Ondansetron HCl (Zofran Odt) 4 mg PRN Q6HRS PRN PO NAUSEA; Start 11/13/16 at 17 :15 Zolpidem Tartrate (Ambien) 5 mg PRN QHS PRN PO INSOMNIA; Start 11/13/16 at 17: 15 Acetaminophen (Tylenol) 650 mg PRN Q6HRS PRN PO FEVER; Start 11/13/16 at 16:30 Ondansetron HCl (Zofran) 4 mg PRN Q6HRS PRN IV NAUSEA/VOMITING; Start 11/13/16 at 16:30 Sodium Cl/Sod Bicarb/Potass Cl/ PEG (Golytely) 4,000 ml 1X ONCE PO Last administered on 11/13/16 21:14; Start 11/13/16 at 18:00; Stop 11/13/16 at 18:01 ; Status DC Hydromorphone HCl (Dilaudid) 1 mg PRN Q4HRS PRN IV PAIN; Start 11/13/16 at 18: 45; Stop 11/13/16 at 18:56; Status DC Hydromorphone HCl 1 mg 1 mg PRN Q2HRS PRN IV PAIN Last administered on 11:11; Start 11/13/16 at 20:00 Propofol (Diprivan) 40 ml @ As Directed STK-MED ONCE IV ; Start 11/14/16 at 10: 15; Stop 11/14/16 at 10:16; Status DC Lidocaine HCl 5 ml 5 ml STK-MED ONCE .ROUTE ; Start 11/14/16 at 10:15; Stop at 10:16; Status DC Lactated Ringer's (Iv Lactated Ringers) 1,000 ml @ 75 mls/hr 1X ONCE IV Last administered on 11/14/16t 11:59; Start 11/14/16 at 12:00; Stop 11/15/16 at 01:19 Fentanyl Citrate (Fentanyl 2ml Vial) 100 mcg STK-MED ONCE .ROUTE ; Start at 13:13; Stop 11/14/16 at 13:14; Status DC Active Scripts Active Ferrous Sulfate 325 Mg Tablet 1 Tab PO DAILY Lortab 5-325 mg Tablet (Hydrocodone/Acetaminophen) 1 Each Tablet 1 Tab PO PRN Q6HRS PRN Anaspaz (Hyoscyamine Sulfate) 0.125 Mg Tab.rapdis 0.125 Mg PO PRN Q4HRS PRN Protonix (Pantoprazole Sodium) 40 Mg Tablet 40 Mg PO BIDAC Carafate (Sucralfate) 1 Gm Tablet 1 Gm PO QID Reported Ambien (Zolpidem Tartrate) 10 Mg Tablet 1 Tab PO QHS Depakote (Divalproex Sodium) 500 Mg Tablet. 1 Tab PO BID Zyprexa (Olanzapine) 10 Mg Tablet 1 Tab PO QHS Zoloft (Sertraline Hcl) 50 Mg Tablet 1 Tab PO HS Zofran (Ondansetron Hcl) 4 Mg Tablet 1 Tab PO PRN Q6HRS PRN Omeprazole 40 Mg Capsule. 1 Cap PO BID Vitals/I & O Vital Sign - Last 24 Hours 11/13/16 11/13/16 11/13/16 11/13/16 15:56 16:26 16:36 16:56 Pulse 83 83 79 Resp 17 16 16 16 B/P 130/69 134/72 118/81 Pulse Ox 98 98 98 O2 Delivery Room Air Room Air Room Air 11/13/16 11/13/16 11/13/16 11/13/16 17:37 19:00 19:08 19:24 Temp 98.6 98.4 98.6 98.4 Pulse 72 65 Resp 17 B/P 119/68 117/76 Pulse Ox 96 98 96 O2 Delivery Room Air Room Air Room Air 11/13/16 11/13/16 11/13/16 11/14/16 21:13 22:38 23:31 00:01 Temp 97.6 97.6 Pulse 69 Resp 18 B/P 128/91 Pulse Ox 96 97 97 97 O2 Delivery Room Air Room Air Room Air Room Air 11/14/16 11/14/16 11/14/16 11/14/16 02:31 07:50 08:00 11:00 Temp 97.6 97.8 97.6 97.8 Pulse 87 75 Resp 18 18 B/P 133/72 126/84 Pulse Ox 97 99 99 O2 Delivery Room Air Room Air Room Air Room Air 11/14/16 11/14/16 11/14/16 11/14/16 11:50 11:52 13:44 14:02 Temp 98.3 97.1 97.1 98.3 97.1 97.1 Pulse 90 70 61 Resp 18 20 20 B/P 144/79 116/67 Pulse Ox 96 96 96 O2 Delivery Room Air Room Air Room Air Intake and Output 11/13/16 11/13/16 11/14/16 15:00 23:00 07:00 Intake Total 1000 ml 3420 ml Balance 1000 ml 3420 ml LIGIA LINARES MD Nov 14, 2016 15:38
[2016-11-14 15:53] LABS: HEMATOCRIT 27.4 % (36.0-47.0); HEMOGLOBIN 8.7 g/dL (12.0-15.5); RED BLOOD COUNT 3.4 x10^6/uL (3.50-5.40); RED CELL DISTRIBUTION WIDTH 17.7 % (11.5-14.5); WHITE BLOOD COUNT 4.6 x10^3/uL (4.0-11.0)
[2016-11-14 19:00] VITALS: BP 123/82
[2016-11-14] MEDS ORDERED: ZOLPIDEM 5 MG TABLET. PO SCH (21:00)
[2016-11-14] MEDS: OLANZAPINE 5 MG TABLET. PO SCH (21:18)
[2016-11-14] MEDS: SERTRALINE 50 MG TABLET. PO SCH (21:19)
[2016-11-14] MEDS: HYDROCODONE/APAP 5/325MG TABLET. PO PRN (22:46)
[2016-11-14 23:00] VITALS: BP 97/49
[2016-11-15] MEDS: HYDROMORPHONE 2 MG/ML VIAL. IV PRN ×5 (00:28→10:18)
[2016-11-15 03:00] VITALS: BP 112/74
[2016-11-15 04:49] LABS: BASO # 0.1 x10^3/uL (0.0-0.2); BASO % 1 % (0-3); EOS % 3 % (0-3); HEMATOCRIT 27.7 % (36.0-47.0); HEMOGLOBIN 8.4 g/dL (12.0-15.5); LYMPH # 1.6 x10^3/uL (1.0-4.8); LYMPH % 38 % (24-48); MEAN CORPUSCULAR HEMOGLOBIN 25 pg (25-35); MEAN CORPUSCULAR HGB CONC 30 g/dL (31-37); MEAN CORPUSCULAR VOLUME 82 fL (79-100); MONO % 9 % (0-9); NEUT % 49 % (31-73); PLATELET COUNT 224 x10^3/uL (140-400); RED BLOOD COUNT 3.37 x10^6/uL (3.50-5.40); RED CELL DISTRIBUTION WIDTH 18.4 % (11.5-14.5); WHITE BLOOD COUNT 4.1 x10^3/uL (4.0-11.0)
[2016-11-15 05:20] LABS: ALBUMIN 3.2 g/dL (3.4-5.0); ALBUMIN/GLOBULIN RATIO 1.1 (1.0-1.7); CALCIUM 8.3 mg/dL (8.5-10.1); CREATININE 0.7 mg/dL (0.6-1.0); GFR 92.2; POTASSIUM 4.8 mmol/L (3.5-5.1); TOTAL BILIRUBIN 0.1 mg/dL (0.2-1.0)
[2016-11-15 07:00] VITALS: BP 124/71
[2016-11-15] MEDS: SUCRALFATE 1 GM TABLET. PO SCH ×2 (07:48→12:39)
[2016-11-15] MEDS: PANTOPRAZOLE 40 MG TABLET.DR. PO SCH (07:48)
[2016-11-15] MEDS ORDERED: HYDR-2678 PO (09:44)
--- NOTE | 2016-11-15 09:47 | PDOC ---
Subjective: Subjective: No further bleeding. Ate breakfast, says vomited after. Still has pain - wants to continue IV pain meds. Thinks pain is a 6.9 today instead of a 7. Objective: Objective: D/w Dr. Alvarado, RN - probable DC today. Vital Signs: Vital Signs Date Time Temp Pulse Resp B/P Pulse Ox O2 Delivery O2 Flow Rate FiO2 11/15/16 07:00 98.5 62 16 124/71 99 Room Air 98.5 Labs: Laboratory Tests Test 11/14/16 15:20 11/15/16 03:40 White Blood Count 4.6x10^3/uL 4.1x10^3/uL Red Blood Count 3.40x10^6/uL 3.37x10^6/uL Hemoglobin 8.7g/dL 8.4g/dL Hematocrit 27.4% 27.7% Mean Corpuscular Volume 81fL 82fL Mean Corpuscular Hemoglobin 25pg 25pg Mean Corpuscular Hemoglobin Concent 32g/dL 30g/dL Red Cell Distribution Width 17.7% 18.4% Platelet Count 239x10^3/uL 224x10^3/uL Neutrophils (%) (Auto) 49% Lymphocytes (%) (Auto) 38% Monocytes (%) (Auto) 9% Eosinophils (%) (Auto) 3% Basophils (%) (Auto) 1% Neutrophils # (Auto) 2.0x10^3uL Lymphocytes # (Auto) 1.6x10^3/uL Monocytes # (Auto) 0.4x10^3/uL Eosinophils # (Auto) 0.1x10^3/uL Basophils # (Auto) 0.1x10^3/uL Sodium Level 144mmol/L Potassium Level 4.8mmol/L Chloride Level 108mmol/L Carbon Dioxide Level 26mmol/L Anion Gap 10 Blood Urea Nitrogen 6mg/dL Creatinine 0.7mg/dL Estimated GFR (Cockcroft-Gault) 92.2 BUN/Creatinine Ratio 9 Glucose Level 95mg/dL Calcium Level 8.3mg/dL Total Bilirubin 0.1mg/dL Aspartate Amino Transf (AST/SGOT) 24U/L Alanine Aminotransferase (ALT/SGPT) 26U/L Alkaline Phosphatase 76U/L Total Protein 6.0g/dL Albumin 3.2g/dL Albumin/Globulin Ratio 1.1 Imaging: Colonoscopy 11/14/16: internal hemorrhoids PE: GEN: NAD, looks better than yesterday, sitting up in bed, dressed, more talkative LUNGS: CTAB HEART: RRR ABD: BS+, LUQ tenderness NEURO/PSYCH: A & O 3 A/P: Left-sided abd pain - improved -CT 11/07: unrevealing for acute issue -EGD 11/08: s/p gastric bypass reversal, non-erosive gastritis -GI bleed scan 11/08: neg -colonoscopy 11/14: internal hemorrhoids N/v Hematochezia - no recurrence EVER -Hgb stable -- Possible DC today. Follow-up for SBFT and/or SBCE as outpt if ongoing anemia/bleeding. ARIAN WAYNE Nov 15, 2016 09:47
[2016-11-15] MEDS ORDERED: HEPARIN PF 500 UNIT/5 ML DISP.SYRIN. IV ONE (10:00)
[2016-11-15] MEDS: FERROUS SULFATE 325 MG TABLET. PO SCH (10:17)
[2016-11-15] MEDS: DIVALPROEX DELAYED RELEASE 500 MG TABLET.DR. PO SCH (10:17)
[2016-11-15 11:43] VITALS: BP 124/71
[2016-11-15 11:44] VITALS: BP 125/73
== END 2016-11-15 13:43 | disposition home or self-care (01) | DRG 392 ==
LOC: ER 14:34 → 5 SOUTH 16:09
PROVIDERS: ADMIT Internal Medicine; ATTEND Internal Medicine
PROC: 0DJD8ZZ Inspection of Lower Intestinal Tract, Via Natural or Artificial Opening Endoscopic (ICD-10-PCS; principal; 2016-11-14 13:30)
DX: R10.9 Unspecified abdominal pain (principal); K92.1 Melena; D50.0 Iron deficiency anemia secondary to blood loss (chronic); K64.8 Other hemorrhoids; F12.10 Cannabis abuse, uncomplicated; F32.9 Major depressive disorder, single episode, unspecified; F41.9 Anxiety disorder, unspecified; G89.29 Other chronic pain; K21.9 Gastro-esophageal reflux disease without esophagitis; K29.70 Gastritis, unspecified, without bleeding; Z87.11 Personal history of peptic ulcer disease; Z88.5 Allergy status to narcotic agent; Z90.49 Acquired absence of other specified parts of digestive tract; Z98.84 Bariatric surgery status
CPT/HCPCS: 36415; 76700; 80048; 80053; 81001; 81025; 82274; 83540; 83550; 83690; 85027; 87324; 96374; 96375; 96376; J1170; J2405; J2704; J3010; J7030; J7120; 99285-25

== ENCOUNTER 2016-11-24 08:19 | Emergency (ER) | payer OTHER, MEDICARE ==
[~2016-11-24] VITALS: Ht 172.7 cm; Wt 70.8 kg
[2016-11-24] MEDS ORDERED: ONDANSETRON PF 4 MG/2 ML VIAL. IV ONE ×2 (09:00→11:30)
[2016-11-24] MEDS ORDERED: FAMOTIDINE 20 MG/2 ML VIAL IVP ONE (09:00)
[2016-11-24] MEDS ORDERED: IV NORMAL SALINE 1000ML BAG 1,000 ML IV ONE (09:00)
[2016-11-24] MEDS ORDERED: HYDROmorphone 2 MG/ML VIAL IV ONE ×2 (09:00→11:00)
[2016-11-24 09:30] VITALS: BP 132/86
--- NOTE | 2016-11-24 09:55 | PHYS DOC ---
Past Medical History Past Medical History: Depression, GERD, Other Additional Past Medical Histor: ulcer, diverticulosis, chronic abd pain Past Surgical History: Appendectomy, Cholecystectomy, Gastric Bypass, Other Additional Past Surgical Histo: hernia, ovarian cyst, low body lift, 3 abd laps , 2 peg tubes,reversal, PORT Additional Information: Smokes between 07/31 and 07/29 PPD. Alcohol Use: None Drug Use: Marijuana Social History Narrative: Last smoked yesterday 11/23/16, am. Adult General Chief Complaint Chief Complaint: ABDOMINAL PAIN HPI HPI Patient is a 41 year old female with history of gastric bypass over 5 years ago , acid reflex, and depression who presents today with 7 out of 10 diffuse abdominal pain that began at 4 AM this morning. Patient denies this pain waking her up. Patient states she's also had multiple episodes of vomiting and diarrhea since 4 am. Patient states she is in a house with a friend who has similar symptoms. Patient was hospitalized last week for similar complaints. She states she did not want to wait until next week to see her PCP who she already saw on Friday last week. She states she wants to be checked out early enough to make sure everything is. She is requesting Dilaudid to fentanyl for her pain. Patient states she has vomited 7 times since she woke up this morning. Patient denies any hematemesis or melena. PCP is Dr. Rachel Review of Systems Review of Systems Constitutional: Denies fever or chills [] Eyes: Denies change in visual acuity, redness, or eye pain [] HENT: Denies nasal congestion or sore throat [] Respiratory: Denies cough or shortness of breath [] Cardiovascular: No additional information not addressed in HPI [] GI: Generalized abdominal pain : Denies dysuria or hematuria [] Musculoskeletal: Denies back pain or joint pain [] Integument: Denies rash or skin lesions [] Neurologic: Denies headache, focal weakness or sensory changes [] Endocrine: Denies polyuria or polydipsia [] Current Medications Current Medications Current Medications Medications (Trade) Dose Ordered Sig/Carol Start Time Stop Time Status Last Admin Dose Admin Famotidine (Pepcid) 20 mg 1X ONCE 11/24/16 09:00 11/24/16 09:01 DC 11/24/16 09:36 20 MG Hydromorphone HCl (Dilaudid) 1 mg 1X ONCE 11/24/16 11:00 11/24/16 11:01 DC Ondansetron HCl (Zofran) 4 mg 1X ONCE 11/24/16 09:00 11/24/16 09:01 DC 11/24/16 09:28 4 MG Sodium Chloride (Iv Sodium Chloride 0.9% 1000ml Bag) 1,000 ml @ 1,000 mls/hr 1X ONCE 11/24/16 09:00 11/24/16 09:59 DC 11/24/16 09:27 1,000 MLS/HR Allergies Allergies Allergies Coded Allergies Type Severity Reaction Last Updated Verified diphenhydramine Allergy Severe hallucinations/ams 11/14/16 Yes promethazine Allergy Severe confusion/ams 11/14/16 Yes sumatriptan Allergy Severe ANAPHYLAXIS 11/14/16 Yes haloperidol Allergy Intermediate 11/15/16 Yes morphine Allergy Intermediate HIVES 06/07/14 Yes NSAIDS (Non-Steroidal Anti-Inflamma Adverse Reaction Severe bleeding. 06/04/14 Yes metoclopramide Adverse Reaction Mild 11/07/16 Yes prochlorperazine Adverse Reaction Mild 11/07/16 Yes Physical Exam Physical Exam Constitutional: Well developed, well nourished, no acute distress, non-toxic appearance. [] HENT: Normocephalic, atraumatic, bilateral external ears normal, oropharynx moist, no oral exudates, nose normal. [] Eyes: PERRLA, EOMI, conjunctiva normal, no discharge. [] Neck: Normal range of motion, no tenderness, supple, no stridor. [] Cardiovascular:Heart rate regular rhythm, no murmur [] Lungs & Thorax: Bilateral breath sounds clear to auscultation [] Abdomen: Old healed surgical incision noted mid abdomen. Tenderness diffusely throughout the abdomen, negative Field's sign,negative psoas sign, negative obturator sign, no guarding no rebound pain or tenderness.Bowel sounds normal, soft, no masses, no pulsatile masses. [] Skin: Warm, dry, no erythema, no rash. [] Back: No tenderness, no CVA tenderness. [] Extremities: No tenderness, no cyanosis, no clubbing, ROM intact, no edema. [] Neurologic: Alert and oriented X 3, normal motor function, normal sensory function, no focal deficits noted. [] Psychologic: Affect normal, judgement normal, mood normal. [] Current Patient Data Vital Signs Vital Signs Date Time Temp Pulse Resp B/P Pulse Ox O2 Delivery O2 Flow Rate FiO2 11/24/16 09:37 20 97 Room Air 11/24/16 09:30 62 132/86 11/24/16 08:27 97.7 97.7 Lab Values Laboratory Tests Test 11/24/16 08:30 11/24/16 09:25 Urine Collection Type Unknown Urine Color Yellow Urine Clarity Clear Urine pH 8.0 Urine Specific [place] 1.010 Urine Protein Negativemg/dL (NEG-TRACE) Urine Glucose (UA) Negativemg/dL (NEG) Urine Ketones (Stick) Negativemg/dL (NEG) Urine Blood Negative (NEG) Urine Nitrite Negative (NEG) Urine Bilirubin Negative (NEG) Urine Urobilinogen Dipstick 0.2mg/dL (0.2 mg/dL) Urine Leukocyte Esterase Negative (NEG) Urine RBC 0/HPF (0-2) Urine WBC 0/HPF (0-4) Urine Squamous Epithelial Cells Few/LPF Urine Bacteria 0/HPF (0-FEW) White Blood Count 4.5x10^3/uL (4.0-11.0) Red Blood Count 3.62x10^6/uL (3.50-5.40) Hemoglobin 8.9g/dL (12.0-15.5) L Hematocrit 28.0% (36.0-47.0) L Mean Corpuscular Volume 77fL (79-100) L Mean Corpuscular Hemoglobin 25pg (25-35) Mean Corpuscular Hemoglobin Concent 32g/dL (31-37) Red Cell Distribution Width 17.1% (11.5-14.5) H Platelet Count 328x10^3/uL (140-400) Neutrophils (%) (Auto) 78% (31-73) H Lymphocytes (%) (Auto) 14% (24-48) L Monocytes (%) (Auto) 6% (0-9) Eosinophils (%) (Auto) 1% (0-3) Basophils (%) (Auto) 1% (0-3) Neutrophils # (Auto) 3.5x10^3uL (1.8-7.7) Lymphocytes # (Auto) 0.6x10^3/uL (1.0-4.8) L Monocytes # (Auto) 0.3x10^3/uL (0.0-1.1) Eosinophils # (Auto) 0.1x10^3/uL (0.0-0.7) Basophils # (Auto) 0.0x10^3/uL (0.0-0.2) Sodium Level 140mmol/L (136-145) Potassium Level 4.1mmol/L (3.5-5.1) Chloride Level 107mmol/L (98-107) Carbon Dioxide Level 27mmol/L (21-32) Anion Gap 6 (6-14) Blood Urea Nitrogen 11mg/dL (7-20) Creatinine 0.7mg/dL (0.6-1.0) Estimated GFR (Cockcroft-Gault) 92.2 BUN/Creatinine Ratio 16 (6-20) Glucose Level 99mg/dL (70-99) Calcium Level 8.6mg/dL (8.5-10.1) Total Bilirubin 0.2mg/dL (0.2-1.0) Aspartate Amino Transferase (AST) 13U/L (15-37) L Alanine Aminotransferase (ALT) 15U/L (14-59) Alkaline Phosphatase 82U/L (46-116) Total Protein 6.8g/dL (6.4-8.2) Albumin 3.4g/dL (3.4-5.0) Albumin/Globulin Ratio 1.0 (1.0-1.7) Lipase 67U/L (73-393) L Laboratory Tests 11/24/16 09:25 Laboratory Tests 11/24/16 09:25 EKG EKG [] Radiology/Procedures Radiology/Procedures [] Course & Med Decision Making Course & Med Decision Making Pertinent Labs and Imaging studies reviewed. (See chart for details) This is a 41-year-old female patient with history of gastric bypass who presents today with nausea vomiting and diarrhea that began at 4 AM this morning. She was admitted in the hospital last week for similar complaints. She states she is in a house with somebody who has similar symptoms as well. CBC with hemoglobin of 8.9, hematocrit of 28.0 last time patient was in the hospital a week ago hemoglobin was 8.4. She states she has chronic anemia. She states she has been resistant taking any iron tablets. Recommended she considers taking iron tablets. Patient was given pain medicine IV fluid Zofran and famotidine. She states she is feeling better. She herself states she cannot afford to be admitted because she has to go home and take care or other people in her house and family members that are sick. She was discharged with instructions to follow-up with a GI doctor and PCP in the course of this week. Dragon Disclaimer Dragon Disclaimer This electronic medical record was generated, in whole or in part, using a voice recognition dictation system. Departure Departure Impression: Primary Impression: Abdominal pain Additional Impressions: Nausea and vomiting Diarrhea Disposition: 01 HOME, SELF-CARE Condition: STABLE Referrals: FEDE RACHEL DO (PCP) Follow-up with your doctor as soon as possible Patient Instructions: Abdominal Pain, Diarrhea, Nausea and Vomiting, Easy-to- Read Additional Instructions: You were seen for abdominal pain nausea and vomiting. 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 Come back to the ED if symptoms worsen. Continue taking your regular medicines at home. Problem Qualifiers Primary Impression: Abdominal pain Abdominal location: generalized Qualified Code: R10.84 - Generalized abdominal pain Additional Impressions: Nausea and vomiting Vomiting type: unspecified Vomiting Intractability: unspecified Qualified Code: R11.2 - Nausea with vomiting, unspecified Diarrhea Diarrhea type: unspecified type Qualified Code: R19.7 - Diarrhea, unspecified PRABHA CEE APRN Nov 24, 2016 09:55
[2016-11-24 10:09] LABS: BASO % 1 % (0-3); EOS % 1 % (0-3); HEMOGLOBIN 8.9 g/dL (12.0-15.5); LYMPH # 0.6 x10^3/uL (1.0-4.8); LYMPH % 14 % (24-48); MEAN CORPUSCULAR HEMOGLOBIN 25 pg (25-35); MEAN CORPUSCULAR HGB CONC 32 g/dL (31-37); MEAN CORPUSCULAR VOLUME 77 fL (79-100); MONO % 6 % (0-9); NEUT % 78 % (31-73); PLATELET COUNT 328 x10^3/uL (140-400); RED BLOOD COUNT 3.62 x10^6/uL (3.50-5.40); RED CELL DISTRIBUTION WIDTH 17.1 % (11.5-14.5); WHITE BLOOD COUNT 4.5 x10^3/uL (4.0-11.0)
[2016-11-24 10:14] LABS: CALCIUM 8.6 mg/dL (8.5-10.1); CREATININE 0.7 mg/dL (0.6-1.0); GFR 92.2; POTASSIUM 4.1 mmol/L (3.5-5.1)
[2016-11-24 10:20] LABS: ALBUMIN 3.4 g/dL (3.4-5.0); TOTAL BILIRUBIN 0.2 mg/dL (0.2-1.0); TOTAL PROTEIN 6.8 g/dL (6.4-8.2)
[2016-11-24 10:42] LABS: BILIRUBIN,URINE NEGATIVE (NEG); GLUCOSE,URINE NEGATIVE (NEG); NITRITE,URINE NEGATIVE (NEG); PROTEIN,URINE NEGATIVE (NEG-TRACE); UROBILINOGEN,URINE 0.2 mg/dL (0.2 mg/dL)
[2016-11-24 11:08] LABS: BACTERIA,URINE 0 /HPF (0-FEW); RBC,URINE 0 /HPF (0-2); SQUAMOUS EPITHELIAL CELL,UR FEW /LPF; WBC,URINE 0 /HPF (0-4)
[2016-11-27] MEDS ORDERED: HYDR-2672 PO (11:41)
== END 2016-11-24 11:58 | disposition home or self-care (01) ==
LOC: ER 08:19
DX: R11.2 Nausea with vomiting, unspecified (principal); R19.7 Diarrhea, unspecified; R10.9 Unspecified abdominal pain; F32.9 Major depressive disorder, single episode, unspecified; K21.9 Gastro-esophageal reflux disease without esophagitis; Z90.49 Acquired absence of other specified parts of digestive tract; F17.200 Nicotine dependence, unspecified, uncomplicated; F12.10 Cannabis abuse, uncomplicated; Z98.84 Bariatric surgery status; Z88.8 Allergy status to other drugs, medicaments and biological substances; Z88.5 Allergy status to narcotic agent
CPT/HCPCS: 96361; 96374; 96375; 96376; 99285; J1170; J2405; J7030; S0028; 36415; 80053; 81001; 83690; 85027

== ENCOUNTER 2016-12-12 13:53 | Emergency (ER) | payer OTHER, MEDICARE ==
[~2016-12-12 13:53] MED LIST changes: +HYDR-2672 PO
[2016-12-12] MEDS ORDERED: PANTOPRAZOLE IV PUSH 40 MG VIAL. IVP ONE (14:15)
[2016-12-12] MEDS ORDERED: fentaNYL PF VIAL 100 MCG/2 ML VIAL IV ONE ×3 (14:15→16:45)
[2016-12-12] MEDS ORDERED: ONDANSETRON PF 4 MG/2 ML VIAL. IV ONE (14:15)
[2016-12-12] MEDS ORDERED: IV NORMAL SALINE 1000ML BAG 1,000 ML IV ONE (14:15)
--- NOTE | 2016-12-12 14:20 | PHYS DOC ---
Past Medical History Past Medical History: Depression, GERD, Other Additional Past Medical Histor: ulcer, diverticulosis, chronic abd pain Past Surgical History: Appendectomy, Cholecystectomy, Gastric Bypass, Other Additional Past Surgical Histo: hernia, ovarian cyst, low body lift, 3 abd laps , 2 peg tubes,reversal, PORT Alcohol Use: None Drug Use: Marijuana Adult General Chief Complaint Chief Complaint: RECTAL BLEED HPI HPI This is a 41-year-old female who has had significant rectal bleeding with loose stools for the last 24 hours. Patient has an extensive abdominal history including a Ramone-en-Y gastric bypass, cholecystectomy, appendectomy, and multiple exploratory laparotomies. Patient has history of GI bleed from ulcers in her stomach. She was recently admitted within the last month for rectal bleeding and had endoscopy that was negative for any source of bleed. Patient is in the process of following up with Dr. Aggarwal for pill endoscopy and has not yet obtained the study. She states her bleeding was controlled for the last several weeks until the last 24 hours. She localizes all her pain to the periumbilical area as well as the epigastrium region. She has mild nausea with episodes of emesis that is nonbloody. Patient is nontoxic in appearance upon arrival as well as afebrile. She rates her pain an 8 out of 10. Review of Systems Review of Systems Constitutional: Denies fever or chills [] Eyes: Denies change in visual acuity, redness, or eye pain [] HENT: Denies nasal congestion or sore throat [] Respiratory: Denies cough or shortness of breath [] Cardiovascular: No additional information not addressed in HPI [] GI: Has abdominal pain, has nausea, has vomiting, has bloody stools, denies diarrhea [] : Denies dysuria or hematuria [] Musculoskeletal: Denies back pain or joint pain [] Integument: Denies rash or skin lesions [] Neurologic: Denies headache, focal weakness or sensory changes [] Endocrine: Denies polyuria or polydipsia [] Current Medications Current Medications Current Medications Medications (Trade) Dose Ordered Sig/Carol Start Time Stop Time Status Last Admin Dose Admin Fentanyl Citrate (Fentanyl 2ml Vial) 50 mcg 1X ONCE 12/12/16 15:45 12/12/16 15:46 DC 12/12/16 15:35 50 MCG Info (Do NOT chart on this entry -- for MONITORING) 1 each PRN DAILY PRN 12/12/16 15:15 12/14/16 15:14 Iohexol (Omnipaque 300 Mg/ml) 75 ml 1X ONCE 12/12/16 15:15 12/12/16 15:16 DC 12/12/16 15:49 75 ML Ondansetron HCl (Zofran) 4 mg 1X ONCE 12/12/16 14:15 12/12/16 14:16 DC 12/12/16 14:15 4 MG Pantoprazole Sodium (Protonix Vial) 80 mg 1X ONCE 12/12/16 14:15 12/12/16 14:16 DC 12/12/16 14:15 80 MG Sodium Chloride 1,000 ml @ 1,000 mls/hr 1X ONCE 12/12/16 14:15 12/12/16 15:14 DC 12/12/16 14:15 1,000 MLS/HR Allergies Allergies Allergies Coded Allergies Type Severity Reaction Last Updated Verified diphenhydramine Allergy Severe hallucinations/ams 11/14/16 Yes promethazine Allergy Severe confusion/ams 11/14/16 Yes sumatriptan Allergy Severe ANAPHYLAXIS 11/14/16 Yes haloperidol Allergy Intermediate 11/15/16 Yes morphine Allergy Intermediate HIVES 11/26/16 Yes NSAIDS (Non-Steroidal Anti-Inflamma Adverse Reaction Severe bleeding. 06/04/14 Yes metoclopramide Adverse Reaction Mild 11/07/16 Yes prochlorperazine Adverse Reaction Mild 11/07/16 Yes Physical Exam Physical Exam Constitutional: Well developed, well nourished, no acute distress, non-toxic appearance. [] HENT: Normocephalic, atraumatic, bilateral external ears normal, oropharynx moist, no oral exudates, nose normal. [] Eyes: PERRLA, EOMI, conjunctiva normal, no discharge. [] Neck: Normal range of motion, no tenderness, supple, no stridor. [] Cardiovascular:Heart rate regular rhythm, no murmur [] Lungs & Thorax: Bilateral breath sounds clear to auscultation [] Abdomen: Bowel sounds normal, soft, moderate epigrastrium and periumbilical tenderness, no masses, no pulsatile masses. [] Skin: Warm, dry, no erythema, no rash. [] Back: No tenderness, no CVA tenderness. [] Extremities: No tenderness, no cyanosis, no clubbing, ROM intact, no edema. [] Neurologic: Alert and oriented X 3, normal motor function, normal sensory function, no focal deficits noted. [] Psychologic: Affect normal, judgement normal, mood normal. [] Current Patient Data Vital Signs Vital Signs Date Time Temp Pulse Resp B/P (MAP) Pulse Ox O2 Delivery O2 Flow Rate FiO2 12/12/16 16:02 71 20 164/100 (121) 98 12/12/16 14:13 98.6 Room Air 98.6 Lab Values Laboratory Tests Test 12/12/16 14:36 White Blood Count 6.3 x10^3/uL (4.0-11.0) Red Blood Count 3.66 x10^6/uL (3.50-5.40) Hemoglobin 9.1 g/dL (12.0-15.5) L Hematocrit 28.8 % (36.0-47.0) L Mean Corpuscular Volume 79 fL (79-100) Mean Corpuscular Hemoglobin 25 pg (25-35) Mean Corpuscular Hemoglobin Concent 32 g/dL (31-37) Red Cell Distribution Width 19.1 % (11.5-14.5) H Platelet Count 236 x10^3/uL (140-400) Neutrophils (%) (Auto) 84 % (31-73) H Lymphocytes (%) (Auto) 10 % (24-48) L Monocytes (%) (Auto) 5 % (0-9) Eosinophils (%) (Auto) 1 % (0-3) Basophils (%) (Auto) 1 % (0-3) Neutrophils # (Auto) 5.3 x10^3uL (1.8-7.7) Lymphocytes # (Auto) 0.6 x10^3/uL (1.0-4.8) L Monocytes # (Auto) 0.3 x10^3/uL (0.0-1.1) Eosinophils # (Auto) 0.0 x10^3/uL (0.0-0.7) Basophils # (Auto) 0.0 x10^3/uL (0.0-0.2) Sodium Level 142 mmol/L (136-145) Potassium Level 3.6 mmol/L (3.5-5.1) Chloride Level 107 mmol/L (98-107) Carbon Dioxide Level 24 mmol/L (21-32) Anion Gap 11 (6-14) Blood Urea Nitrogen 9 mg/dL (7-20) Creatinine 0.7 mg/dL (0.6-1.0) Estimated GFR (Cockcroft-Gault) 92.2 Glucose Level 130 mg/dL (70-99) H Lactic Acid Level 1.0 mmol/L (0.4-2.0) Calcium Level 8.5 mg/dL (8.5-10.1) Laboratory Tests 12/12/16 14:36 Laboratory Tests 12/12/16 14:36 EKG EKG [] Radiology/Procedures Radiology/Procedures [] Course & Med Decision Making Course & Med Decision Making Pertinent Labs and Imaging studies reviewed. (See chart for details) 41-year-old female with ongoing rectal bleeding will have full laboratory workup including a lactate and type and screen drawn. Patient will be imaged due to the fact that she's having significant pain with her symptoms at this time and has an extensive abdominal surgery history. A dose of Protonix, Zofran , and fentanyl will be given for her symptoms. Upon my reassessment, the patient feels improved after fluids, Zofran, IV pain meds. Her CT of her abdomen and pelvis demonstrated what could be a minimal proctocolitis for which I will cover her with antibiotics. I'll be discharging her pain meds and close follow-up. Her hemoglobin today is 9.1 which is at her usual baseline. I counseled her to return in the next 24 hours if her bleeding should worsen or if she develops any dizziness or lightheadedness. Patient is agreeable with this plan. Return precautions were provided and acknowledged by the patient. Dragon Disclaimer Dragon Disclaimer This electronic medical record was generated, in whole or in part, using a voice recognition dictation system. Departure Departure Impression: Primary Impression: Abdominal pain Additional Impressions: Colitis Rectal bleeding Disposition: 01 HOME, SELF-CARE Admitting Physician: Other Condition: IMPROVED Referrals: FEDE WILKERSON DO (PCP) Patient Instructions: Colitis, Rectal Bleeding, [id number] Additional Instructions: Please follow up with your primary doctor in the next 2-3 days for your abdominal pain and bleeding. Take your medications as prescribed. Return to the ER if you develop any worsening of your bleeding or develop any dizziness or lightheaded or shortness of breath. Scripts Metronidazole (FLAGYL) 250 Mg Tablet 1 TAB PO TID, #30 TAB Prov: WILL CARLISLE DO 12/12/16 Ciprofloxacin Hcl (CIPRO) 500 Mg Tablet 1 TAB PO BID, #20 TAB Prov: WILL CARLISLE DO 12/12/16 Ondansetron Hcl (ZOFRAN) 4 Mg Tablet 4 MG PO BID Y for NAUSEA/VOMITING, #14 TAB Prov: WILL CARLISLE DO 12/12/16 Hydrocodone/Apap 5-325 (NORCO 5-325 TABLET) 1 Each Tablet 1 TAB PO PRN Q6HRS Y for PAIN, #14 TAB 0 Refills Prov: WILL CARLISLE DO 12/12/16 Problem Qualifiers WILL CARLISLE DO December 12, 2016 14:20
[2016-12-12 14:51] LABS: BASO % 1 % (0-3); EOS % 1 % (0-3); HEMATOCRIT 28.8 % (36.0-47.0); HEMOGLOBIN 9.1 g/dL (12.0-15.5); LYMPH # 0.6 x10^3/uL (1.0-4.8); LYMPH % 10 % (24-48); MEAN CORPUSCULAR HEMOGLOBIN 25 pg (25-35); MEAN CORPUSCULAR HGB CONC 32 g/dL (31-37); MEAN CORPUSCULAR VOLUME 79 fL (79-100); MONO % 5 % (0-9); NEUT % 84 % (31-73); PLATELET COUNT 236 x10^3/uL (140-400); RED BLOOD COUNT 3.66 x10^6/uL (3.50-5.40); RED CELL DISTRIBUTION WIDTH 19.1 % (11.5-14.5); WHITE BLOOD COUNT 6.3 x10^3/uL (4.0-11.0)
[2016-12-12 15:02] LABS: CALCIUM 8.5 mg/dL (8.5-10.1); CREATININE 0.7 mg/dL (0.6-1.0); GFR 92.2; POTASSIUM 3.6 mmol/L (3.5-5.1)
[2016-12-12] MEDS ORDERED: IOHEXOL 300 MG/ML 75 ML VIAL IV ONE (15:15)
[2016-12-12] MEDS ORDERED: CONTRAST GIVEN MC PRN (15:15)
[2016-12-12 16:02] VITALS: BP 164/100
--- NOTE | 2016-12-12 16:16 | RAD ---
Examination: CT of the abdomen pelvis with IV contrast History: History of rectal bleeding Comparison: 11/25/2016 Technique: Axial CT images of the abdomen pelvis were performed with IV contrast with coronal and sagittal reformats were performed. PQRS Compliance Statement: One or more of the following individualized dose reduction techniques were utilized for this examination: 1. Automated exposure control 2. Adjustment of the mA and/or kV according to patient size 3. Use of iterative reconstruction technique Findings: Minimal right lung base atelectasis partially visualized. No evidence of free air identified in the abdomen. The visualized liver, adrenals grossly appears unremarkable. Calcified granulomas identified in the spleen The bilateral kidneys enhance symmetrically. The visualized pancreas grossly appears unremarkable. Prior surgical changes identified in the stomach. Hyperdensity identified in the stomach likely due to recent oral contrast exam. The small bowel is nondilated. The appendix is normal. Feces and gas noted in the colon. There is mild thickened appearance of the wall of the sigmoid colon and the rectum could be secondary to nondistention or colitis/proctitis The urinary bladder is mildly distended. Small amount of fluid identified in the pelvis The caliber of the aorta grossly appears unremarkable No evidence of lytic bony destructive lesion identified. Impression: 1. Mild thickened appearance of the wall of the distal sigmoid colon the rectum probably due to nondistention or minimal colitis/proctitis.
[2016-12-12] MEDS ORDERED: CIPR500T94 PO (16:41)
[2016-12-12] MEDS ORDERED: METR250T PO (16:41)
[2016-12-12] MEDS ORDERED: HYDR-971 PO (16:41)
[2016-12-12] MEDS ORDERED: ONDA4TAB7 PO (16:41)
== END 2016-12-12 16:56 | disposition home or self-care (01) ==
LOC: ER 13:53
DX: K62.5 Hemorrhage of anus and rectum (principal); K52.9 Noninfective gastroenteritis and colitis, unspecified; F32.9 Major depressive disorder, single episode, unspecified; K21.9 Gastro-esophageal reflux disease without esophagitis; G89.29 Other chronic pain; F12.10 Cannabis abuse, uncomplicated; Z90.49 Acquired absence of other specified parts of digestive tract; Z98.84 Bariatric surgery status; Z88.5 Allergy status to narcotic agent; Z88.6 Allergy status to analgesic agent; Z88.8 Allergy status to other drugs, medicaments and biological substances
CPT/HCPCS: 36415; 74177; 80048; 83605; 85027; 86850; 86900; 86901; 96361; 96374; 96375; 96376; 99285; C9113; J2405; J3010; J7030; Q9967

== ENCOUNTER 2016-12-13 13:12 | Observation (INO) | payer OTHER, MEDICARE ==
[~2016-12-13] VITALS: Ht 172.7 cm; Wt 72.6 kg
[~2016-12-13 13:12] MED LIST changes: +CIPR500T94 PO; +HYDR-971 PO; +METR250T PO
[2016-12-13] MEDS ORDERED: IV NORMAL SALINE 1000ML BAG 1,000 ML IV SCH (13:27)
[2016-12-13] MEDS ORDERED: 0.9 % SOD CHL for STERILE FIELD 10 ML DISP.SYRIN. ONE (13:29)
[2016-12-13] MEDS ORDERED: LIDO:MAALOX:DONNATAL 1:1:1 15 ML SINGLE DOSE SWSW ONE (13:30)
[2016-12-13] MEDS ORDERED: ONDANSETRON PF 4 MG/2 ML VIAL. IV ONE (13:30)
--- NOTE | 2016-12-13 13:46 | PHYS DOC ---
Past Medical History Past Medical History: Depression, GERD, Other Additional Past Medical Histor: ulcer, diverticulosis, chronic abd pain Past Surgical History: Appendectomy, Cholecystectomy, Gastric Bypass, Other Additional Past Surgical Histo: hernia, ovarian cyst, low body lift, 3 abd laps , 2 peg tubes,reversal, PORT Alcohol Use: None Drug Use: Marijuana Adult General Chief Complaint Chief Complaint: ABDOMINAL PAIN HPI HPI Patient is a 41 year old female who presents with uncontrolled nausea vomiting. She states she was seen last night and had labs done and was discharged home with Berhane Llanos. She states she's been compliant with this however at she got home she noticed some more bright red blood in her stool this very intermittent and her nausea returned. She presents back to ER complaining about uncontrolled nausea vomiting. She states her discomfort is constant and is her normal pain that she has. She denies any fevers chills. She states she's follow-up with Dr. Monreal in the past. Review of Systems Review of Systems Constitutional: Denies fever or chills [] Eyes: Denies change in visual acuity, redness, or eye pain [] HENT: Denies nasal congestion or sore throat [] Respiratory: Denies cough or shortness of breath [] Cardiovascular: No additional information not addressed in HPI [] GI: Positive for abdominal pain, nausea, vomiting, bloody stools [] : Denies dysuria or hematuria [] Musculoskeletal: Denies back pain or joint pain [] Integument: Denies rash or skin lesions [] Neurologic: Denies headache, focal weakness or sensory changes [] Endocrine: Denies polyuria or polydipsia [] Current Medications Current Medications Current Medications Medications (Trade) Dose Ordered Sig/Carol Start Time Stop Time Status Last Admin Dose Admin Acetaminophen/ Hydrocodone Bitart (Lortab 10/325) 1 tab PRN Q6HRS PRN 12/13/16 14:45 Acetaminophen/ Hydrocodone Bitart (Lortab 5/325) 1 tab PRN Q6HRS PRN 12/13/16 14:45 UNV Fentanyl Citrate (Fentanyl 2ml Vial) 50 mcg PRN Q2HR PRN 12/13/16 14:45 Hydromorphone HCl (Dilaudid) 1 mg PRN Q15MIN PRN 12/13/16 13:30 12/14/16 13:29 12/13/16 14:16 1 MG Hyoscyamine (Anaspaz) 0.125 mg PRN Q4HRS PRN 12/13/16 14:45 Multi-Ingredient Mouthwash/Gargle (Gi Cocktail Single Dose) 15 ml 1X ONCE 12/13/16 13:30 12/13/16 13:34 DC 12/13/16 14:15 15 ML Non-Formulary Medication 4 mg BID PRN 12/13/16 14:45 UNV Ondansetron HCl (Zofran) 4 mg 1X ONCE 12/13/16 13:30 12/13/16 13:34 DC 12/13/16 14:15 4 MG Sodium Chloride (NORMAL SALINE FLUSH for STERILE FIELD) 10 ml STK-MED ONCE 12/13/16 13:29 12/13/16 13:30 DC Allergies Allergies Allergies Coded Allergies Type Severity Reaction Last Updated Verified diphenhydramine Allergy Severe hallucinations/ams 11/14/16 Yes promethazine Allergy Severe confusion/ams 11/14/16 Yes sumatriptan Allergy Severe ANAPHYLAXIS 11/14/16 Yes haloperidol Allergy Intermediate 11/15/16 Yes morphine Allergy Intermediate HIVES 11/26/16 Yes NSAIDS (Non-Steroidal Anti-Inflamma Adverse Reaction Severe bleeding. 06/04/14 Yes metoclopramide Adverse Reaction Mild 11/07/16 Yes prochlorperazine Adverse Reaction Mild 11/07/16 Yes Physical Exam Physical Exam Constitutional: Well developed, well nourished, no acute distress, non-toxic appearance. [] HENT: Normocephalic, atraumatic, bilateral external ears normal, oropharynx moist, no oral exudates, nose normal. [] Eyes: PERRLA, EOMI, conjunctiva normal, no discharge. [] Neck: Normal range of motion, no tenderness, supple, no stridor. [] Cardiovascular:Heart rate regular rhythm, no murmur [] Lungs & Thorax: Bilateral breath sounds clear to auscultation [] Abdomen: Bowel sounds normal, soft, mild tender to palpation diffusely, no rebound or guarding, no masses, no pulsatile masses. [] Skin: Warm, dry, no erythema, no rash. [] Back: No tenderness, no CVA tenderness. [] Extremities: No tenderness, no cyanosis, no clubbing, ROM intact, no edema. [] Neurologic: Alert and oriented X 3, normal motor function, normal sensory function, no focal deficits noted. [] Psychologic: Affect normal, judgement normal, mood normal. [] Current Patient Data Vital Signs Vital Signs Date Time Temp Pulse Resp B/P (MAP) Pulse Ox O2 Delivery O2 Flow Rate FiO2 12/13/16 14:16 18 99 12/13/16 13:27 98.4 77 148/78 (101) Room Air 98.4 Lab Values Laboratory Tests Test 12/13/16 14:00 White Blood Count 5.1 x10^3/uL (4.0-11.0) Red Blood Count 3.52 x10^6/uL (3.50-5.40) Hemoglobin 8.7 g/dL (12.0-15.5) L Hematocrit 27.6 % (36.0-47.0) L Mean Corpuscular Volume 78 fL (79-100) L Mean Corpuscular Hemoglobin 25 pg (25-35) Mean Corpuscular Hemoglobin Concent 32 g/dL (31-37) Red Cell Distribution Width 19.2 % (11.5-14.5) H Platelet Count 244 x10^3/uL (140-400) Neutrophils (%) (Auto) 61 % (31-73) Lymphocytes (%) (Auto) 28 % (24-48) Monocytes (%) (Auto) 7 % (0-9) Eosinophils (%) (Auto) 3 % (0-3) Basophils (%) (Auto) 1 % (0-3) Neutrophils # (Auto) 3.1 x10^3uL (1.8-7.7) Lymphocytes # (Auto) 1.4 x10^3/uL (1.0-4.8) Monocytes # (Auto) 0.4 x10^3/uL (0.0-1.1) Eosinophils # (Auto) 0.1 x10^3/uL (0.0-0.7) Basophils # (Auto) 0.0 x10^3/uL (0.0-0.2) Urine Color Yellow Urine Clarity Clear Urine pH 5.5 Urine Specific [place] 1.025 Urine Protein Negative mg/dL (NEG-TRACE) Urine Glucose (UA) Negative mg/dL (NEG) Urine Ketones (Stick) Negative mg/dL (NEG) Urine Blood Negative (NEG) Urine Nitrite Negative (NEG) Urine Bilirubin Negative (NEG) Urine Urobilinogen Dipstick 0.2 mg/dL (0.2 mg/dL) Urine Leukocyte Esterase Negative (NEG) Urine RBC 0 /HPF (0-2) Urine WBC Occ /HPF (0-4) Urine Squamous Epithelial Cells Few /LPF Urine Bacteria 0 /HPF (0-FEW) Urine Mucus Mod /LPF Sodium Level 143 mmol/L (136-145) Potassium Level 3.6 mmol/L (3.5-5.1) Chloride Level 109 mmol/L (98-107) H Carbon Dioxide Level 26 mmol/L (21-32) Anion Gap 8 (6-14) Blood Urea Nitrogen 9 mg/dL (7-20) Creatinine 0.7 mg/dL (0.6-1.0) Estimated GFR (Cockcroft-Gault) 92.2 Glucose Level 91 mg/dL (70-99) Calcium Level 8.1 mg/dL (8.5-10.1) L Total Bilirubin 0.2 mg/dL (0.2-1.0) Direct Bilirubin 0.1 mg/dL (0.0-0.2) Aspartate Amino Transferase (AST) 15 U/L (15-37) Alanine Aminotransferase (ALT) 27 U/L (14-59) Alkaline Phosphatase 88 U/L (46-116) Creatine Kinase 81 U/L (26-192) Creatine Kinase MB (Mass) < 0.5 ng/mL (0.0-3.6) Creatine Kinase MB Relative Index % (0-4) Total Protein 6.3 g/dL (6.4-8.2) L Albumin 3.4 g/dL (3.4-5.0) Lipase 60 U/L (73-393) L Laboratory Tests 12/13/16 14:00 Laboratory Tests 12/13/16 14:00 EKG EKG [] Radiology/Procedures Radiology/Procedures [] Impressions: Uncontrolled nausea vomiting Course & Med Decision Making Course & Med Decision Making Pertinent Labs and Imaging studies reviewed. (See chart for details) Labs are stable however she is still having her discomfort and uncontrolled nausea. She has CT scan and labs yesterday. We'll admit to the hospitalist with GI consultation. Interim orders have been written patient's agreeable plan. Dragon Disclaimer Dragon Disclaimer This electronic medical record was generated, in whole or in part, using a voice recognition dictation system. Departure Departure Impression: Primary Impression: Nausea and vomiting Disposition: 09 ADMITTED INPATIENT Admitting Physician: Britta Rojas Condition: STABLE Referrals: FEDE WILKERSON DO (PCP) WENCESLAO NEGRON MD December 13, 2016 13:46
[2016-12-13 14:09] LABS: BILIRUBIN,URINE NEGATIVE (NEG); GLUCOSE,URINE NEGATIVE (NEG); NITRITE,URINE NEGATIVE (NEG); PH,URINE 5.5; PROTEIN,URINE NEGATIVE (NEG-TRACE); UROBILINOGEN,URINE 0.2 mg/dL (0.2 mg/dL)
[2016-12-13 14:10] LABS: BASO % 1 % (0-3); EOS % 3 % (0-3); HEMATOCRIT 27.6 % (36.0-47.0); HEMOGLOBIN 8.7 g/dL (12.0-15.5); LYMPH # 1.4 x10^3/uL (1.0-4.8); LYMPH % 28 % (24-48); MEAN CORPUSCULAR HEMOGLOBIN 25 pg (25-35); MEAN CORPUSCULAR HGB CONC 32 g/dL (31-37); MEAN CORPUSCULAR VOLUME 78 fL (79-100); MONO % 7 % (0-9); NEUT % 61 % (31-73); PLATELET COUNT 244 x10^3/uL (140-400); RED BLOOD COUNT 3.52 x10^6/uL (3.50-5.40); RED CELL DISTRIBUTION WIDTH 19.2 % (11.5-14.5); WHITE BLOOD COUNT 5.1 x10^3/uL (4.0-11.0)
[2016-12-13] MEDS: HYDROmorphone 2 MG/ML VIAL IV/SQ PRN ×2 (14:16→15:45)
[2016-12-13 14:19] LABS: CALCIUM 8.1 mg/dL (8.5-10.1); CREATININE 0.7 mg/dL (0.6-1.0); GFR 92.2
[2016-12-13 14:20] LABS: POTASSIUM 3.6 mmol/L (3.5-5.1)
[2016-12-13 14:25] LABS: ALBUMIN 3.4 g/dL (3.4-5.0); BACTERIA,URINE 0 /HPF (0-FEW); DIRECT BILIRUBIN 0.1 mg/dL (0.0-0.2); RBC,URINE 0 /HPF (0-2); SQUAMOUS EPITHELIAL CELL,UR FEW /LPF; TOTAL BILIRUBIN 0.2 mg/dL (0.2-1.0); TOTAL PROTEIN 6.3 g/dL (6.4-8.2); WBC,URINE OCC /HPF (0-4)
[2016-12-13 14:34] LABS: CREATINE KINASE 81 U/L (26-192)
[2016-12-13 14:35] LABS: CKMB MASS < 0.5 ng/mL (0.0-3.6)
[2016-12-13] MEDS ORDERED: HYOSCYAMINE 0.125 MG TAB.RAPDIS PO PRN (14:45)
[2016-12-13] MEDS ORDERED: HYDROcodone/APAP 5/325MG 1 TAB TABLET PO PRN ×2 (14:45)
[2016-12-13] MEDS ORDERED: HYDROcodone/APAP 10/325 1 TAB TABLET PO PRN (14:45)
[2016-12-13] MEDS ORDERED: NON FORMULARY ITEM (Ondansetron Hcl (Zofran) 4 MG) PO PRN (14:45)
[2016-12-13] MEDS ORDERED: ONDANSETRON ODT 4 MG TAB.RAPDIS. PO PRN (15:00)
[2016-12-13] MEDS ORDERED: fentaNYL PF VIAL 100 MCG/2 ML VIAL IV PRN (15:30)
[2016-12-13] MEDS ORDERED: IV NORMAL SALINE 1000ML BAG 1,000 ML IV ONE (15:45)
[2016-12-13] MEDS: ONDANSETRON PF 4 MG/2 ML VIAL. IV PRN (15:50)
--- NOTE | 2016-12-13 15:50 | PDOC2 ---
GI CONSULT Reason For Consult: Abd pain, ?capsule endoscopy HPI: HPI: 41 y/o female who we have seen a few times over the past couple months for n/v, abd pain, and hematochezia. Recent workup: -CT 11/07/16: mild pelvic and left adnexal free fluid. -EGD 11/08/16: s/p gastric bypass reversal, non-erosive gastritis. -GI bleed scan 11/08/16: neg. -abd US 11/13: CBD dilatation s/p cholecystectomy. -colonoscopy 11/14/16: internal hemorrhoids. -labs 11/25/16: iron deficient, heme positive stool. -CT 11/25/16: no acute abnormality. -SBFT 11/25/16: normal. -GI bleed scan 11/26/16: neg -CT : mild thickened appearance of the wall of the distal sigmoid colon and rectum probably due to non-distention or minimal colitis/proctitis. Outpatient [facility] recommended at last discharge. No follow-up yet due to financial issues. Surgical history as below. At home takes omeprazole, Carafate, Zofran, occasional H2 princess (Pepcid or Zantac). Doesn't take iron but says she's supposed to. Denies NSAIDs. Was doing okay, recurrence of vomiting and abd pain on Fri, then started w / bloody diarrhea (dark red blood mixed w/ stool) on . Came to ER last night, preferred to DC, was prescribed Flagyl and Cipro, which she did fill along w/ her hydrocodone and Zofran. Came back today w/ ongoing symptoms. Hgb 9 yesterday, 8.7 today. Was 9.3 when discharged 11/27. Has PPI, iron, Cipro , Flagyl, Carafate, and hyoscyamine ordered. PMH: PMH: per HPI, depression, PUD, gastric bypass/reversal, hiatal hernia repair, ovarian cyst removal, three laparoscopies, PEG placement x 2, cholecystectomy, appendectomy Social History: Smoke: <1 pack per day ALCOHOL: none Drugs: Marijuana (every 2 days) ROS: GEN: Denies fevers, chills, sweats HEENT: Denies blurred vision, sore throat CV: Denies chest pain RESP: Denies shortness of air, cough GI: Per HPI : Denies hematuria, dysuria ENDO: Denies weight changes NEURO: Denies confusion, dizziness MSK: Denies weakness, joint pain/swelling SKIN: Denies jaundice, pruritus Vitals: Vitals: Vital Signs Date Time Temp Pulse Resp B/P (MAP) Pulse Ox O2 Delivery O2 Flow Rate FiO2 12/13/16 14:16 18 99 12/13/16 13:27 98.4 77 148/78 (101) Room Air 98.4 Labs: Labs: Laboratory Tests Test 12/13/16 14:00 White Blood Count 5.1 x10^3/uL (4.0-11.0) Red Blood Count 3.52 x10^6/uL (3.50-5.40) Hemoglobin 8.7 g/dL (12.0-15.5) Hematocrit 27.6 % (36.0-47.0) Mean Corpuscular Volume 78 fL (79-100) Mean Corpuscular Hemoglobin 25 pg (25-35) Mean Corpuscular Hemoglobin Concent 32 g/dL (31-37) Red Cell Distribution Width 19.2 % (11.5-14.5) Platelet Count 244 x10^3/uL (140-400) Neutrophils (%) (Auto) 61 % (31-73) Lymphocytes (%) (Auto) 28 % (24-48) Monocytes (%) (Auto) 7 % (0-9) Eosinophils (%) (Auto) 3 % (0-3) Basophils (%) (Auto) 1 % (0-3) Neutrophils # (Auto) 3.1 x10^3uL (1.8-7.7) Lymphocytes # (Auto) 1.4 x10^3/uL (1.0-4.8) Monocytes # (Auto) 0.4 x10^3/uL (0.0-1.1) Eosinophils # (Auto) 0.1 x10^3/uL (0.0-0.7) Basophils # (Auto) 0.0 x10^3/uL (0.0-0.2) Urine Color Yellow Urine Clarity Clear Urine pH 5.5 Urine Specific [place] 1.025 Urine Protein Negative mg/dL (NEG-TRACE) Urine Glucose (UA) Negative mg/dL (NEG) Urine Ketones (Stick) Negative mg/dL (NEG) Urine Blood Negative (NEG) Urine Nitrite Negative (NEG) Urine Bilirubin Negative (NEG) Urine Urobilinogen Dipstick 0.2 mg/dL (0.2 mg/dL) Urine Leukocyte Esterase Negative (NEG) Urine RBC 0 /HPF (0-2) Urine WBC Occ /HPF (0-4) Urine Squamous Epithelial Cells Few /LPF Urine Bacteria 0 /HPF (0-FEW) Urine Mucus Mod /LPF Sodium Level 143 mmol/L (136-145) Potassium Level 3.6 mmol/L (3.5-5.1) Chloride Level 109 mmol/L (98-107) Carbon Dioxide Level 26 mmol/L (21-32) Anion Gap 8 (6-14) Blood Urea Nitrogen 9 mg/dL (7-20) Creatinine 0.7 mg/dL (0.6-1.0) Estimated GFR (Cockcroft-Gault) 92.2 Glucose Level 91 mg/dL (70-99) Calcium Level 8.1 mg/dL (8.5-10.1) Total Bilirubin 0.2 mg/dL (0.2-1.0) Direct Bilirubin 0.1 mg/dL (0.0-0.2) Aspartate Amino Transf (AST/SGOT) 15 U/L (15-37) Alanine Aminotransferase (ALT/SGPT) 27 U/L (14-59) Alkaline Phosphatase 88 U/L (46-116) Creatine Kinase 81 U/L (26-192) Creatine Kinase MB (Mass) < 0.5 ng/mL (0.0-3.6) Creatine Kinase MB Relative Index % (0-4) Total Protein 6.3 g/dL (6.4-8.2) Albumin 3.4 g/dL (3.4-5.0) Lipase 60 U/L (73-393) Allergies: Coded Allergies: diphenhydramine (Verified Allergy, Severe, hallucinations/ams, 11/14/16) promethazine (Verified Allergy, Severe, confusion/ams, 11/14/16) sumatriptan (Verified Allergy, Severe, ANAPHYLAXIS, 11/14/16) haloperidol (Verified Allergy, Intermediate, 11/15/16) morphine (Verified Allergy, Intermediate, HIVES, 11/26/16) TAKES HYDROCODONE AT HOME NSAIDS (Non-Steroidal Anti-Inflamma (Verified Adverse Reaction, Severe, bleeding., 06/04/14) pt has ulcer hx, hx bleeding problems metoclopramide (Verified Adverse Reaction, Mild, 11/07/16) prochlorperazine (Verified Adverse Reaction, Mild, 11/07/16) Medications: Current Medications Medications (Trade) Dose Ordered Sig/Carol Route PRN Reason Start Time Stop Time Status Last Admin Dose Admin Multi-Ingredient Mouthwash/Gargle (Gi Cocktail Single Dose) 15 ml 1X ONCE SWSW 12/13/16 13:30 12/13/16 13:34 DC 12/13/16 14:15 Hydromorphone HCl (Dilaudid) 1 mg PRN Q15MIN PRN IV/SQ PAIN GREATER THAN 3/10 12/13/16 13:30 12/14/16 13:29 12/13/16 14:16 Sodium Chloride 1,000 ml @ 1,000 mls/hr Q1H IV 12/13/16 13:27 12/13/16 14:26 DC 12/13/16 13:50 Ondansetron HCl (Zofran) 4 mg 1X ONCE IV 12/13/16 13:30 12/13/16 13:34 DC 12/13/16 14:15 Imaging: Imaging: Per HPI. PE: GEN: NAD, sitting up in bed in ER HEENT: Atraumatic, PERRL LUNGS: CTAB HEART: RRR ABD: surgical scars, diffusely tender to light palpation, BS+ EXTREMITY: No edema SKIN: No rashes, no jaundice NEURO/PSYCH: A & O 3 A/P: A/P: N/v, abd pain, diarrhea, recurrent GI bleeding, multiple abd surgeries -extensive workup as above -- Probably doesn't need atbx. Continue other GI meds. Meckel's scan on Friday. Follow-up w/ bariatric surgery at [facility]. ?drug-seeking behavior in the past GRETEL-ARIAN PETERSON December 13, 2016 15:50
[2016-12-13 16:00] VITALS: BP 127/69
--- NOTE | 2016-12-13 16:02 | PDOC1 ---
History and Physical Date of Admission Date of Admission DATE: 12/13/16 TIME: 15:54 Identification/Chief Complaint Chief Complaint abd pain Problems: Source Source: Caregiver, Chart review, Patient History of Present Illness History of Present Illness 41 y.o female usually goes to [facility] for her admission, which is rather for narc seeking behavior as relayed to me by ER mD who knows her well from [facility] er admits and visits there, Today she decides to come to [facility], complaining of abd pain, nausea, emesis, but no diarrhea or fever, HX gastric bypass, and maybe even borderline personality d.o,. LAbs and imaging ok, PAin not controlled hence admitted. Recent dx of proctitis/colitis, on cipro and flagyl PO dcd on. She requests some diet and all IV meds, did discuss with her at ER, cant have diet and not start PO meds. She finally agreed, Dw ER mD Past Medical History GI: Other (gastric bypass, chronic abd pain) Psych: Addictions Past Surgical History Past Surgical History: Other (gastric bypass) Family History Family History: No Significant Social History Smoke: <1 pack per day ALCOHOL: none Drugs: Marijuana (every 2 days) Current Problem List Problem List Problems Medical Problems: (1) Nausea and vomiting Status: Acute Problems: Current Medications Current Medications Current Medications Multi-Ingredient Mouthwash/Gargle (Gi Cocktail Single Dose) 15 ml 1X ONCE SWSW Last administered on 12/13/16 14:15; Start 12/13/16 at 13:30; Stop 12/13/16 at 13:34; Status DC Hydromorphone HCl (Dilaudid) 1 mg PRN Q15MIN PRN IV/SQ PAIN GREATER THAN 3/10 Last administered on 12/13/16 14:16; Start 12/13/16 at 13:30; Stop 12/14/16 at 13:29 Sodium Chloride 1,000 ml @ 1,000 mls/hr Q1H IV Last administered on 12/13/16 13:50; Start 12/13/16 at 13:27; Stop 12/13/16 at 14:26; Status DC Ondansetron HCl (Zofran) 4 mg 1X ONCE IV Last administered on 12/13/16 14:15 ; Start 12/13/16 at 13:30; Stop 12/13/16 at 13:34; Status DC Sodium Chloride (NORMAL SALINE FLUSH for STERILE FIELD) 10 ml JobSyndicateK-MED ONCE .ROUTE ; Start 12/13/16 at 13:29; Stop 12/13/16 at 13:30; Status DC Fentanyl Citrate (Fentanyl 2ml Vial) 50 mcg PRN Q2HR PRN IV pain; Start at 14:45 Ferrous Sulfate (Feosol) 325 mg DAILYWBKFT PO ; Start 12/14/16 at 08:00; Status UNV Divalproex Sodium (Depakote) 500 mg BID PO ; Start 12/13/16 at 21:00 Ferrous Sulfate (Feosol) 325 mg DAILYWBKFT PO ; Start 12/14/16 at 08:00 Acetaminophen/ Hydrocodone Bitart (Lortab 10/325) 1 tab PRN Q6HRS PRN PO PAIN; Start 12/13/16 at 14:45 Acetaminophen/ Hydrocodone Bitart (Lortab 5/325) 1 tab PRN Q6HRS PRN PO PAIN; Start 12/13/16 at 14:45 Acetaminophen/ Hydrocodone Bitart (Lortab 5/325) 1 tab PRN Q6HRS PRN PO PAIN; Start 12/13/16 at 14:45; Status UNV Hyoscyamine (Anaspaz) 0.125 mg PRN Q4HRS PRN PO STOMACH CRAMPING; Start at 14:45 Metronidazole (Flagyl) 250 mg Q8HRS PO ; Start 12/13/16 at 22:00 Pantoprazole Sodium (Protonix) 40 mg BIDAC PO ; Start 12/13/16 at 16:30 Sertraline HCl (Zoloft) 50 mg HS PO ; Start 12/13/16 at 21:00 Sucralfate (Carafate) 1 gm QID PO ; Start 12/13/16 at 17:00 Ciprofloxacin (Cipro) 500 mg BID PO ; Start 12/13/16 at 21:00 Olanzapine (ZyPREXA) 10 mg QHS PO ; Start 12/13/16 at 21:00 Non-Formulary Medication 1 cap BID PO ; Start 12/13/16 at 21:00; Status UNV Ondansetron HCl (Zofran Odt) 4 mg PRN Q8HRS PRN PO NAUSEA; Start 12/13/16 at 15 :00; Stop 12/13/16 at 15:44; Status DC Non-Formulary Medication 4 mg BID PRN PO NAUSEA/VOMITING; Start 12/13/16 at 14: 45; Status UNV Zolpidem Tartrate (Ambien) 5 mg QHS PO ; Start 12/13/16 at 21:00 Ondansetron HCl (Zofran) 4 mg PRN Q8HRS PRN IV NAUSEA/VOMITING; Start 12/13/16 at 15:30; Stop 12/14/16 at 15:29 Fentanyl Citrate (Fentanyl 2ml Vial) 50 mcg PRN Q2HR PRN IV PAIN; Start at 15:30; Stop 12/14/16 at 15:29 Ondansetron HCl (Zofran) 4 mg Q6HRS PRN IV nausea; Start 12/13/16 at 15:45 Sodium Chloride 1,000 ml @ 100 mls/hr 1X ONCE IV ; Start 12/13/16 at 15:45; Stop 12/14/16 at 01:44 Active Scripts Active Flagyl (Metronidazole) 250 Mg Tablet 1 Tab PO TID Cipro (Ciprofloxacin Hcl) 500 Mg Tablet 1 Tab PO BID Zofran (Ondansetron Hcl) 4 Mg Tablet 4 Mg PO BID PRN Mobile 5-325 Tablet (Acetaminophen/Hydrocodone Bitart) 1 Each Tablet 1 Tab PO PRN Q6HRS PRN Hydrocodone-Apap 10-325 (Hydrocodone Bit/Acetaminophen) 1 Each Tablet 1 Tab PO PRN Q6HRS PRN Lortab 5-325 mg Tablet (Hydrocodone/Acetaminophen) 1 Each Tablet 1 Tab PO PRN Q6HRS PRN Ferrous Sulfate 325 Mg Tablet 1 Tab PO DAILY Anaspaz (Hyoscyamine Sulfate) 0.125 Mg Tab.rapdis 0.125 Mg PO PRN Q4HRS PRN Protonix (Pantoprazole Sodium) 40 Mg Tablet 40 Mg PO BIDAC Carafate (Sucralfate) 1 Gm Tablet 1 Gm PO QID Reported Ambien (Zolpidem Tartrate) 10 Mg Tablet 1 Tab PO QHS Depakote (Divalproex Sodium) 500 Mg Tablet.dr 1 Tab PO BID Zyprexa (Olanzapine) 10 Mg Tablet 1 Tab PO QHS Zoloft (Sertraline Hcl) 50 Mg Tablet 1 Tab PO HS Zofran (Ondansetron Hcl) 4 Mg Tablet 1 Tab PO PRN Q6HRS PRN Omeprazole 40 Mg Capsule.dr 1 Cap PO BID Allergies Allergies: Coded Allergies: diphenhydramine (Verified Allergy, Severe, hallucinations/ams, 11/14/16) promethazine (Verified Allergy, Severe, confusion/ams, 11/14/16) sumatriptan (Verified Allergy, Severe, ANAPHYLAXIS, 11/14/16) haloperidol (Verified Allergy, Intermediate, 11/15/16) morphine (Verified Allergy, Intermediate, HIVES, 11/26/16) TAKES HYDROCODONE AT HOME NSAIDS (Non-Steroidal Anti-Inflamma (Verified Adverse Reaction, Severe, bleeding., 06/04/14) pt has ulcer hx, hx bleeding problems metoclopramide (Verified Adverse Reaction, Mild, 11/07/16) prochlorperazine (Verified Adverse Reaction, Mild, 11/07/16) ROS General: No: Chills, Night Sweats, Fatigue, Malaise, Appetite, Other PSYCHOLOGICAL ROS: No: Anxiety, Behavioral Disorder, Concentration difficultie , Decreased libido, Depression, Disorientation, Hallucinations, Hostility, Irritablity, Memory difficulties, Mood Swings, Obsessive thoughts, Physical abuse, Sexual abuse, Sleep disturbances, Suicidal ideation, Other Eyes: No Blurry vision, No Decreased vision, No Double vision, No Dry eyes, No Excessive tearing, No Eye Pain, No Itchy Eyes, No Loss of vision, No Photophobia , No Scotomata, No Uses contacts, No Uses glasses, No Other HEENT: No: Heacaches, Visual Changes, Hearing change, Nasal congestion, Nasal discharge, Oral lesions, Sinus pain, Sore Throat, Epistaxis, Sneezing, Snoring, Tinnitus, Vertigo, Vocal changes, Other ALLERGY AND IMMUNOLOGY: No: Hives, Insect Bite Sensitivity, Itchy/Watery Eyes, Nasal Congestion, Post Nasal Drip, Seasonal Allergies, Other Hematological and Lymphatic: No: Bleeding Problems, Blood Clots, Blood Transfusions, Brusing, Night Sweats, Pallor, Swollen Lymph Nodes, Other ENDOCRINE: No: Breast Changes, Galactorrhea, Hair Pattern Changes, Hot Flashes , Malaise/lethargy, Mood Swings, Palpitations, Polydipsia/polyuria, Skin Changes , Temperature Intolerance, Unexpected Weight Changes, Other Breast: No New/Changing Breast Lumps, No Nipple changes, No Nipple discharge, No Other Respiratory: No: Cough, Hemoptysis, Orthopnea, Pleuritic Pain, Shortness of breath, SOB with excertion, Sputum Changes, Stridor, Tachypnea, Wheezing, Other Cardiovascular: No Chest Pain, No Palpitations, No Orthopnea, No Paroxysmal Noc. Dyspnea, No Edema, No Lt Headedness, No Other Gastrointestinal: Yes Nausea, Yes Abdominal Pain Genitourinary: No Dysuria, No Frequency, No Incontinence, No Hematuria, No Retention, No Discharge, No Urgency, No Pain, No Flank Pain, No Other, No , No , No , No , No , No , No Musculoskeletal: No Gait Disturbance, No Joint Pain, No Joint Stiffness, No Joint Swelling, No Muscle Pain, No Muscular Weakness, No Pain In:, No Swelling In:, No Other Neurological: No Behavorial Changes, No Bowel/Bladder ControlChng, No Confusion , No Dizziness, No Gait Disturbance, No Headaches, No Impaired Coord/balance, No Memory Loss, No Numbness/Tingling, No Seizures, No Speech Problems, No Tremors, No Visual Changes, No Weakness, No Other Skin: No Dry Skin, No Eczema, No Hair Changes, No Lumps, No Mole Changes, No Mottling, No Nail Changes, No Pruritus, No Rash, No Skin Lesion Changes, No Other, No Acne Physical Exam General: Alert, Oriented X3, Cooperative, No acute distress HEENT: Atraumatic, PERRLA, EOMI Lungs: Clear to auscultation, Normal air movement Heart: S1S2, RRR, no thrills, no rubs, no gallops, no murmurs Cardiovascular: S1, S2 Breasts: Normal Abdomen: Soft, Other (tenderness on palpatin mid abd; positive mid abd vertical scar, well healed) Rectal Exam: not examined PELVIC: Nml ext genitalia Extremities: No clubbing, No cyanosis, No edema, Normal pulses, No tenderness/ swelling Skin: No rashes, No breakdown, No significant lesion Neuro: Normal gait, Normal speech, Strength at 5/5 X4 ext, Normal tone, Sensation intact, Cranial nerves 3-12 NL, Reflexes 2+ Vitals Vitals Vital Signs Date Time Temp Pulse Resp B/P (MAP) Pulse Ox O2 Delivery O2 Flow Rate FiO2 12/13/16 14:16 18 99 12/13/16 13:27 98.4 77 148/78 (101) Room Air 98.4 Labs Labs Laboratory Tests Test 12/13/16 14:00 White Blood Count 5.1 x10^3/uL (4.0-11.0) Red Blood Count 3.52 x10^6/uL (3.50-5.40) Hemoglobin 8.7 g/dL (12.0-15.5) Hematocrit 27.6 % (36.0-47.0) Mean Corpuscular Volume 78 fL (79-100) Mean Corpuscular Hemoglobin 25 pg (25-35) Mean Corpuscular Hemoglobin Concent 32 g/dL (31-37) Red Cell Distribution Width 19.2 % (11.5-14.5) Platelet Count 244 x10^3/uL (140-400) Neutrophils (%) (Auto) 61 % (31-73) Lymphocytes (%) (Auto) 28 % (24-48) Monocytes (%) (Auto) 7 % (0-9) Eosinophils (%) (Auto) 3 % (0-3) Basophils (%) (Auto) 1 % (0-3) Neutrophils # (Auto) 3.1 x10^3uL (1.8-7.7) Lymphocytes # (Auto) 1.4 x10^3/uL (1.0-4.8) Monocytes # (Auto) 0.4 x10^3/uL (0.0-1.1) Eosinophils # (Auto) 0.1 x10^3/uL (0.0-0.7) Basophils # (Auto) 0.0 x10^3/uL (0.0-0.2) Urine Color Yellow Urine Clarity Clear Urine pH 5.5 Urine Specific Line [place] 1.025 Urine Protein Negative mg/dL (NEG-TRACE) Urine Glucose (UA) Negative mg/dL (NEG) Urine Ketones (Stick) Negative mg/dL (NEG) Urine Blood Negative (NEG) Urine Nitrite Negative (NEG) Urine Bilirubin Negative (NEG) Urine Urobilinogen Dipstick 0.2 mg/dL (0.2 mg/dL) Urine Leukocyte Esterase Negative (NEG) Urine RBC 0 /HPF (0-2) Urine WBC Occ /HPF (0-4) Urine Squamous Epithelial Cells Few /LPF Urine Bacteria 0 /HPF (0-FEW) Urine Mucus Mod /LPF Sodium Level 143 mmol/L (136-145) Potassium Level 3.6 mmol/L (3.5-5.1) Chloride Level 109 mmol/L (98-107) Carbon Dioxide Level 26 mmol/L (21-32) Anion Gap 8 (6-14) Blood Urea Nitrogen 9 mg/dL (7-20) Creatinine 0.7 mg/dL (0.6-1.0) Estimated GFR (Cockcroft-Gault) 92.2 Glucose Level 91 mg/dL (70-99) Calcium Level 8.1 mg/dL (8.5-10.1) Total Bilirubin 0.2 mg/dL (0.2-1.0) Direct Bilirubin 0.1 mg/dL (0.0-0.2) Aspartate Amino Transf (AST/SGOT) 15 U/L (15-37) Alanine Aminotransferase (ALT/SGPT) 27 U/L (14-59) Alkaline Phosphatase 88 U/L (46-116) Creatine Kinase 81 U/L (26-192) Creatine Kinase MB (Mass) < 0.5 ng/mL (0.0-3.6) Creatine Kinase MB Relative Index % (0-4) Total Protein 6.3 g/dL (6.4-8.2) Albumin 3.4 g/dL (3.4-5.0) Lipase 60 U/L (73-393) Laboratory Tests Test 12/13/16 14:00 White Blood Count 5.1 x10^3/uL (4.0-11.0) Red Blood Count 3.52 x10^6/uL (3.50-5.40) Hemoglobin 8.7 g/dL (12.0-15.5) Hematocrit 27.6 % (36.0-47.0) Mean Corpuscular Volume 78 fL (79-100) Mean Corpuscular Hemoglobin 25 pg (25-35) Mean Corpuscular Hemoglobin Concent 32 g/dL (31-37) Red Cell Distribution Width 19.2 % (11.5-14.5) Platelet Count 244 x10^3/uL (140-400) Neutrophils (%) (Auto) 61 % (31-73) Lymphocytes (%) (Auto) 28 % (24-48) Monocytes (%) (Auto) 7 % (0-9) Eosinophils (%) (Auto) 3 % (0-3) Basophils (%) (Auto) 1 % (0-3) Neutrophils # (Auto) 3.1 x10^3uL (1.8-7.7) Lymphocytes # (Auto) 1.4 x10^3/uL (1.0-4.8) Monocytes # (Auto) 0.4 x10^3/uL (0.0-1.1) Eosinophils # (Auto) 0.1 x10^3/uL (0.0-0.7) Basophils # (Auto) 0.0 x10^3/uL (0.0-0.2) Urine Color Yellow Urine Clarity Clear Urine pH 5.5 Urine Specific Line [place] 1.025 Urine Protein Negative mg/dL (NEG-TRACE) Urine Glucose (UA) Negative mg/dL (NEG) Urine Ketones (Stick) Negative mg/dL (NEG) Urine Blood Negative (NEG) Urine Nitrite Negative (NEG) Urine Bilirubin Negative (NEG) Urine Urobilinogen Dipstick 0.2 mg/dL (0.2 mg/dL) Urine Leukocyte Esterase Negative (NEG) Urine RBC 0 /HPF (0-2) Urine WBC Occ /HPF (0-4) Urine Squamous Epithelial Cells Few /LPF Urine Bacteria 0 /HPF (0-FEW) Urine Mucus Mod /LPF Sodium Level 143 mmol/L (136-145) Potassium Level 3.6 mmol/L (3.5-5.1) Chloride Level 109 mmol/L (98-107) Carbon Dioxide Level 26 mmol/L (21-32) Anion Gap 8 (6-14) Blood Urea Nitrogen 9 mg/dL (7-20) Creatinine 0.7 mg/dL (0.6-1.0) Estimated GFR (Cockcroft-Gault) 92.2 Glucose Level 91 mg/dL (70-99) Calcium Level 8.1 mg/dL (8.5-10.1) Total Bilirubin 0.2 mg/dL (0.2-1.0) Direct Bilirubin 0.1 mg/dL (0.0-0.2) Aspartate Amino Transf (AST/SGOT) 15 U/L (15-37) Alanine Aminotransferase (ALT/SGPT) 27 U/L (14-59) Alkaline Phosphatase 88 U/L (46-116) Creatine Kinase 81 U/L (26-192) Creatine Kinase MB (Mass) < 0.5 ng/mL (0.0-3.6) Creatine Kinase MB Relative Index % (0-4) Total Protein 6.3 g/dL (6.4-8.2) Albumin 3.4 g/dL (3.4-5.0) Lipase 60 U/L (73-393) VTE Prophylaxis Ordered VTE Prophylaxis Devices: Yes VTE Pharmacological Prophylaxi: Yes Assessment/Plan Assessment/Plan 1. Acute on chronic abd pain, 2. NArc seeking behavior 3. ANemia - claims GI has her planned for capsule endoscopy 4. Hx gastric bypass 5. Borderline personality d/o? 6. Proctitis/colitis recent hx PLAN: Liquid diet GI consult Rsume meds Rsume tacos cipro and yl ADAT Supportive care OBS ARTIE BETTENCOURT MD December 13, 2016 16:02
[2016-12-13] MEDS: SUCRALFATE 1 GM TABLET. PO SCH ×2 (17:00→21:13)
[2016-12-13] MEDS: PANTOPRAZOLE 40 MG TABLET.DR. PO SCH (18:06)
[2016-12-13] MEDS: fentaNYL PF VIAL 100 MCG/2 ML VIAL IV PRN ×3 (18:08→22:27)
[2016-12-13 19:20] VITALS: BP 119/62
[2016-12-13] MEDS: DIVALPROEX DELAYED RELEASE 500 MG TABLET.DR. PO SCH (20:20)
[2016-12-13] MEDS: CIPROFLOXACIN HCL 250 MG TABLET. PO SCH (20:20)
[2016-12-13] MEDS: SERTRALINE 50 MG TABLET. PO SCH (20:21)
[2016-12-13] MEDS: OLANZapine 5 MG TABLET PO SCH (20:21)
[2016-12-13] MEDS ORDERED: ZOLPIDEM 5 MG TABLET. PO SCH (21:00)
[2016-12-13] MEDS ORDERED: NON FORMULARY ITEM (Omeprazole 1 CAP) PO SCH (21:00)
[2016-12-13] MEDS: metroNIDAZOLE 500 MG TABLET PO SCH (22:26)
[2016-12-13] MEDS ORDERED: ZOLPIDEM 5 MG TABLET. PO PRN (22:30)
[2016-12-13 23:20] VITALS: BP 93/49
[2016-12-14] MEDS: ONDANSETRON PF 4 MG/2 ML VIAL. IV PRN ×3 (02:17→17:07)
[2016-12-14 02:23] VITALS: BP 116/75
[2016-12-14] MEDS: fentaNYL PF VIAL 100 MCG/2 ML VIAL IV PRN ×9 (02:30→23:59)
[2016-12-14] MEDS: metroNIDAZOLE 500 MG TABLET PO SCH ×3 (05:00→21:00)
[2016-12-14 05:23] LABS: BASO % 1 % (0-3); EOS % 3 % (0-3); HEMATOCRIT 26.1 % (36.0-47.0); HEMOGLOBIN 8.4 g/dL (12.0-15.5); LYMPH # 1.2 x10^3/uL (1.0-4.8); LYMPH % 30 % (24-48); MEAN CORPUSCULAR HEMOGLOBIN 25 pg (25-35); MEAN CORPUSCULAR HGB CONC 32 g/dL (31-37); MEAN CORPUSCULAR VOLUME 78 fL (79-100); MONO % 7 % (0-9); NEUT % 60 % (31-73); PLATELET COUNT 221 x10^3/uL (140-400); RED BLOOD COUNT 3.33 x10^6/uL (3.50-5.40); RED CELL DISTRIBUTION WIDTH 18.8 % (11.5-14.5); WHITE BLOOD COUNT 4.1 x10^3/uL (4.0-11.0)
[2016-12-14 05:37] LABS: CALCIUM 7.8 mg/dL (8.5-10.1); CREATININE 0.6 mg/dL (0.6-1.0); GFR 110.2
[2016-12-14 07:00] VITALS: BP 128/77
[2016-12-14] MEDS ORDERED: FERROUS SULFATE 325 MG TABLET. PO SCH (08:00)
[2016-12-14] MEDS: FERROUS SULFATE 325 MG TABLET. PO SCH (08:00)
[2016-12-14] MEDS: PANTOPRAZOLE 40 MG TABLET.DR. PO SCH ×2 (08:07→17:06)
[2016-12-14] MEDS: CIPROFLOXACIN HCL 250 MG TABLET. PO SCH ×2 (08:08→21:00)
[2016-12-14] MEDS: DIVALPROEX DELAYED RELEASE 500 MG TABLET.DR. PO SCH ×2 (08:08→20:59)
[2016-12-14] MEDS: SUCRALFATE 1 GM TABLET. PO SCH ×4 (08:08→21:00)
--- NOTE | 2016-12-14 10:14 | PDOC ---
Subjective: Subjective: Feels grumblings and thinks she will have a stool soon Objective: Vital Signs: Vital Signs Date Time Temp Pulse Resp B/P (MAP) Pulse Ox O2 Delivery O2 Flow Rate FiO2 12/14/16 08:45 Room Air 12/14/16 07:00 98.4 55 18 128/77 (94) 100 98.4 Labs: Laboratory Tests Test 12/13/16 14:00 12/14/16 05:10 White Blood Count 5.1 x10^3/uL (4.0-11.0) 4.1 x10^3/uL (4.0-11.0) Red Blood Count 3.52 x10^6/uL (3.50-5.40) 3.33 x10^6/uL (3.50-5.40) Hemoglobin 8.7 g/dL (12.0-15.5) 8.4 g/dL (12.0-15.5) Hematocrit 27.6 % (36.0-47.0) 26.1 % (36.0-47.0) Mean Corpuscular Volume 78 fL (79-100) 78 fL (79-100) Mean Corpuscular Hemoglobin 25 pg (25-35) 25 pg (25-35) Mean Corpuscular Hemoglobin Concent 32 g/dL (31-37) 32 g/dL (31-37) Red Cell Distribution Width 19.2 % (11.5-14.5) 18.8 % (11.5-14.5) Platelet Count 244 x10^3/uL (140-400) 221 x10^3/uL (140-400) Neutrophils (%) (Auto) 61 % (31-73) 60 % (31-73) Lymphocytes (%) (Auto) 28 % (24-48) 30 % (24-48) Monocytes (%) (Auto) 7 % (0-9) 7 % (0-9) Eosinophils (%) (Auto) 3 % (0-3) 3 % (0-3) Basophils (%) (Auto) 1 % (0-3) 1 % (0-3) Neutrophils # (Auto) 3.1 x10^3uL (1.8-7.7) 2.4 x10^3uL (1.8-7.7) Lymphocytes # (Auto) 1.4 x10^3/uL (1.0-4.8) 1.2 x10^3/uL (1.0-4.8) Monocytes # (Auto) 0.4 x10^3/uL (0.0-1.1) 0.3 x10^3/uL (0.0-1.1) Eosinophils # (Auto) 0.1 x10^3/uL (0.0-0.7) 0.1 x10^3/uL (0.0-0.7) Basophils # (Auto) 0.0 x10^3/uL (0.0-0.2) 0.0 x10^3/uL (0.0-0.2) Urine Color Yellow Urine Clarity Clear Urine pH 5.5 Urine Specific [place] 1.025 Urine Protein Negative mg/dL (NEG-TRACE) Urine Glucose (UA) Negative mg/dL (NEG) Urine Ketones (Stick) Negative mg/dL (NEG) Urine Blood Negative (NEG) Urine Nitrite Negative (NEG) Urine Bilirubin Negative (NEG) Urine Urobilinogen Dipstick 0.2 mg/dL (0.2 mg/dL) Urine Leukocyte Esterase Negative (NEG) Urine RBC 0 /HPF (0-2) Urine WBC Occ /HPF (0-4) Urine Squamous Epithelial Cells Few /LPF Urine Bacteria 0 /HPF (0-FEW) Urine Mucus Mod /LPF Sodium Level 143 mmol/L (136-145) 143 mmol/L (136-145) Potassium Level 3.6 mmol/L (3.5-5.1) 4.0 mmol/L (3.5-5.1) Chloride Level 109 mmol/L (98-107) 110 mmol/L (98-107) Carbon Dioxide Level 26 mmol/L (21-32) 25 mmol/L (21-32) Anion Gap 8 (6-14) 8 (6-14) Blood Urea Nitrogen 9 mg/dL (7-20) 8 mg/dL (7-20) Creatinine 0.7 mg/dL (0.6-1.0) 0.6 mg/dL (0.6-1.0) Estimated GFR (Cockcroft-Gault) 92.2 110.2 Glucose Level 91 mg/dL (70-99) 92 mg/dL (70-99) Calcium Level 8.1 mg/dL (8.5-10.1) 7.8 mg/dL (8.5-10.1) Total Bilirubin 0.2 mg/dL (0.2-1.0) Direct Bilirubin 0.1 mg/dL (0.0-0.2) Aspartate Amino Transf (AST/SGOT) 15 U/L (15-37) Alanine Aminotransferase (ALT/SGPT) 27 U/L (14-59) Alkaline Phosphatase 88 U/L (46-116) Creatine Kinase 81 U/L (26-192) Creatine Kinase MB (Mass) < 0.5 ng/mL (0.0-3.6) Creatine Kinase MB Relative Index % (0-4) Total Protein 6.3 g/dL (6.4-8.2) Albumin 3.4 g/dL (3.4-5.0) Lipase 60 U/L (73-393) Physical Exam: Physical Exam: GEN: NAD, sitting up in bed in ER HEENT: Atraumatic, PERRL LUNGS: CTAB HEART: RRR ABD: surgical scars, diffusely tender to light palpation, BS+ EXTREMITY: No edema SKIN: No rashes, no jaundice NEURO/PSYCH: A & O 3 Assessment & Plan: Assessment : A/P: A/P: N/v, abd pain, diarrhea, recurrent GI bleeding, multiple abd surgeries -extensive workup as above- Hgb stable at 8.4 today PMH c diff -- Plan: Probably doesn't need abx given PMH c diff. Await stool sample Continue other GI meds. Meckel's scan on Friday. Follow-up w/ bariatric surgery at [facility]. ?drug-seeking behavior in the past Problems: NETTIE NG MD December 14, 2016 10:14
[2016-12-14 10:49] VITALS: BP 119/74
--- NOTE | 2016-12-14 13:50 | PDOC ---
PROGRESS NOTES Chief Complaint Chief Complaint 1. Acute on chronic abd pain, 2. NArc seeking behavior 3. ANemia - claims GI has her planned for capsule endoscopy 4. Hx gastric bypass 5. Borderline personality d/o? 6. Proctitis/colitis recent hx History of Present Illness History of Present Illness Grumbling stomach but feels can try some solids Planned for [facility]ck[facility]'s scan on friday GI note reviewed CAll last night for 10 mg ambien (was ordered 5 mgs) HAd a good night sleep PLAn: MAke ambien 10mg RTC Meckels Friday Ok for GI soft today dw PT and RN Vitals Vitals Vital Signs Date Time Temp Pulse Resp B/P (MAP) Pulse Ox O2 Delivery O2 Flow Rate FiO2 12/14/16 11:48 Room Air 12/14/16 10:49 97.8 56 18 119/74 (89) 98 97.8 Physical Exam General: Alert, Oriented X3, Cooperative, No acute distress Lungs: Clear Abdomen: Soft, Other (tenderness on palpatin mid abd; positive mid abd vertical scar, well healed) Extremities: No clubbing, No cyanosis, No edema, Normal pulses, No tenderness/ swelling Skin: No rashes, No breakdown, No significant lesion Labs LABS Laboratory Tests Test 12/13/16 14:00 12/14/16 05:10 White Blood Count 5.1 x10^3/uL (4.0-11.0) 4.1 x10^3/uL (4.0-11.0) Red Blood Count 3.52 x10^6/uL (3.50-5.40) 3.33 x10^6/uL (3.50-5.40) Hemoglobin 8.7 g/dL (12.0-15.5) 8.4 g/dL (12.0-15.5) Hematocrit 27.6 % (36.0-47.0) 26.1 % (36.0-47.0) Mean Corpuscular Volume 78 fL (79-100) 78 fL (79-100) Mean Corpuscular Hemoglobin 25 pg (25-35) 25 pg (25-35) Mean Corpuscular Hemoglobin Concent 32 g/dL (31-37) 32 g/dL (31-37) Red Cell Distribution Width 19.2 % (11.5-14.5) 18.8 % (11.5-14.5) Platelet Count 244 x10^3/uL (140-400) 221 x10^3/uL (140-400) Neutrophils (%) (Auto) 61 % (31-73) 60 % (31-73) Lymphocytes (%) (Auto) 28 % (24-48) 30 % (24-48) Monocytes (%) (Auto) 7 % (0-9) 7 % (0-9) Eosinophils (%) (Auto) 3 % (0-3) 3 % (0-3) Basophils (%) (Auto) 1 % (0-3) 1 % (0-3) Neutrophils # (Auto) 3.1 x10^3uL (1.8-7.7) 2.4 x10^3uL (1.8-7.7) Lymphocytes # (Auto) 1.4 x10^3/uL (1.0-4.8) 1.2 x10^3/uL (1.0-4.8) Monocytes # (Auto) 0.4 x10^3/uL (0.0-1.1) 0.3 x10^3/uL (0.0-1.1) Eosinophils # (Auto) 0.1 x10^3/uL (0.0-0.7) 0.1 x10^3/uL (0.0-0.7) Basophils # (Auto) 0.0 x10^3/uL (0.0-0.2) 0.0 x10^3/uL (0.0-0.2) Urine Color Yellow Urine Clarity Clear Urine pH 5.5 Urine Specific [place] 1.025 Urine Protein Negative mg/dL (NEG-TRACE) Urine Glucose (UA) Negative mg/dL (NEG) Urine Ketones (Stick) Negative mg/dL (NEG) Urine Blood Negative (NEG) Urine Nitrite Negative (NEG) Urine Bilirubin Negative (NEG) Urine Urobilinogen Dipstick 0.2 mg/dL (0.2 mg/dL) Urine Leukocyte Esterase Negative (NEG) Urine RBC 0 /HPF (0-2) Urine WBC Occ /HPF (0-4) Urine Squamous Epithelial Cells Few /LPF Urine Bacteria 0 /HPF (0-FEW) Urine Mucus Mod /LPF Sodium Level 143 mmol/L (136-145) 143 mmol/L (136-145) Potassium Level 3.6 mmol/L (3.5-5.1) 4.0 mmol/L (3.5-5.1) Chloride Level 109 mmol/L (98-107) 110 mmol/L (98-107) Carbon Dioxide Level 26 mmol/L (21-32) 25 mmol/L (21-32) Anion Gap 8 (6-14) 8 (6-14) Blood Urea Nitrogen 9 mg/dL (7-20) 8 mg/dL (7-20) Creatinine 0.7 mg/dL (0.6-1.0) 0.6 mg/dL (0.6-1.0) Estimated GFR (Cockcroft-Gault) 92.2 110.2 Glucose Level 91 mg/dL (70-99) 92 mg/dL (70-99) Calcium Level 8.1 mg/dL (8.5-10.1) 7.8 mg/dL (8.5-10.1) Total Bilirubin 0.2 mg/dL (0.2-1.0) Direct Bilirubin 0.1 mg/dL (0.0-0.2) Aspartate Amino Transf (AST/SGOT) 15 U/L (15-37) Alanine Aminotransferase (ALT/SGPT) 27 U/L (14-59) Alkaline Phosphatase 88 U/L (46-116) Creatine Kinase 81 U/L (26-192) Creatine Kinase MB (Mass) < 0.5 ng/mL (0.0-3.6) Creatine Kinase MB Relative Index % (0-4) Total Protein 6.3 g/dL (6.4-8.2) Albumin 3.4 g/dL (3.4-5.0) Lipase 60 U/L (73-393) Review of Systems Review of Systems quesy stomach, no emesis, claims nausea,. no cp, soa Assessment and Plan Assessmemt and Plan Problems Medical Problems: (1) Nausea and vomiting Status: Acute Problems: Comment Review of Relevant I have reviewed the following items fredo (where applicable) has been applied. Labs Laboratory Tests Test 12/13/16 14:00 12/14/16 05:10 White Blood Count 5.1 x10^3/uL (4.0-11.0) 4.1 x10^3/uL (4.0-11.0) Red Blood Count 3.52 x10^6/uL (3.50-5.40) 3.33 x10^6/uL (3.50-5.40) Hemoglobin 8.7 g/dL (12.0-15.5) 8.4 g/dL (12.0-15.5) Hematocrit 27.6 % (36.0-47.0) 26.1 % (36.0-47.0) Mean Corpuscular Volume 78 fL (79-100) 78 fL (79-100) Mean Corpuscular Hemoglobin 25 pg (25-35) 25 pg (25-35) Mean Corpuscular Hemoglobin Concent 32 g/dL (31-37) 32 g/dL (31-37) Red Cell Distribution Width 19.2 % (11.5-14.5) 18.8 % (11.5-14.5) Platelet Count 244 x10^3/uL (140-400) 221 x10^3/uL (140-400) Neutrophils (%) (Auto) 61 % (31-73) 60 % (31-73) Lymphocytes (%) (Auto) 28 % (24-48) 30 % (24-48) Monocytes (%) (Auto) 7 % (0-9) 7 % (0-9) Eosinophils (%) (Auto) 3 % (0-3) 3 % (0-3) Basophils (%) (Auto) 1 % (0-3) 1 % (0-3) Neutrophils # (Auto) 3.1 x10^3uL (1.8-7.7) 2.4 x10^3uL (1.8-7.7) Lymphocytes # (Auto) 1.4 x10^3/uL (1.0-4.8) 1.2 x10^3/uL (1.0-4.8) Monocytes # (Auto) 0.4 x10^3/uL (0.0-1.1) 0.3 x10^3/uL (0.0-1.1) Eosinophils # (Auto) 0.1 x10^3/uL (0.0-0.7) 0.1 x10^3/uL (0.0-0.7) Basophils # (Auto) 0.0 x10^3/uL (0.0-0.2) 0.0 x10^3/uL (0.0-0.2) Urine Color Yellow Urine Clarity Clear Urine pH 5.5 Urine Specific [place] 1.025 Urine Protein Negative mg/dL (NEG-TRACE) Urine Glucose (UA) Negative mg/dL (NEG) Urine Ketones (Stick) Negative mg/dL (NEG) Urine Blood Negative (NEG) Urine Nitrite Negative (NEG) Urine Bilirubin Negative (NEG) Urine Urobilinogen Dipstick 0.2 mg/dL (0.2 mg/dL) Urine Leukocyte Esterase Negative (NEG) Urine RBC 0 /HPF (0-2) Urine WBC Occ /HPF (0-4) Urine Squamous Epithelial Cells Few /LPF Urine Bacteria 0 /HPF (0-FEW) Urine Mucus Mod /LPF Sodium Level 143 mmol/L (136-145) 143 mmol/L (136-145) Potassium Level 3.6 mmol/L (3.5-5.1) 4.0 mmol/L (3.5-5.1) Chloride Level 109 mmol/L (98-107) 110 mmol/L (98-107) Carbon Dioxide Level 26 mmol/L (21-32) 25 mmol/L (21-32) Anion Gap 8 (6-14) 8 (6-14) Blood Urea Nitrogen 9 mg/dL (7-20) 8 mg/dL (7-20) Creatinine 0.7 mg/dL (0.6-1.0) 0.6 mg/dL (0.6-1.0) Estimated GFR (Cockcroft-Gault) 92.2 110.2 Glucose Level 91 mg/dL (70-99) 92 mg/dL (70-99) Calcium Level 8.1 mg/dL (8.5-10.1) 7.8 mg/dL (8.5-10.1) Total Bilirubin 0.2 mg/dL (0.2-1.0) Direct Bilirubin 0.1 mg/dL (0.0-0.2) Aspartate Amino Transf (AST/SGOT) 15 U/L (15-37) Alanine Aminotransferase (ALT/SGPT) 27 U/L (14-59) Alkaline Phosphatase 88 U/L (46-116) Creatine Kinase 81 U/L (26-192) Creatine Kinase MB (Mass) < 0.5 ng/mL (0.0-3.6) Creatine Kinase MB Relative Index % (0-4) Total Protein 6.3 g/dL (6.4-8.2) Albumin 3.4 g/dL (3.4-5.0) Lipase 60 U/L (73-393) Laboratory Tests Test 12/13/16 14:00 12/14/16 05:10 White Blood Count 5.1 x10^3/uL (4.0-11.0) 4.1 x10^3/uL (4.0-11.0) Red Blood Count 3.52 x10^6/uL (3.50-5.40) 3.33 x10^6/uL (3.50-5.40) Hemoglobin 8.7 g/dL (12.0-15.5) 8.4 g/dL (12.0-15.5) Hematocrit 27.6 % (36.0-47.0) 26.1 % (36.0-47.0) Mean Corpuscular Volume 78 fL (79-100) 78 fL (79-100) Mean Corpuscular Hemoglobin 25 pg (25-35) 25 pg (25-35) Mean Corpuscular Hemoglobin Concent 32 g/dL (31-37) 32 g/dL (31-37) Red Cell Distribution Width 19.2 % (11.5-14.5) 18.8 % (11.5-14.5) Platelet Count 244 x10^3/uL (140-400) 221 x10^3/uL (140-400) Neutrophils (%) (Auto) 61 % (31-73) 60 % (31-73) Lymphocytes (%) (Auto) 28 % (24-48) 30 % (24-48) Monocytes (%) (Auto) 7 % (0-9) 7 % (0-9) Eosinophils (%) (Auto) 3 % (0-3) 3 % (0-3) Basophils (%) (Auto) 1 % (0-3) 1 % (0-3) Neutrophils # (Auto) 3.1 x10^3uL (1.8-7.7) 2.4 x10^3uL (1.8-7.7) Lymphocytes # (Auto) 1.4 x10^3/uL (1.0-4.8) 1.2 x10^3/uL (1.0-4.8) Monocytes # (Auto) 0.4 x10^3/uL (0.0-1.1) 0.3 x10^3/uL (0.0-1.1) Eosinophils # (Auto) 0.1 x10^3/uL (0.0-0.7) 0.1 x10^3/uL (0.0-0.7) Basophils # (Auto) 0.0 x10^3/uL (0.0-0.2) 0.0 x10^3/uL (0.0-0.2) Urine Color Yellow Urine Clarity Clear Urine pH 5.5 Urine Specific [place] 1.025 Urine Protein Negative mg/dL (NEG-TRACE) Urine Glucose (UA) Negative mg/dL (NEG) Urine Ketones (Stick) Negative mg/dL (NEG) Urine Blood Negative (NEG) Urine Nitrite Negative (NEG) Urine Bilirubin Negative (NEG) Urine Urobilinogen Dipstick 0.2 mg/dL (0.2 mg/dL) Urine Leukocyte Esterase Negative (NEG) Urine RBC 0 /HPF (0-2) Urine WBC Occ /HPF (0-4) Urine Squamous Epithelial Cells Few /LPF Urine Bacteria 0 /HPF (0-FEW) Urine Mucus Mod /LPF Sodium Level 143 mmol/L (136-145) 143 mmol/L (136-145) Potassium Level 3.6 mmol/L (3.5-5.1) 4.0 mmol/L (3.5-5.1) Chloride Level 109 mmol/L (98-107) 110 mmol/L (98-107) Carbon Dioxide Level 26 mmol/L (21-32) 25 mmol/L (21-32) Anion Gap 8 (6-14) 8 (6-14) Blood Urea Nitrogen 9 mg/dL (7-20) 8 mg/dL (7-20) Creatinine 0.7 mg/dL (0.6-1.0) 0.6 mg/dL (0.6-1.0) Estimated GFR (Cockcroft-Gault) 92.2 110.2 Glucose Level 91 mg/dL (70-99) 92 mg/dL (70-99) Calcium Level 8.1 mg/dL (8.5-10.1) 7.8 mg/dL (8.5-10.1) Total Bilirubin 0.2 mg/dL (0.2-1.0) Direct Bilirubin 0.1 mg/dL (0.0-0.2) Aspartate Amino Transf (AST/SGOT) 15 U/L (15-37) Alanine Aminotransferase (ALT/SGPT) 27 U/L (14-59) Alkaline Phosphatase 88 U/L (46-116) Creatine Kinase 81 U/L (26-192) Creatine Kinase MB (Mass) < 0.5 ng/mL (0.0-3.6) Creatine Kinase MB Relative Index % (0-4) Total Protein 6.3 g/dL (6.4-8.2) Albumin 3.4 g/dL (3.4-5.0) Lipase 60 U/L (73-393) Medications Current Medications Multi-Ingredient Mouthwash/Gargle (Gi Cocktail Single Dose) 15 ml 1X ONCE SWSW Last administered on 12/13/16 14:15; Start 12/13/16 at 13:30; Stop 12/13/16 at 13:34; Status DC Hydromorphone HCl (Dilaudid) 1 mg PRN Q15MIN PRN IV/SQ PAIN GREATER THAN 3/10 Last administered on 12/13/16 15:45; Start 12/13/16 at 13:30; Stop 12/14/16 at 13:29; Status DC Sodium Chloride 1,000 ml @ 1,000 mls/hr Q1H IV Last administered on 12/13/16 13:50; Start 12/13/16 at 13:27; Stop 12/13/16 at 14:26; Status DC Ondansetron HCl (Zofran) 4 mg 1X ONCE IV Last administered on 12/13/16 14:15 ; Start 12/13/16 at 13:30; Stop 12/13/16 at 13:34; Status DC Sodium Chloride (NORMAL SALINE FLUSH for STERILE FIELD) 10 ml STK-MED ONCE .ROUTE ; Start 12/13/16 at 13:29; Stop 12/13/16 at 13:30; Status DC Fentanyl Citrate (Fentanyl 2ml Vial) 50 mcg PRN Q2HR PRN IV pain Last administered on 12/14/16 11:08; Start 12/13/16 at 14:45 Ferrous Sulfate (Feosol) 325 mg DAILYWBKFT PO ; Start 12/14/16 at 08:00; Status UNV Divalproex Sodium (Depakote) 500 mg BID PO Last administered on 12/14/16 08:08 ; Start 12/13/16 at 21:00 Ferrous Sulfate (Feosol) 325 mg DAILYWBKFT PO ; Start 12/14/16 at 08:00 Acetaminophen/ Hydrocodone Bitart (Lortab 10/325) 1 tab PRN Q6HRS PRN PO PAIN; Start 12/13/16 at 14:45 Acetaminophen/ Hydrocodone Bitart (Lortab 5/325) 1 tab PRN Q6HRS PRN PO PAIN; Start 12/13/16 at 14:45 Acetaminophen/ Hydrocodone Bitart (Lortab 5/325) 1 tab PRN Q6HRS PRN PO PAIN; Start 12/13/16 at 14:45; Status UNV Hyoscyamine (Anaspaz) 0.125 mg PRN Q4HRS PRN PO STOMACH CRAMPING; Start at 14:45 Metronidazole (Flagyl) 250 mg Q8HRS PO Last administered on 12/14/16 05:00; Start 12/13/16 at 22:00 Pantoprazole Sodium (Protonix) 40 mg BIDAC PO Last administered on 12/14/16 08 :07; Start 12/13/16 at 16:30 Sertraline HCl (Zoloft) 50 mg HS PO Last administered on 12/13/16 20:21; Start 12/13/16 at 21:00 Sucralfate (Carafate) 1 gm QID PO Last administered on 12/14/16 08:08; Start 12/13/16 at 17:00 Ciprofloxacin (Cipro) 500 mg BID PO Last administered on 12/14/16 08:08; Start 12/13/16 at 21:00 Olanzapine (ZyPREXA) 10 mg QHS PO Last administered on 12/13/16 20:21; Start 12/13/16 at 21:00 Non-Formulary Medication 1 cap BID PO ; Start 12/13/16 at 21:00; Status UNV Ondansetron HCl (Zofran Odt) 4 mg PRN Q8HRS PRN PO NAUSEA; Start 12/13/16 at 15 :00; Stop 12/13/16 at 15:44; Status DC Non-Formulary Medication 4 mg BID PRN PO NAUSEA/VOMITING; Start 12/13/16 at 14: 45; Status UNV Zolpidem Tartrate (Ambien) 5 mg QHS PO Last administered on 12/13/16 20:19; Start 12/13/16 at 21:00; Stop 12/13/16 at 22:10; Status DC Ondansetron HCl (Zofran) 4 mg PRN Q8HRS PRN IV NAUSEA/VOMITING Last administered on 12/14/16 02:17; Start 12/13/16 at 15:30; Stop 12/14/16 at 15:29 Fentanyl Citrate (Fentanyl 2ml Vial) 50 mcg PRN Q2HR PRN IV PAIN; Start at 15:30; Stop 12/14/16 at 15:29 Ondansetron HCl (Zofran) 4 mg Q6HRS PRN IV nausea Last administered on 08:10; Start 12/13/16 at 15:45 Sodium Chloride 1,000 ml @ 100 mls/hr 1X ONCE IV Last administered on 15:45; Start 12/13/16 at 15:45; Stop 12/14/16 at 01:44; Status DC Zolpidem Tartrate (Ambien) 5 mg PRN QHS PRN PO INSOMNIA, MAY REPEAT IN 1HR Last administered on 12/13/16 22:26; Start 12/13/16 at 22:30 Active Scripts Active Flagyl (Metronidazole) 250 Mg Tablet 1 Tab PO TID Cipro (Ciprofloxacin Hcl) 500 Mg Tablet 1 Tab PO BID Lortab 5-325 mg Tablet (Hydrocodone/Acetaminophen) 1 Each Tablet 1 Tab PO PRN Q6HRS PRN Carafate (Sucralfate) 1 Gm Tablet 1 Gm PO QID Reported Ambien (Zolpidem Tartrate) 10 Mg Tablet 1 Tab PO QHS Depakote (Divalproex Sodium) 500 Mg Tablet.dr 1 Tab PO BID Zyprexa (Olanzapine) 10 Mg Tablet 1 Tab PO QHS Zoloft (Sertraline Hcl) 50 Mg Tablet 1 Tab PO DAILY Zofran (Ondansetron Hcl) 4 Mg Tablet 1 Tab PO PRN Q6HRS PRN Omeprazole 40 Mg Capsule. 1 Cap PO BID Vitals/I & O Vital Sign - Last 24 Hours 12/13/16 12/13/16 12/13/16 12/13/16 14:16 14:21 14:51 15:21 Pulse 72 72 54 Resp 18 19 B/P (MAP) 155/109 (124) 150/68 (95) 140/73 (95) Pulse Ox 99 91 95 95 O2 Delivery Room Air Room Air Room Air 12/13/16 12/13/16 12/13/16 12/13/16 15:45 15:51 16:00 16:00 Temp 97.9 97.9 97.9 97.9 Pulse 66 61 61 Resp 18 18 18 B/P (MAP) 132/62 (85) 127/69 (88) 127/69 (88) Pulse Ox 95 95 96 96 O2 Delivery Room Air Room Air Room Air Room Air 12/13/16 12/13/16 12/13/16 12/13/16 18:08 18:09 19:20 20:00 Temp 98.2 98.2 Pulse 70 Resp 18 B/P (MAP) 119/62 (81) Pulse Ox 96 96 98 O2 Delivery Room Air Room Air 12/13/16 12/14/16 12/14/16 12/14/16 23:20 02:23 07:00 07:56 Temp 97.7 97.4 98.4 97.7 97.4 98.4 Pulse 63 54 55 Resp 18 18 18 B/P (MAP) 93/49 (64) 116/75 (89) 128/77 (94) Pulse Ox 97 98 100 O2 Delivery Room Air Room Air Room Air Room Air 12/14/16 12/14/16 12/14/16 12/14/16 08:09 10:49 11:08 11:48 Temp 97.8 97.8 Pulse 56 Resp 18 B/P (MAP) 119/74 (89) Pulse Ox 98 O2 Delivery Room Air Room Air Room Air Room Air Intake and Output 12/13/16 12/13/16 12/14/16 15:00 23:00 07:00 Intake Total 300 ml 480 ml Output Total 500 ml 250 ml Balance -200 ml 230 ml ARTIE BETTENCOURT MD December 14, 2016 13:50
[2016-12-14 15:00] VITALS: BP 107/63
[2016-12-14 19:25] VITALS: BP 117/71
[2016-12-14] MEDS: ZOLPIDEM 5 MG TABLET. PO SCH (20:59)
[2016-12-14] MEDS: SERTRALINE 50 MG TABLET. PO SCH (21:00)
[2016-12-14] MEDS: OLANZapine 5 MG TABLET PO SCH (21:05)
--- NOTE | 2016-12-14 21:48 | ACF ---
Admit Criteria Forms Admit Criteria Forms Admit Criteria Forms GASTROENTEROLOGY GRG Clinical Indications for Admission to Inpatient Care (Place 'X' for any and all applicable criteria): Hospital admission is needed for appropriate care of the patient because of ANY ONE of the following: [ ]I. Hemoperitoneum(7) [ ]II. Ascites requiring acute treatment indicated by ANY ONE of the following( 8)(9): [ ]a) Hemodynamic instability remaining after emergency or observation level care (as appropriate) [ ]b) Peritoneal signs present (eg, abdominal rigidity, rebound tenderness, absent bowel sounds) [ ]c) Tachypnea, Hypoxemia, or other respiratory symptoms remain after emergency or observation level care (as appropriate) [ ]d) Suspected infected ascites as indicated by ANY ONE of the following: [ ]i) Temperature greater than 100 degrees F (37.8 degrees C) [ ]ii) Abdominal pain or tenderness not relieved by paracentesis [ ]iii) Systemic signs of infection (eg, elevated WBC count, fever) [ ]iv) Ascitic fluid analysis consistent with infection ( eg, elevated WBC count): [ ]v) Vital sign abnormality [ ]III. Suspected acute intra-abdominal process indicated by ANY ONE of the following(1)(2)(3)(4)(5): [ ]a) Hemodynamic instability [ ]b) Peritoneal signs present (eg, abdominal rigidity, rebound tenderness, absent bowel sounds) [ ]c) Bowel obstruction suspected (eg, severe vomiting, abdominal distension) [ ]d) Suspected mesenteric ischemia or ischemic colitis(6) [ ]e) Other signs or symptoms of acute abdominal disease (eg, severe pain, free air): [ ]IV. Severe liver disease indicated by ANY ONE of the following(8)(9)(10)(11)( 12)(13)(14): [ ]a) Acute hepatitis (eg, transaminase level greater than 1000 IU/L) [ ]b) Acute elevation of prothrombin time to more than 50% above normal or INR greater than 1.5 [ ]c) Bilirubin greater than 20 mg/dL (342 micromoles/L) (15) [ ]d) New-onset or worsening hepatic encephalopathy [ ]e) Acute liver necrosis [ ]f) Vomiting or dehydration that is severe of persistent [ ]g) Hemodynamic instability due to liver disease [ ]h) Acute renal failure [ ]i) Hepatic abscess [ ]j) Dehydration that is severe or persistent [ ]k) Hepatic hydrothorax(21) [ ]l) Other indications of severe liver disease (eg, persistent fever , ingestion of hepatotoxin) [ ]V. Severe diarrhea indicated by ANY ONE of the following(17)(18)(19)(20)(21)( 22)(23): [ ]a) High fever or other high-risk infection situation [ ]b) Intractable bloody diarrhea (eg, more than 6 bloody stools per day) [ ]c) Suspected Clostridium difficile-associated diarrhea(24) [ ]d) Change in mental status that persists after emergency or observation level care (as appropriate) [ ]e) Severe dehydration (eg, greater than 9% loss of body weight in children) [ ]f) Inability to maintain hydration [ ]g) Peritoneal signs present (eg, abdominal rigidity, rebound tenderness, absent bowel sounds) [ ]h) Abdominal ischemia suspected(6) [ ]i) Hemodynamic instability that persists after emergency or observation level care (as appropriate) [ ]j) Severe electrolyte abnormalities requiring inpatient care [ ]k) Acute renal failure [ ]. Suspected toxic megacolon(5)(6) [ ]VII.Severe dysphagia indicated by ANY ONE of the following(25)(26): [ ]a) Suspected esophageal perforation or fistula(27) [ ]b) Suspected cause that requires inpatient care (eg, caustic ingestion, severe esophagitis) (28) [ ]c) Severe dehydration (eg, greater than 9% loss of body weight in children) [ ]d) Inability to manage secretions or maintain hydration [ ]e) Hemodynamic instability that persists after emergency or observation level care (as appropriate) [ ]f) Severe electrolyte abnormalities requiring inpatient care [ ]g) Acute renal failure [X ]VIII.Vomiting and ANY ONE of the following (29)(30)(31)(32): [ ]a) High fever or other high-risk infection situation [ ]b) Change in mental status that persists after emergency or observation level care (as appropriate) [ ]c) Severe dehydration (e.g., greater than 9% loss of body weight in children) [ ]d) Peritoneal signs present (e.g., abdominal rigidity, rebound tenderness, absent bowel sounds) [ ]e) Hemodynamic instability that persists after emergency or observation level care (as appropriate) [ ]f) Severe electrolyte abnormalities requiring inpatient care [ ]g) Acute renal failure [ ]h) Bowel obstruction suspected (e.g., severe vomiting, abdominal distension) [X]i) Vomiting that is severe or persistent after medical treatment [ ]IX. Significant dehydration indicated by ANY ONE of the following(23)(24)(25) [ ]a) Clinical findings of severe dehydration indicated by ANY ONE of the following: [ ]i) Acute loss of weight from baseline (5% of body weight in adults, 9% in pediatric patients) [ ]ii) Hemodynamic instability [ ]iii) Acute renal failure [ ]iv) Serum sodium greater than 150 mEq/L (mmol/L) [ ]b) Dehydration that is persistent indicated by ALL of the following: [ ]i) Oral rehydration therapy not tolerated or insufficient to adequately correct dehydration [ ]ii) Appropriate intravenous treatment (eg, fluids) does not readily correct dehydration hours of (ie, after 12 to 24 of treatment) [ ]X. Gastroparesis and ANY ONE of the following(37)(38)(39): [ ]a) Dehydration that is severe or persistent [ ]b) Severe electrolyte abnormalities requiring inpatient care [ ]c) Acute renal failure [ ]d) Vomiting that is severe or persistent [ ]XI. Complications of transplanted liver indicated by ANY ONE of the following (40)(41): [ ]a) Acute graft rejection requiring inpatient management (eg, intravenous immunosuppression)(42) [ ]b) Failure of transplanted liver as indicated by ANY ONE of the following: [ ]i) Acute hepatitis (eg, transaminase level greater than 1000 International Units per liter (IU/L)) [ ]ii) Acute elevation of prothrombin time to more than 50% above baseline or INR greater than 1.5 [ ]iii) Bilirubin greater than 20 mg/dL (342 micromoles/L) [ ]iv) New-onset or worsening hepatic encephalopathy [ ]v) Acute elevation of serum ammonia level (eg, greater than 210 mcg/dL (150 micromoles/L)) [ ]vi) Acute liver necrosis [ ]c) Infection requiring inpatient management (eg, Hemodynamic instability, need for intravenous antimicrobial treatment)(43)(44)(45)(46)(47)(48)(49)(50) [ ]d) Other complication of transplanted liver (eg, thrombosis, autoimmune hepatitis, variceal bleeding) requiring inpatient management(51)(52) [ ]XII Complications of transplanted pancreas indicated by ANY ONE of the following(53): [ ]a) Acute graft rejection requiring inpatient management (eg, intravenous immunosuppression)(42)(54) [ ]b) Failure of transplanted pancreas as indicated by ANY ONE of the following: [ ]i) Serum amylase greater than 3 times the upper limit of normal or baseline [ ]ii) Serum lipase greater than 3 times the upper limit of normal or baseline [ ]iii) Imaging findings consistent with pancreatic inflammation or necrosis [ ]c) Infection requiring inpatient management (eg, Hemodynamic instability, need for intravenous antimicrobial treatment)(43)(44)(45)(46)(47)(48)(49)(50) [ ]d) Other complication of transplanted liver (eg, thrombosis, autoimmune hepatitis, variceal bleeding) requiring inpatient management(51)(52) [ ]X. Gastroenterology condition and ALL of the following: [ ]a) Symptom or finding for which emergency and observation care have failed or are not considered appropriate (Also use General Criteria: Observation Care as appropriate) [ ]b) Presence of ANY ONE of the following: [ ]i) A General Admission Criteria [ ]ii) A Pediatric General Admission Criteria. The original [email or web address] content created by [employer] has been revised. The portions of the content which have been revised are identified through the use of italic text or in bold,and [facility] has neither reviewed nor approved the modified material. All other unmodified content is copyright [employer]. Please see references footnoted in the original [facility] edition 2016 SHARI LONGORIA December 14, 2016 21:48
[2016-12-14 23:00] VITALS: BP 98/48
[2016-12-15] MEDS: fentaNYL PF VIAL 100 MCG/2 ML VIAL IV PRN ×9 (02:06→23:35)
[2016-12-15 03:53] VITALS: BP 107/61
[2016-12-15] MEDS: ONDANSETRON PF 4 MG/2 ML VIAL. IV PRN ×3 (04:28→17:56)
[2016-12-15] MEDS: metroNIDAZOLE 500 MG TABLET PO SCH ×3 (06:30→21:13)
[2016-12-15] MEDS: PANTOPRAZOLE 40 MG TABLET.DR. PO SCH ×2 (06:30→16:54)
[2016-12-15 07:00] VITALS: BP 125/80
[2016-12-15] MEDS: FERROUS SULFATE 325 MG TABLET. PO SCH (08:00)
[2016-12-15] MEDS: SUCRALFATE 1 GM TABLET. PO SCH ×4 (08:49→21:11)
[2016-12-15] MEDS: DIVALPROEX DELAYED RELEASE 500 MG TABLET.DR. PO SCH ×2 (08:50→21:12)
[2016-12-15] MEDS: CIPROFLOXACIN HCL 250 MG TABLET. PO SCH ×2 (08:50→21:12)
[2016-12-15 11:00] VITALS: BP 117/75
--- NOTE | 2016-12-15 11:42 | PDOC ---
PROGRESS NOTES Chief Complaint Chief Complaint 1. Acute on chronic abd pain, 2. NArc seeking behavior 3. ANemia - claims GI has her planned for capsule endoscopy 4. Hx gastric bypass 5. Borderline personality d/o? 6. 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 PLAN: Meckels scan planned for friday per gI If neg, home pls dw PT and RN Vitals Vitals Vital Signs Date Time Temp Pulse Resp B/P (MAP) Pulse Ox O2 Delivery O2 Flow Rate FiO2 12/15/16 11:00 98.1 65 18 117/75 (89) 94 Room Air 98.1 Physical Exam General: Alert, Oriented X3, Cooperative, No acute distress Lungs: Clear Abdomen: Soft, Other (tenderness on palpatin mid abd; positive mid abd vertical scar, well healed) Extremities: No clubbing, No cyanosis, No edema, Normal pulses, No tenderness/ swelling Skin: No rashes, No breakdown, No significant lesion Review of Systems Review of Systems abd pain, no emesis, diarrhea, cp, soa Assessment and Plan Assessmemt and Plan Problems Medical Problems: (1) Nausea and vomiting Status: Acute Problems: Comment Review of Relevant I have reviewed the following items fredo (where applicable) has been applied. Labs Laboratory Tests Test 12/13/16 14:00 12/14/16 05:10 White Blood Count 5.1 x10^3/uL (4.0-11.0) 4.1 x10^3/uL (4.0-11.0) Red Blood Count 3.52 x10^6/uL (3.50-5.40) 3.33 x10^6/uL (3.50-5.40) Hemoglobin 8.7 g/dL (12.0-15.5) 8.4 g/dL (12.0-15.5) Hematocrit 27.6 % (36.0-47.0) 26.1 % (36.0-47.0) Mean Corpuscular Volume 78 fL (79-100) 78 fL (79-100) Mean Corpuscular Hemoglobin 25 pg (25-35) 25 pg (25-35) Mean Corpuscular Hemoglobin Concent 32 g/dL (31-37) 32 g/dL (31-37) Red Cell Distribution Width 19.2 % (11.5-14.5) 18.8 % (11.5-14.5) Platelet Count 244 x10^3/uL (140-400) 221 x10^3/uL (140-400) Neutrophils (%) (Auto) 61 % (31-73) 60 % (31-73) Lymphocytes (%) (Auto) 28 % (24-48) 30 % (24-48) Monocytes (%) (Auto) 7 % (0-9) 7 % (0-9) Eosinophils (%) (Auto) 3 % (0-3) 3 % (0-3) Basophils (%) (Auto) 1 % (0-3) 1 % (0-3) Neutrophils # (Auto) 3.1 x10^3uL (1.8-7.7) 2.4 x10^3uL (1.8-7.7) Lymphocytes # (Auto) 1.4 x10^3/uL (1.0-4.8) 1.2 x10^3/uL (1.0-4.8) Monocytes # (Auto) 0.4 x10^3/uL (0.0-1.1) 0.3 x10^3/uL (0.0-1.1) Eosinophils # (Auto) 0.1 x10^3/uL (0.0-0.7) 0.1 x10^3/uL (0.0-0.7) Basophils # (Auto) 0.0 x10^3/uL (0.0-0.2) 0.0 x10^3/uL (0.0-0.2) Urine Color Yellow Urine Clarity Clear Urine pH 5.5 Urine Specific Ferdinand 1.025 Urine Protein Negative mg/dL (NEG-TRACE) Urine Glucose (UA) Negative mg/dL (NEG) Urine Ketones (Stick) Negative mg/dL (NEG) Urine Blood Negative (NEG) Urine Nitrite Negative (NEG) Urine Bilirubin Negative (NEG) Urine Urobilinogen Dipstick 0.2 mg/dL (0.2 mg/dL) Urine Leukocyte Esterase Negative (NEG) Urine RBC 0 /HPF (0-2) Urine WBC Occ /HPF (0-4) Urine Squamous Epithelial Cells Few /LPF Urine Bacteria 0 /HPF (0-FEW) Urine Mucus Mod /LPF Sodium Level 143 mmol/L (136-145) 143 mmol/L (136-145) Potassium Level 3.6 mmol/L (3.5-5.1) 4.0 mmol/L (3.5-5.1) Chloride Level 109 mmol/L (98-107) 110 mmol/L (98-107) Carbon Dioxide Level 26 mmol/L (21-32) 25 mmol/L (21-32) Anion Gap 8 (6-14) 8 (6-14) Blood Urea Nitrogen 9 mg/dL (7-20) 8 mg/dL (7-20) Creatinine 0.7 mg/dL (0.6-1.0) 0.6 mg/dL (0.6-1.0) Estimated GFR (Cockcroft-Gault) 92.2 110.2 Glucose Level 91 mg/dL (70-99) 92 mg/dL (70-99) Calcium Level 8.1 mg/dL (8.5-10.1) 7.8 mg/dL (8.5-10.1) Total Bilirubin 0.2 mg/dL (0.2-1.0) Direct Bilirubin 0.1 mg/dL (0.0-0.2) Aspartate Amino Transf (AST/SGOT) 15 U/L (15-37) Alanine Aminotransferase (ALT/SGPT) 27 U/L (14-59) Alkaline Phosphatase 88 U/L (46-116) Creatine Kinase 81 U/L (26-192) Creatine Kinase MB (Mass) < 0.5 ng/mL (0.0-3.6) Creatine Kinase MB Relative Index % (0-4) Total Protein 6.3 g/dL (6.4-8.2) Albumin 3.4 g/dL (3.4-5.0) Lipase 60 U/L (73-393) Medications Current Medications Multi-Ingredient Mouthwash/Gargle (Gi Cocktail Single Dose) 15 ml 1X ONCE SWSW Last administered on 12/13/16t 14:15; Start 12/13/16 at 13:30; Stop 12/13/16 at 13:34; Status DC Hydromorphone HCl (Dilaudid) 1 mg PRN Q15MIN PRN IV/SQ PAIN GREATER THAN 3/10 Last administered on 12/13/16 15:45; Start 12/13/16 at 13:30; Stop 12/14/16 at 13:29; Status DC Sodium Chloride 1,000 ml @ 1,000 mls/hr Q1H IV Last administered on 12/13/16 13:50; Start 12/13/16 at 13:27; Stop 12/13/16 at 14:26; Status DC Ondansetron HCl (Zofran) 4 mg 1X ONCE IV Last administered on 12/13/16 14:15 ; Start 12/13/16 at 13:30; Stop 12/13/16 at 13:34; Status DC Sodium Chloride (NORMAL SALINE FLUSH for STERILE FIELD) 10 ml [employer] ONCE .ROUTE ; Start 12/13/16 at 13:29; Stop 12/13/16 at 13:30; Status DC Fentanyl Citrate (Fentanyl 2ml Vial) 50 mcg PRN Q2HR PRN IV pain Last administered on 12/15/16 08:50; Start 12/13/16 at 14:45 Ferrous Sulfate (Feosol) 325 mg DAILYWBKFT PO ; Start 12/14/16 at 08:00; Status UNV Divalproex Sodium (Depakote) 500 mg BID PO Last administered on 12/15/16 08:50 ; Start 12/13/16 at 21:00 Ferrous Sulfate (Feosol) 325 mg DAILYWBKFT PO ; Start 12/14/16 at 08:00 Acetaminophen/ Hydrocodone Bitart (Lortab 10/325) 1 tab PRN Q6HRS PRN PO SEVERE PAIN; Start 12/13/16 at 14:45 Acetaminophen/ Hydrocodone Bitart (Lortab 5/325) 1 tab PRN Q6HRS PRN PO MILD - MODERATE PAIN; Start 12/13/16 at 14:45 Acetaminophen/ Hydrocodone Bitart (Lortab 5/325) 1 tab PRN Q6HRS PRN PO PAIN; Start 12/13/16 at 14:45; Status UNV Hyoscyamine (Anaspaz) 0.125 mg PRN Q4HRS PRN PO STOMACH CRAMPING; Start at 14:45 Metronidazole (Flagyl) 250 mg Q8HRS PO Last administered on 12/15/16 06:30; Start 12/13/16 at 22:00 Pantoprazole Sodium (Protonix) 40 mg BIDAC PO Last administered on 12/15/16 06 :30; Start 12/13/16 at 16:30 Sertraline HCl (Zoloft) 50 mg HS PO Last administered on 12/14/16 21:00; Start 12/13/16 at 21:00 Sucralfate (Carafate) 1 gm QID PO Last administered on 12/14/16 21:00; Start 12/13/16 at 17:00 Ciprofloxacin (Cipro) 500 mg BID PO Last administered on 12/15/16 08:50; Start 12/13/16 at 21:00 Olanzapine (ZyPREXA) 10 mg QHS PO Last administered on 12/14/16 21:05; Start 12/13/16 at 21:00 Non-Formulary Medication 1 cap BID PO ; Start 12/13/16 at 21:00; Status UNV Ondansetron HCl (Zofran Odt) 4 mg PRN Q8HRS PRN PO NAUSEA; Start 12/13/16 at 15 :00; Stop 12/13/16 at 15:44; Status DC Non-Formulary Medication 4 mg BID PRN PO NAUSEA/VOMITING; Start 12/13/16 at 14: 45; Status UNV Zolpidem Tartrate (Ambien) 5 mg QHS PO Last administered on 12/13/16 20:19; Start 12/13/16 at 21:00; Stop 12/13/16 at 22:10; Status DC Ondansetron HCl (Zofran) 4 mg PRN Q8HRS PRN IV NAUSEA/VOMITING Last administered on 12/14/16 02:17; Start 12/13/16 at 15:30; Stop 12/14/16 at 15:29 ; Status DC Fentanyl Citrate (Fentanyl 2ml Vial) 50 mcg PRN Q2HR PRN IV PAIN; Start at 15:30; Stop 12/14/16 at 15:29; Status DC Ondansetron HCl (Zofran) 4 mg Q6HRS PRN IV nausea Last administered on 10:41; Start 12/13/16 at 15:45 Sodium Chloride 1,000 ml @ 100 mls/hr 1X ONCE IV Last administered on 15:45; Start 12/13/16 at 15:45; Stop 12/14/16 at 01:44; Status DC Zolpidem Tartrate (Ambien) 5 mg PRN QHS PRN PO INSOMNIA, MAY REPEAT IN 1HR Last administered on 12/13/16 22:26; Start 12/13/16 at 22:30; Stop 12/14/16 at 13:49; Status DC Zolpidem Tartrate (Ambien) 10 mg QHS PO Last administered on 12/14/16 20:59; Start 12/14/16 at 21:00 Active Scripts Active Flagyl (Metronidazole) 250 Mg Tablet 1 Tab PO TID Cipro (Ciprofloxacin Hcl) 500 Mg Tablet 1 Tab PO BID Lortab 5-325 mg Tablet (Hydrocodone/Acetaminophen) 1 Each Tablet 1 Tab PO PRN Q6HRS PRN Carafate (Sucralfate) 1 Gm Tablet 1 Gm PO QID Reported Ambien (Zolpidem Tartrate) 10 Mg Tablet 1 Tab PO QHS Depakote (Divalproex Sodium) 500 Mg Tablet. 1 Tab PO BID Zyprexa (Olanzapine) 10 Mg Tablet 1 Tab PO QHS Zoloft (Sertraline Hcl) 50 Mg Tablet 1 Tab PO DAILY Zofran (Ondansetron Hcl) 4 Mg Tablet 1 Tab PO PRN Q6HRS PRN Omeprazole 40 Mg Capsule.dr 1 Cap PO BID Vitals/I & O Vital Sign - Last 24 Hours 12/14/16 12/14/16 12/14/16 12/14/16 13:52 15:00 17:07 19:25 Temp 97.8 98.3 97.8 98.3 Pulse 76 66 Resp 18 16 B/P (MAP) 107/63 (78) 117/71 (86) Pulse Ox 98 97 O2 Delivery Room Air Room Air Room Air Room Air 12/14/16 12/14/16 12/14/16 12/14/16 19:50 20:00 21:57 23:00 Temp 97.8 97.8 Pulse 70 Resp 18 19 B/P (MAP) 98/48 (65) Pulse Ox 97 98 O2 Delivery Room Air Room Air Room Air 12/14/16 12/15/16 12/15/16 12/15/16 23:59 02:06 02:36 03:53 Temp 97.4 97.4 Pulse 57 Resp 17 16 B/P (MAP) 107/61 (76) Pulse Ox 97 96 98 O2 Delivery Room Air Room Air Room Air 12/15/16 12/15/16 12/15/16 12/15/16 04:27 04:57 06:30 07:00 Temp 98.0 98.0 Pulse 57 Resp 18 18 B/P (MAP) 125/80 (95) Pulse Ox 98 98 96 O2 Delivery Room Air Room Air 12/15/16 12/15/16 12/15/16 08:50 10:00 11:00 Temp 98.1 98.1 Pulse 65 Resp 18 B/P (MAP) 117/75 (89) Pulse Ox 94 O2 Delivery Room Air Room Air Room Air Intake and Output 12/14/16 12/14/16 12/15/16 15:00 23:00 07:00 Intake Total 350 ml 480 ml Output Total 400 ml Balance -50 ml 480 ml ARTIE BETTENCOURT MD December 15, 2016 11:42
[2016-12-15 15:00] VITALS: BP 103/69
[2016-12-15 19:20] VITALS: BP 106/55
[2016-12-15] MEDS: ZOLPIDEM 5 MG TABLET. PO SCH (21:12)
[2016-12-15] MEDS: OLANZapine 5 MG TABLET PO SCH (21:12)
[2016-12-15] MEDS: SERTRALINE 50 MG TABLET. PO SCH (21:13)
[2016-12-15 23:20] VITALS: BP 110/54
[2016-12-16] MEDS: fentaNYL PF VIAL 100 MCG/2 ML VIAL IV PRN ×6 (01:58→12:28)
[2016-12-16 03:00] VITALS: BP 108/50
[2016-12-16] MEDS: metroNIDAZOLE 500 MG TABLET PO SCH ×2 (04:16→12:32)
[2016-12-16 07:00] VITALS: BP 104/56
[2016-12-16] MEDS: FERROUS SULFATE 325 MG TABLET. PO SCH (08:00)
[2016-12-16] MEDS: ONDANSETRON PF 4 MG/2 ML VIAL. IV PRN (08:35)
--- NOTE | 2016-12-16 11:25 | PDOC ---
Subjective: Subjective: Out of room. Objective: Objective: No GI concerns per RN. Plans to DC if Meckel's scan negative. No further bleeding. Has been eating well - said she was "going to eat all the ice cream" when she returns from scan. Vital Signs: Vital Signs Date Time Temp Pulse Resp B/P (MAP) Pulse Ox O2 Delivery O2 Flow Rate FiO2 12/16/16 10:26 99 Room Air 12/16/16 07:00 98.2 50 16 104/56 (72) 98.2 PE: no exam, out of room A/P: N/v, abd pain, diarrhea, recurrent GI bleeding, multiple abd surgeries -extensive recent workup per GI consult note (CTs, SBFT, GI bleed scan, EGD, colonoscopy) -Hgb stable -- Improved w/ stable Hgb. Will follow-up on Meckel's scan results. DC appropriate if normal. Follow-up w/ bariatric surgeon at [facility]. Only GI left is outpt [facility]. ARIAN WAYNE December 16, 2016 11:25
[2016-12-16] MEDS: PANTOPRAZOLE 40 MG TABLET.DR. PO SCH (12:30)
[2016-12-16] MEDS: SUCRALFATE 1 GM TABLET. PO SCH ×2 (12:31→13:00)
[2016-12-16] MEDS: DIVALPROEX DELAYED RELEASE 500 MG TABLET.DR. PO SCH (12:33)
[2016-12-16] MEDS: CIPROFLOXACIN HCL 250 MG TABLET. PO SCH (12:34)
--- NOTE | 2016-12-16 13:03 | RAD ---
Radionuclide Meckel's scan, 12/16/2016: History: Blood in stool The study was performed utilizing 10 mCi of technetium 99m pertechnetate. Imaging of the abdomen and pelvis was performed out to 30 minutes. No abnormal accumulation of activity is seen to suggest a Meckel's diverticulum. IMPRESSION: Negative Meckel's scan
[2016-12-16] MEDS ORDERED: HEPARIN PF 500 UNIT/5 ML DISP.SYRIN. IV ONE (14:15)
--- NOTE | 2016-12-16 14:16 | PDOC3 ---
Discharge Summary [facility] Date of Admission: December 13, 2016 Discharge Date: December 16, 2016 Admitting Diagnosis 1. Abdominal pain, acute on chronic, with several abd before EGD showed nonerosive gastritis. colonoscopy showed internal hemorrhoids, neg meckles scan 2. Prior history of gastric bypass, and multiple revision sx, with anastomotic ulcers. 3. Anxiety and depression, stable. 4. Intractable nausea, resolved. 5. likely pain meds seeker 6. chronic anemia with GIB, likely small bowel bleeding Problems: Final Diagnosis CONSULTS gi Brief Hospital Course Ms. Jacobson is a 41 old F, with gastric bypass sx and other multiple revision sx and chronic epigastric abd pain, comes for epigastric abd pain and chronic gi bleeding with dark red blood mixed in the stool. She was here every 2-3 weeks, not sure why not follow her own PCP or outpt sx and GI, likely pain meds seeker, altho pt denies. recent EGD showed non erosive gastritis, Colonoscopy showed only internal hemoroids. bleeding scan neg. small bowel series neg when dced on 11/27 last time. pt supposed to fu with GI for capsule study for small bowel bleeding since last dc, however, saying not have an appt till next month. This admission, Hb stable at 8.5. Meckles scan neg. give lortab 5/325 10 pills this time. Should not be readmitted just for pain control. should fu with her own PCP. dc flagyl and levaquin, not sure why she is not them, denies infection symptoms. dc time 40min General: Alert Heart: Regular rate, Normal S1 Lungs: Clear Abdomen: Soft, Other (epigastric area tenderness) Extremities: No clubbing, No cyanosis Skin: No rashes Patient History: Patient reports no known family medical history. Problems: Disposition home CONDITION AT DISCHARGE: Improved Diet gi soft Scheduled Divalproex Sodium (Depakote), 1 TAB PO BID, (Reported) Olanzapine (Zyprexa), 1 TAB PO QHS, (Reported) Omeprazole (Omeprazole), 1 CAP PO BID, (Reported) Sertraline Hcl (Zoloft), 1 TAB PO DAILY, (Reported) Sucralfate (Carafate), 1 GM PO QID Zolpidem Tartrate (Ambien), 1 TAB PO QHS, (Reported) Scheduled PRN Hydrocodone/Acetaminophen (Lortab 5-325 mg Tablet), 1 TAB PO PRN Q6HRS PRN for PAIN Ondansetron Hcl (Zofran), 1 TAB PO PRN Q6HRS PRN for NAUSEA, (Reported) Discontinued Medications Ciprofloxacin Hcl (Cipro), 1 TAB PO BID Metronidazole (Flagyl), 1 TAB PO TID Follow Up gi in 1-2 weeks MISTY HUNT MD December 16, 2016 14:16
== END 2016-12-16 14:30 | disposition home or self-care (01) ==
LOC: ER 14:11 → 6 SOUTH 14:53
PROVIDERS: ADMIT Internal Medicine; ATTEND Internal Medicine
DX: R10.13 Epigastric pain (principal); G89.29 Other chronic pain; K92.2 Gastrointestinal hemorrhage, unspecified; K29.70 Gastritis, unspecified, without bleeding; K64.8 Other hemorrhoids; F41.9 Anxiety disorder, unspecified; F32.9 Major depressive disorder, single episode, unspecified; D64.9 Anemia, unspecified; K31.84 Gastroparesis; K27.9 Peptic ulcer, site unspecified, unspecified as acute or chronic, without hemorrhage or perforation; K21.9 Gastro-esophageal reflux disease without esophagitis; F17.210 Nicotine dependence, cigarettes, uncomplicated; Z90.49 Acquired absence of other specified parts of digestive tract; Z98.84 Bariatric surgery status; Z72.89 Other problems related to lifestyle; Z59.9 Problem related to housing and economic circumstances, unspecified
CPT/HCPCS: 36415; 78290; 80048; 80076; 81001; 82553; 83690; 85027; 96361; 96374; 96375; 96376; 99285; A9512; G0378; J1170; J2405; J3010; J7030; G0379